=== PATIENT | male | born 1980 | race Caucasian/White ===

== ENCOUNTER 2021-01-27 11:09 | Outpatient (REF) | payer MEDICAID, SELFPAY ==
[2021-01-27 12:15] LABS: MANUAL DIFF FLAG NO
[2021-01-27 12:21] LABS: Basophils Percent Auto 0.3 % (0-2); Eosinophils Absolute Auto 0.1 X10*3/uL (0.0-0.4); Eosinophils Percent Auto 0.9 % (0-4); Hematocrit 50.9 % (42-52); Hemoglobin 16.6 g/dl (14.0-18.0); Imm Gran Abs Auto 0.04 X10*3/uL (0.00-0.03); Imm Gran Pct Auto 0.4 % (0.0-0.4); Lymphocytes Absolute Auto 1.7 X10*3/uL (1.2-4.9); Lymphocytes Percent Auto 17.8 % (20-40); Mean Corpuscular HGB Conc 32.6 g/dl (31.0-36.0); Mean Corpuscular Hemoglobin 26.3 pg (27.0-33.0); Mean Corpuscular Volume 80.5 fL (80-98); Mean Platelet Volume 10.3 fL (9.4-12.4); Monocytes Absolute Auto 0.5 X10*3/uL (0.1-1.2); Neutrophils Percent Auto 75.6 % (45-73); Platelet Count 271 X10*3/uL (160-400); Red Blood Count 6.32 X10*6/uL (4.60-5.80); Red Cell Distribution Width 16.8 % (11.0-16.0); White Blood Count 9.3 X10*3/uL (4.8-10.8)
[2021-01-27 13:00] LABS: Alanine Aminotransferase 25 U/L (0-40); Alkaline Phosphatase 55 U/L (39-117); Anion Gap 13 (12-20); Aspartate Amino Transferase 20 U/L (5-37); Bilirubin Total 0.7 mg/dL (0.0-1.0); Blood Urea Nitrogen 11 mg/dL (9-16); Calcium 9.9 mg/dL (8.4-10.2); Carbon Dioxide 23 mmol/L (22-29); Chloride 107 mmol/L (96-108); Cholesterol 199 mg/dL; Estimated Glomerular Filt Rate > 60; Glucose Random 96 mg/dL (60-115); HDL Cholesterol 42 mg/dL; LDL Cholesterol Calculated 130 mg/dl; Potassium 4.1 mmol/L (3.3-5.1); Sodium 139 mmol/L (135-145); Total Protein 7.6 g/dL (6.5-8.0); Triglycerides 136 mg/dL
[2021-01-27 13:22] LABS: Thyroid Stimulating Hormone 1.16 uIU/mL (0.32-4.0)
[2021-01-27 13:29] LABS: Estimated Average Glucose 111 mg/dL; Hemoglobin A1c % 5.5 %
== END 2021-01-27 11:10 | disposition home or self-care (01) ==
LOC: HO.LAB 11:09
PROVIDERS: PCP Internal Medicine; Visit Provider Internal Medicine
DX: F32.89 Other specified depressive episodes (principal); I10 Essential (primary) hypertension; M54.16 Radiculopathy, lumbar region; M79.642 Pain in left hand
CPT/HCPCS: 36415; 80053; 80061; 83036; 84443; 85025

== ENCOUNTER → 2021-02-10 12:41 | Outpatient (BNVA) | payer MEDICAID, SELFPAY | PROVIDERS: PCP Internal Medicine; Visit Provider Nurse Practitioner Family | DX: M47.816 Spondylosis without myelopathy or radiculopathy, lumbar region (principal); M47.819 Spondylosis without myelopathy or radiculopathy, site unspecified; M53.3 Sacrococcygeal disorders, not elsewhere classified | CPT/HCPCS: 99202 ==

== ENCOUNTER → 2021-02-23 10:20 | Outpatient (BNVA) | payer MEDICAID, SELFPAY | PROVIDERS: PCP Internal Medicine; Visit Provider Nurse Practitioner Family ==

== ENCOUNTER 2021-03-17 06:36 | Outpatient (REF) | payer MEDICAID, SELFPAY ==
--- NOTE | ~2021-03-17 | FL_ITS ---
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 Fluoroscopy time: 0.4 minutes DAP: 3.78 Gycm2 Images: 3 FINDINGS: There are spinal needles overlying the bilateral outer L2, L3, L4, and L5 neural foramen. There is contrast seen in the nerve sheaths. Some early transforaminal epidural extension is suggested. No visible vascular communication. FL/FL guidance in treatment room IMPRESSION: Fluoroscopy for pain management procedures.
== END 2021-03-17 06:37 | disposition home or self-care (01) ==
LOC: HO.RADIR 06:36
PROVIDERS: Visit Provider Internal Medicine
DX: M47.819 Spondylosis without myelopathy or radiculopathy, site unspecified (principal)
CPT/HCPCS: 64493; 64494; 64495; Q9967

== ENCOUNTER → 2021-03-26 13:45 | Outpatient (BNVA) | payer MEDICAID, SELFPAY | PROVIDERS: PCP Internal Medicine; Visit Provider Nurse Practitioner Family ==

== ENCOUNTER 2021-05-18 06:15 | Outpatient (REF) | payer MEDICAID, SELFPAY ==
--- NOTE | ~2021-05-18 | FL_ITS ---
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 COMPARISON: None. TECHNIQUE: Fluoroscopy performed by Dr. Harris. Fluoroscopy time: 0.5 minutes DAP: 11.3 Gycm2 Images: 4 FL/FL guidance in treatment room FINDINGS/IMPRESSION: Fluoroscopy was performed for procedural guidance. Please refer to the procedure report for more detailed findings.
== END 2021-05-18 06:16 | disposition home or self-care (01) ==
LOC: HO.RADIR 06:15
PROVIDERS: Visit Provider Anesthesiology
DX: M47.816 Spondylosis without myelopathy or radiculopathy, lumbar region (principal); M47.819 Spondylosis without myelopathy or radiculopathy, site unspecified; M53.3 Sacrococcygeal disorders, not elsewhere classified
CPT/HCPCS: 64493; 64494; 64495; J3300; Q9967

== ENCOUNTER → 2021-05-26 15:09 | Outpatient (BNVA) | payer MEDICAID, SELFPAY | PROVIDERS: PCP Internal Medicine; Visit Provider Nurse Practitioner Family | DX: M47.816 Spondylosis without myelopathy or radiculopathy, lumbar region (principal); M47.819 Spondylosis without myelopathy or radiculopathy, site unspecified; M53.3 Sacrococcygeal disorders, not elsewhere classified | CPT/HCPCS: 99212 ==

== ENCOUNTER → 2021-07-05 09:52 | Outpatient (BNVA) | payer MEDICAID, SELFPAY | PROVIDERS: PCP Internal Medicine; Visit Provider Anesthesiology | DX: M47.816 Spondylosis without myelopathy or radiculopathy, lumbar region (principal); M47.819 Spondylosis without myelopathy or radiculopathy, site unspecified; M53.3 Sacrococcygeal disorders, not elsewhere classified | CPT/HCPCS: 99212; J3300 ==

== ENCOUNTER → 2021-07-16 09:01 | Day surgery (SDC) | payer MEDICAID, SELFPAY ==
--- NOTE | 2021-07-16 07:33 | P.OP_ITS ---
Operative Note Operative Note Date of Service: 07/16/21 Narrative: Joe is a 41 y.o. male who came to the OR for trial of spinal cord stimulator [employer] for the treatment of post laminectomy syndrome. Preoperatively patient received clindamycin 900 mg 30 minutes before the procedure. After obtaining informed consent the patient was brought to the operating room, he was positioned prone on operating table, [employer] [employer] monitors were applied and patient was deeply sedated.? ?Time-out was performed delineating correct site, side, the nature of the procedure, patient's allergy, preoperative antibiotic if needed.? All operating room staff was participating in OR time-out procedure. Patient's entire back was prepped with ..... twice and draped with full body fenestrated drape.? Sterilely draped C-arm was brought over operating field and square picture of T11,T12, L1 L2 vertebrae as were demonstrated on the screen.? Attention FIRST? was concentrated on the left L1-L2 epidural interspace.? ? For that purpose? the projection of the right pedicle center of the L....vertebra was found on the skin using C-arm.? This location was injected with mixture of lidocaine 2% and Marcaine 0.5% 5 cc.? After that 11 blade was used to make a nola on the skin.? 10 cm 14 gauge? introducer epidural needle was inserted through the nola and advanced to?.... epidural interspace.? The? advancement of the needle was performed on anterior posterior and lateral views.? Guitar wire and loss of resistance technique were used to locate epidural space.? When guitar wire was spread in the epidural fashion, epidural lead was inserted through the skin and it was advanced to bottom of T8 position slightly left from MIDLINE.? After that location of the projection of the LEFT pedicle center of the L..... vertebra was found on the skin using C-arm.? This location was injected with mixture of lidocaine 2% and Marcaine 0.5% 5 cc.? After that 11 blade was used to make a nola on the skin.? 10 cm 14 gauge curved introducer epidural needle was inserted through the nola and advanced to ....... epidural interspace.? The advancement of the needle was performed on anterior posterior and lateral views.? Guitar wire and loss of resistance technique were used to locate epidural space.? When guitar wire was spread in the epidural fashion, epidural lead was inserted through the needle and advanced to the top of T8 epidural interspace slightly right to the existing electrode. Impedance was checked and was satisfactory .? The patient was awake at this moment and epidural leads were connected to testing device.? Testing demonstrated pain of the patient corresponding to the stimulation pattern.? After that the position of epidural leads was found to be satisfactory on the anterior posterior and lateral views.?Introducer epidural needles were carefully withdrawn and care was taken not to dislodge the epidural leads under fluoroscopy guidance. were used to fix the epidural leads to the skin after needles were withdrawn.? The care was taking to preserve the needle position under direct C-arm view.? Sterile dressing was applied and epidural leads were connected to testing device.? At this moment the patient was awaken taking outside of the operating room to PACU where he recovered uneventfully.?
[2021-07-16 09:24] VITALS: BP 148/83; PULSE 101; RESP 16; TEMP 37.2; O2SAT 100
[2021-07-16 09:34] VITALS: BMI 46.0
== END ==
PROVIDERS: PCP Internal Medicine; Visit Provider Anesthesiology
DX: M47.816 Spondylosis without myelopathy or radiculopathy, lumbar region (principal); Z53.20 Procedure and treatment not carried out because of patient's decision for unspecified reasons
CPT/HCPCS: J2250; J3010

== ENCOUNTER → 2021-08-11 07:57 | Outpatient (BNVA) | payer MEDICAID, SELFPAY | PROVIDERS: PCP Internal Medicine; Visit Provider Nurse Practitioner Family ==

== ENCOUNTER 2021-08-11 08:30 | Outpatient (REF) | payer MEDICAID, SELFPAY ==
[2021-08-11 10:02] LABS: Alanine Aminotransferase 22 U/L (0-40); Albumin Level 4.6 g/dL (3.5-5.0); Alkaline Phosphatase 54 U/L (39-117); Anion Gap 11 (12-20); Aspartate Amino Transferase 15 U/L (5-37); Bilirubin Total 0.5 mg/dL (0.0-1.0); Blood Urea Nitrogen 16 mg/dL (9-16); Calcium 10.6 mg/dL (8.4-10.2); Carbon Dioxide 31 mmol/L (22-29); Chloride 104 mmol/L (96-108); Cholesterol 186 mg/dL; Estimated Glomerular Filt Rate > 60; Glucose Random 101 mg/dL (60-115); HDL Cholesterol 54 mg/dL; LDL Cholesterol Calculated 114 mg/dl; Potassium 4.3 mmol/L (3.3-5.1); Sodium 142 mmol/L (135-145); Total Protein 7.3 g/dL (6.5-8.0); Triglycerides 94 mg/dL
== END 2021-08-11 08:31 | disposition home or self-care (01) ==
LOC: HO.LAB 08:30
PROVIDERS: PCP Internal Medicine; Visit Provider Internal Medicine
DX: M47.812 Spondylosis without myelopathy or radiculopathy, cervical region (principal); M67.813 Other specified disorders of tendon, right shoulder; M47.816 Spondylosis without myelopathy or radiculopathy, lumbar region; M47.819 Spondylosis without myelopathy or radiculopathy, site unspecified; M53.3 Sacrococcygeal disorders, not elsewhere classified; E78.00 Pure hypercholesterolemia, unspecified; F32.5 Major depressive disorder, single episode, in full remission
CPT/HCPCS: 20552; 36415; 80053; 80061; 99212

== ENCOUNTER 2021-09-14 06:11 | Outpatient (REF) | payer MEDICAID, SELFPAY ==
--- NOTE | ~2021-09-14 | FL_ITS ---
EXAMINATION: XR FLUOROSCOPY WITH IMAGES CLINICAL INFORMATION: M47.812 - Spondylosis without myelopathy or radiculopathy COMPARISON: None. TECHNIQUE: Fluoroscopy performed by Dr. Stepan Harris. Fluoroscopy time: 1.0 minutes DAP: 3.39 Gycm2 Images: 6 FINDINGS: There are spinal needles overlying the bilateral lateral masses cervical spine approximately levels of C4, C5, and C6. There is contrast in the paraspinal soft tissues and nerve sheaths. No visible vascular communication. FL/FL guidance in treatment room IMPRESSION: Fluoroscopy for pain management procedure.
== END 2021-09-14 06:12 | disposition home or self-care (01) ==
LOC: HO.RADIR 06:11
PROVIDERS: Visit Provider Anesthesiology
DX: M47.812 Spondylosis without myelopathy or radiculopathy, cervical region (principal)
CPT/HCPCS: 64490; 64491

== ENCOUNTER → 2021-09-15 11:58 | Outpatient (BNVA) | payer MEDICAID, SELFPAY | PROVIDERS: PCP Internal Medicine; Visit Provider Anesthesiology ==

== ENCOUNTER 2021-09-21 06:02 | Outpatient (REF) | payer MEDICAID, SELFPAY | END 2021-09-21 06:03 | disposition home or self-care (01) | LOC: HO.RADIR 06:02 | PROVIDERS: Visit Provider Anesthesiology | DX: Z13.89 Encounter for screening for other disorder (principal) | CPT/HCPCS: J3300; Q9967 ==

== ENCOUNTER 2021-11-22 19:10 | Inpatient (IN) | payer OTHER, MEDICAID, SELFPAY ==
[2021-11-22 19:16] VITALS: BP 144/95; BP 200/110; PULSE 80; PULSE 91; RESP 18; TEMP 36.7; O2SAT 96; BMI 51.0
--- NOTE | 2021-11-22 19:16 | ED.PSYCH ---
HPI - Psych General Chief Complaint: Anxiety Stated Complaint: Crisis, emotional distress Time Seen by Provider: 11/22/21 19:16 Source: patient Mode of arrival: EMS Limitations: no limitations History of Present Illness HPI Narrative: very intense verbal argument with father abimbola - became very anxious, wants to speak to clinician no [id number] complaint: anxiety Onset (ago): minute(s) Duration: other (improving) History of same: Yes Relieving factors: none Exacerbating factors: other (fight with family) Context: significant life stressor Associated psychiatric symptoms: other (anxiety) Associated symptoms: denies other symptoms Treatments prior to arrival: none Related Data Home Medications Medication Instructions Recorded Confirmed hydrochlorothiazide 12.5 mg tablet 12.5 mg PO DAILY 02/10/21 08/11/21 sertraline 50 mg tablet (Zoloft) 50 mg PO DAILY 02/10/21 08/11/21 testosterone cypionate 200 mg/mL 200 mg IM QWEEK ea 02/10/21 08/11/21 intramuscular kit Previous Rx's Medication Instructions Recorded ibuprofen 800 mg tablet 800 mg PO TID PRN 30 Days #90 tab 03/26/21 Allergies Allergy/AdvReac Type Severity Reaction Status Date / Time latex Allergy unknown Verified 11/22/21 19:29 hydrocodone AdvReac unknown Verified 11/22/21 19:29 Review of Systems Review of Systems: Constitutional : No Fever, No Chills ENT/Mouth : No Ear Pain, No Nasal Congestion, No sore throat Eyes: No Eye Pain, No Swelling, No Redness Cardiovascular : No Chest Pain, No SOB Respiratory : No Cough, No Sputum, No Dyspnea Gastrointestinal : No Nausea, No Vomiting, No Diarrhea, No Hematochezia, No Melena Genitourinary : No Dysuria, No Urinary Frequency, No Hematuria Musculoskeletal : No Myalgias Skin : No Skin Lesions, No rash Neuro : No Weakness, No Numbness, No Paresthesias, No Dizziness, No Headache Psych : positive Anxiety, positive Depression, no SI/HI Heme/Lymph: No Lymphadenopathy Endocrine : No Polyuria, No Polydipsia All other systems reviewed and are negative [facility] Past Medical History Attestation statement: The following information was validated with the patient. Medical History Arthritis, rheumatoid Asthma Back pain Cholecystectomy planned Depression DJD (degenerative joint disease), thoracic Hypertension Obesity Spondylosis of cervical spine Surgical History H/O arthroscopy of shoulder Social History Social History Patient Tobacco Use Status: Never used Tobacco Advance Directives: No Advance Directives Information Provided: No Physical Exam Vital Signs: Vital Signs: Last Vital Signs Temp 98.0 F 11/22/21 19:16 Pulse 91 11/22/21 19:16 Resp 18 11/22/21 19:16 BP 144/95 H 11/22/21 19:16 Pulse Ox 96 11/22/21 19:16 BMI result Body Mass Index 51.0 Appearance: Alert. Oriented X3. No acute distress. Calm and cooperative Eyes: Pupils equal, round and reactive to light. ENT: Pharynx normal. Neck: Normal inspection. Neck supple. CVS: Normal heart rate and rhythm. Pulses normal. Respiratory: No respiratory distress. Breath sounds normal. Abdomen: Soft and non-tender. Obese Skin: Skin warm and dry. Normal skin color. Normal skin turgor. Extremities: No lower extremity edema. No calf ttp Neuro: Oriented X 3. No motor deficit. No sensory deficit. Course Course Course Narrative: signed out pending CARE team input MDM - Psych MDM Narrative Medical decision making narrative: 41 yo male with hx of back issues, anxiety, low testosterone not currently receiving correct medications - at this time he had a fight with his father about moving to [place]. He felt very anxious. He has no SI/HI. Requesting to talk to SW. Will offer ativan and CARE team input. Lab Data Labs: Lab Results 11/22/21 Range/Units 19:31 COVID-19 (NIMESH) Negative (Negative) COVID-19 Clin Com See Note Discharge Plan Discharge Clinical Impression: Anxiety Patient Disposition: Still a Patient Instructions: Anxiety (ED) Prescriptions: No Action hydrochlorothiazide 12.5 mg tablet 12.5 mg PO DAILY 0RF sertraline [Zoloft] 50 mg tablet 50 mg PO DAILY 0RF testosterone cypionate 200 mg/mL kit 200 mg IM QWEEK 0RF ibuprofen 800 mg tablet 800 mg PO TID PRN (Reason: pain) 30 Days Qty: 90 0RF
[2021-11-22] MEDS: LORazepam 1 MG TABLET PO (19:30)
[2021-11-22 19:53] LABS: COVID-19 Test Negative (Negative); IDNOW Serial# 55D5AD1C
--- NOTE | 2021-11-22 20:51 | MHC.CARE ---
CARE team consult received for pt who arrived by ambulance s/p a verbal altercation with his father. Pt's MORENA called 911 after the pt made several aggressive and homicidal threats toward his father and pt's sister having to physical stand between the pt and his father. Pt reported that he has been feeling frustrated with the medication management he receives at [facility] and the care he receives at the hospital[facility], stressed and overwhelmed with the process of preparing himself and his father for moving back to [place], and coping with the challenges he experiences with his father's heavy alcohol use. Pt expressed that he doesn't feel that his medications are helping and that he needs to find someone that will help, and that he is looking forward to getting back to [place] to resume the treatment he received down there, which he stated was actually helpful. He reported that approx one year ago he and his father moved up to [place] to stay with his sister after they were evicted from their apartment in [place] when a new landlord purchased the apartment complex that they lived in. Pt reported that he is continuing to feel intense anger and frustration with his father and wanting to hurt him. He initially stated that he need to stay somewhere for a few days to clear his mind and get his medications fixed, but then reported that he wouldn't want to go to respite or anywhere that there's other people who will be around him. He reported that being in the hospital won't do anything for him because the doctor would just look at the meds and then tell me to follow up with my psych doc. Pt reported that he doesn't feel that his sister will want to him to return to the home tonight and gave this creative writer verbal permission to contact his sister. This creative writer called pt's sister, Kavya [phone], who expressed concern with how increasingly irritable and dysregulated he has been over the past month. She reported that there have been a few incidents where he has become irate and threatening, which have been worsening in severity, however tonight was a notable escalation. Her was present during the phone call and he shared that two nights ago the pt had become upset and walked out of the home, saying I'm leaving, I don't care where I go, you won't know where I'm at, I'll be . He was found outside in the rain by her , who reported that he was making comments about wanting to kill people. Kavya is advocating for the him to receive treatment to prevent the outbursts from continuing to escalate. Pt has been referred for a full crisis evaluation. ED attending physician updated re: current recommendation. [facility] unable to send a clinician at this time. This creative writer will complete the crisis evaluation.
[2021-11-22 22:06] LABS: MANUAL DIFF FLAG NO
[2021-11-22 22:12] LABS: Basophils Percent Auto 0.2 % (0-2); Eosinophils Absolute Auto 0.2 X10*3/uL (0.0-0.4); Eosinophils Percent Auto 1.7 % (0-4); Hematocrit 44.2 % (42.0-52.0); Hemoglobin 14.7 g/dl (14.0-18.0); Imm Gran Abs Auto 0.04 X10*3/uL (0.00-0.03); Imm Gran Pct Auto 0.4 % (0.0-0.4); Lymphocytes Absolute Auto 1.5 X10*3/uL (1.2-4.9); Lymphocytes Percent Auto 16.3 % (20-40); Mean Corpuscular HGB Conc 33.3 g/dl (31.0-36.0); Mean Corpuscular Hemoglobin 27.2 pg (27.0-33.0); Mean Corpuscular Volume 81.9 fL (80.0-98.0); Mean Platelet Volume 10.5 fL (9.4-12.4); Monocytes Absolute Auto 0.4 X10*3/uL (0.1-1.2); Monocytes Percent Auto 4.2 % (2-11); Neutrophils Absolute Auto 7.3 x10*3/uL (2.0-8.3); Neutrophils Percent Auto 77.2 % (45-73); Platelet Count 241 X10*3/uL (160-400); White Blood Count 9.4 X10*3/uL (4.8-10.8)
[2021-11-22 22:28] LABS: Ethanol < 10 mg/dL
[2021-11-22 22:30] LABS: Alanine Aminotransferase 50 U/L (0-40); Albumin Level 4.4 g/dL (3.5-5.0); Alkaline Phosphatase 66 U/L (39-117); Anion Gap 14 (12-20); Aspartate Amino Transferase 23 U/L (5-37); Bilirubin Direct < 0.2 mg/dL (0.0-0.5); Bilirubin Total 0.4 mg/dL (0.0-1.0); Blood Urea Nitrogen 16 mg/dL (9-16); Calcium 9.9 mg/dL (8.4-10.2); Carbon Dioxide 25 mmol/L (22-29); Chloride 108 mmol/L (96-108); Estimated Glomerular Filt Rate > 60; Glucose Random 145 mg/dL (60-115); Sodium 143 mmol/L (135-145); Total Protein 6.9 g/dL (6.5-8.0)
[2021-11-22 23:17] LABS: Amphetamine Screen Urine Not Detected (Not Detect); Barbiturates, Urine Not Detected (Not Detect); Benzodiazepines Screen Urine Not Detected (Not Detect); Cannabinoid Screen Urine Not Detected (Not Detect); Cocaine Screen Urine Not Detected (Not Detect); Fentanyl, urine Not Detected (Not Detect); Opiate Screen Urine Not Detected (Not Detect); Phencyclidine Screen Urine Not Detected (Not Detect)
[2021-11-23 05:58] VITALS: BP 145/83; PULSE 77; RESP 16; TEMP 36.8; O2SAT 97
--- NOTE | 2021-11-23 07:45 | PC.NURSE ---
patient appears to remain asleep at present respirations are even and unlabored patient appears in no distress
[2021-11-23 07:57] VITALS: BP 141/85; PULSE 79; RESP 14; TEMP 36.8; O2SAT 98
--- NOTE | 2021-11-23 10:22 | PC.NURSE ---
patient requested to leave, relayed message to care team
[2021-11-23] MEDS: Ibuprofen 800 MG TABLET PO (13:06)
--- NOTE | 2021-11-23 14:34 | PHA.MEDREC ---
Pharmacy Consult ? Medication Reconciliation Pharmacy has completed the medication reconciliation.
[2021-11-23 17:31] VITALS: BP 147/92; PULSE 92; TEMP 36.3; O2SAT 98
--- NOTE | 2021-11-23 18:02 | P.HPPS_ITS ---
HPI Date of Service: 11/23/21 Chief Complaint: Depression,Anxiety Sources of Information: patient interviewed, chart reviewed and crisis/core team assessment reviewed HPI Subjective Notes: Hines Warning and Conditional Voluntary Healthcare Proxy: No Guardianship: No Medical Problems Affecting Mental Status: No Narrative: Joe is a 41 yo male who carries a dx of MDD recurrent, PTSD, r/o BPD. He has chronic back pain, hx of low testosterone and reports he is currently in ?withdrawal? as he was getting testosterone inj but has not had them x 1 month. He presented to [facility] 11/22/21 after his [id number] called 911 due to pt having an altercation with his father, in which he made homicidal threats towards his father. Pt is supposed to move back to [place] with his father in a week, however pt fought with his father over his heavy alcohol use. Suzanne negqyunh e, no alcohol abuse. I evaluated the pt this evening and upon interview he reports he has been non- adherent with his psych medications and has a hx of going ?cold turkey.? Was previously on sertraline, lamictal, and trileptal. He only takes gabapentin 100 mg once a day in the morning. Not taking hctz. Says ?I dont wanna take too much psych meds anymore.? Sleep is poor, attributes this to chronic back and neck pain. Mood is ?up and down,? pt believes this has ?a lot to do with testosterone,? as he says he has been diagnosed with ?extremely low? testosterone, used to get an injection every week from urologist but ran out over a month ago. Says since then he has noticed worsening irritability and ?frustration.? Stressors include financial stress, as he is getting ready to move back to [place] imminently. Says he does not have ?too much? depression, thinks he has ?more anxiety? and irritability. Denies SI, says he made threats against his father because he was ?just frustrated.? Feels safe here.? Past Psychiatric History: -Hx of [facility] in [place] for SI and suicidal gesture in 1999, at [facility] for SI and agitation in 2016. -Hx of OP psych services at [facility] -Past med trials: Trileptal (memory loss, tried it 2x), Vyvanse (?helped big time,? but doesnt want controlled substance, as he does not want to experience withdrawal), Klonopin, Seroquel (wt gain), Madeira (dizziness), Ativan, Lexapro (?did a little bit,? however discontinued due to feeling ?dizzy?), Prozac (lack of efficacy), Zoloft (helped but felt ?dizzy?), Buspar (helped), Strattera (helped), Lamictal (lack of efficacy), Concerta, Adderall Medical Evaluation Reviewed: Yes [facility] Medical History Arthritis, rheumatoid Asthma Back pain Cholecystectomy planned Depression DJD (degenerative joint disease), thoracic Hypertension Obesity Spondylosis of cervical spine Surgical History H/O arthroscopy of shoulder Family History: -Substance use, ?mood swings Social History: -Pt is currently staying with his sister, her , and her two children. He and his father were living in an apt in [place], however they were evicted and moved to [place]. -Pt?s mother is ([place]). -In 2006 the pt was arrested after assaulting his sister and spent 9 days in [facility] with domestic abuse charges. Trauma History: -Per chart, pt had a poor relationship with his mother and I told her that I wanted her and then the next day she . Father is alcoholic. Diagnostics Vital Signs (24Hr): Vital Signs - 24 hr 11/22/21 19:16 11/23/21 05:58 11/23/21 07:57 Temperature 98.0 F 98.3 F 98.3 F Pulse Rate 91 77 79 Respiratory Rate 18 16 14 Blood Pressure 144/95 H 145/83 H 141/85 H Pulse Oximetry 96 97 98 11/23/21 17:31 Temperature 97.4 F Pulse Rate 92 Respiratory Rate Blood Pressure 147/92 H Pulse Oximetry 98 BMI result Body Mass Index 51.0 Labs Results: 11/22/21 21:59 11/22/21 21:59 Labs: Laboratory Results - last 48 hr 11/22/21 11/22/21 11/22/21 19:31 21:59 21:59 WBC 9.4 RBC 5.40 Hgb 14.7 Hct 44.2 MCV 81.9 MCH 27.2 MCHC 33.3 RDW 14.0 Plt Count 241 MPV 10.5 Immature Gran % (Auto) 0.4 Neut % (Auto) 77.2 H Lymph % (Auto) 16.3 L [place] % (Auto) 4.2 Eos % (Auto) 1.7 Baso % (Auto) 0.2 Lymph # (Auto) 1.5 [place] # (Auto) 0.4 Eos # (Auto) 0.2 Baso # (Auto) 0.0 Abs Immat Gran (auto) 0.04 H Absolute Neuts (auto) 7.3 Absolute Nucleated RBC 0.000 Nucleated RBC % (auto) 0.0 Sodium 143 Potassium 4.0 Chloride 108 Carbon Dioxide 25 Anion Gap 14 BUN 16 Creatinine 0.96 Estim Creat Clear Calc 163.0 Estimated GFR > 60 Random Glucose 145 H D Calcium 9.9 D Total Bilirubin 0.4 Direct Bilirubin < 0.2 AST 23 D ALT 50 H Alkaline Phosphatase 66 D Total Protein 6.9 Albumin 4.4 Urine Opiates Screen Urine Fentanyl Screen Ur Barbiturates Screen Ur Phencyclidine Scrn Ur Amphetamines Screen U Benzodiazepines Scrn Urine Cocaine Screen U Marijuana (THC) Screen Ethyl Alcohol COVID-19 (NIMESH) Negative COVID-19 [employer] Com See Note 11/22/21 11/22/21 21:59 22:51 WBC RBC Hgb Hct MCV MCH MCHC RDW Plt Count MPV Immature Gran % (Auto) Neut % (Auto) Lymph % (Auto) [place] % (Auto) Eos % (Auto) Baso % (Auto) Lymph # (Auto) [place] # (Auto) Eos # (Auto) Baso # (Auto) Abs Immat Gran (auto) Absolute Neuts (auto) Absolute Nucleated RBC Nucleated RBC % (auto) Sodium Potassium Chloride Carbon Dioxide Anion Gap BUN Creatinine Estim Creat Clear Calc Estimated GFR Random Glucose Calcium Total Bilirubin Direct Bilirubin AST ALT Alkaline Phosphatase Total Protein Albumin Urine Opiates Screen Not Detected Urine Fentanyl Screen Not Detected Ur Barbiturates Screen Not Detected Ur Phencyclidine Scrn Not Detected Ur Amphetamines Screen Not Detected U Benzodiazepines Scrn Not Detected Urine Cocaine Screen Not Detected U Marijuana (THC) Screen Not Detected Ethyl Alcohol < 10 COVID-19 (NIMESH) COVID-19 Clin Com Meds/Allergies Meds Home Medications Acetaminophen (Acetaminophen 325 Mg Tablet) 650 mg PO Q6H PRN PRN Reason: Headache/Pain Mild Scale (1-3) Last Admin: 11/24/21 12:52 Dose: 650 mg Documented by: Al Hydroxide/Mg Hydroxide (Magnesium Hydrox/Alum Hydrox 30 Ml Oral.Susp) 30 ml PO Q6H PRN PRN Reason: Heartburn/Nausea Clonidine HCl (Clonidine Hcl 0.1 Mg Tablet) 0.1 mg PO TID PRN; Protocol PRN Reason: agitation, hyperarousal Duloxetine HCl (Duloxetine Hcl 20 Mg Capsule.Dr) 20 mg PO DAILY [facility] Last Admin: 11/24/21 13:59 Dose: 20 mg Documented by: Gabapentin (Gabapentin 100 Mg Capsule) 100 mg PO DAILY [facility] Last Admin: 11/24/21 08:39 Dose: 100 mg Documented by: Hydroxyzine HCl (Hydroxyzine Hcl 25 Mg Tablet) 25 mg PO BEDTIME PRN PRN Reason: Anxiety Ibuprofen (Ibuprofen 800 Mg Tablet) 800 mg PO Q8H PRN PRN Reason: Pain, Moderate (Pain Scale 4-6 Last Admin: 11/24/21 08:51 Dose: 800 mg Documented by: Magnesium Hydroxide (Milk Of Magnesia 30 Ml Oral.Susp) 30 ml PO DAILY PRN PRN Reason: Constipation Trazodone HCl (Trazodone Hcl 50 Mg Tablet) 50 mg PO BEDTIME PRN PRN Reason: Insomnia Allergies Allergies Allergy/AdvReac Type Severity Reaction Status Date / Time latex Allergy unknown Verified 11/22/21 19:29 hydrocodone AdvReac unknown Verified 11/22/21 19:29 Mental Status Exam Mental Status Exam Narrative: A&O. In hospital attire, laying down, obese, okay hygiene. Poor eye contact, attentive. No Tics or Tremors. No abnormal involuntary movements. Calm, cooperative, engaged. Non-pressured speech, spontaneous with regular rate and rhythm, normal volume and prosody. No prolonged speech latency or dysarthria. Mood is ?up and down,? affect is blunted. Denies SI/SIB/HI upon inquiry. Denies A/VH or delusional thought content. Thoughts are coherent, organized. No known cognitive or memory impairment. Insight/ Judgment fair and adequate. Assessment & Plan Assessment & Plan (1) MDD (major depressive disorder), recurrent episode, moderate: Status: Acute Code(s): F33.1 - Major depressive disorder, recurrent, moderate (2) Post traumatic stress disorder (PTSD): Status: Acute Code(s): F43.10 - Post-traumatic stress disorder, unspecified Plan Joe is a 41 yo male who carries a dx of MDD recurrent, PTSD, r/o BPD. He has chronic back pain, hx of low testosterone and reports he is currently in ?withdrawal? as he has not had testosterone inj x 1 month. He presented to [facility] 11/22/21 after his cogdela-sw-iph called 911 due to pt having an altercation with his father, in which he made homicidal threats towards his father. No s ubstance or alcohol use concerns. Pt is non-adherent on psych meds, reports multiple med trials and discontinuing meds due to sensitivity to side effects. Plan: Pt will continue on gabapentin 100 mg QD. Consider mood stabilizer due to agitation, up and down moods. Q15 min safety checks, CV, 3 day 11/23/21 Monitor response to medications. Monitor for safety in the milieu. Discharge on stabilization. Patient seen. Chart reviewed. Discussed with team. Obtain collateral contact info?as needed Patient educated on: medication risk/benefits Reason for continued inpatient stay Substantial Risk for: med/psych decompensation
--- NOTE | 2021-11-23 23:54 | PC.ADMIT ---
Patient is a single 41 year old patient admitted as a CV admission to and place on 15 minute safety checks. Patient was medically cleared in the [facility] evaluated by the CARE team and deemed in need of IPLOC secondary to making HI statements towards his father, mood lability and SI statements. Patient has been having mood changes for a few months and feels that he needs medication adjustments. The patient and his father are planning on moving to [place] and the patient said he needs to have his medications, including his testosterone need to be reviewed. Patient said that not working and financial issues have contributed to his mood lability. Patient denied any current SI, HI, AH or VH. He said he was eager to get help. The patient also said he has had chronic pain and that also causes him to be irritable. Patient cooperative with admission process. Legals signed and orders obtained. Patient resting quietly at shift change.
[2021-11-24 06:05] VITALS: BP 122/68; PULSE 58; RESP 18; TEMP 36.3; O2SAT 99
[2021-11-24] MEDS: Gabapentin 100 MG CAPSULE PO (08:39)
[2021-11-24] MEDS: Ibuprofen 800 MG TABLET PO (08:51)
[2021-11-24 09:02] LABS: Estimated Average Glucose 120 mg/dL; Hemoglobin A1c % 5.8 %
[2021-11-24 09:40] LABS: Cholesterol 196 mg/dL; HDL Cholesterol 36 mg/dL; LDL Cholesterol Calculated 128 mg/dl; Magnesium 2.1 mg/dL (1.6-2.6); Triglycerides 164 mg/dL
[2021-11-24 09:48] LABS: Free T4 (Free Thyroxine) 1.03 ng/dL (0.71-1.85); Thyroid Stimulating Hormone 2.03 uIU/mL (0.32-4.0)
[2021-11-24 09:59] LABS: Folate 4.9 ng/mL (> or = 4.0); Vitamin B12 227 pg/mL (200-900)
[2021-11-24] MEDS: Acetaminophen 325 MG TABLET 650 MG PO (12:52)
[2021-11-24] MEDS: DULoxetine HCl 20 MG CAPSULE.DR PO (13:59)
[2021-11-24 18:30] VITALS: BP 150/71; PULSE 80; TEMP 36.7; O2SAT 98
--- NOTE | 2021-11-24 18:49 | HO.PSYCHPN ---
Subjective Subjective Date of Service: 11/24/21 Reason For Visit: Depression,Anxiety Interim History: Patient seen and discussed with team. Patient evaluated today and upon interview pt reports he wants to start a medication to help with his irritability and frustration, the mood swings, and his up and down moods. Feels bored. Sleep is poor because of back pain. Says in the past Cymbalta helped a little bit, open to re-trialing this. In the milieu, patient is safe but isolative in behavior. Denies SI/SIB/HI upon inquiry. Denies irritability or assaultive ideation. Says he feels safe. Medication Compliance: Yes Side effects from medications: No Attending Groups: No Review of Systems Acute medical concerns: No Medical Review of Systems: unchanged Mental Status Exam Mental Status Exam Narrative: A&O. In hospital attire, laying down, obese, okay hygiene. Poor eye contact, attentive. No Tics or Tremors. No abnormal involuntary movements. Calm, cooperative, engaged. Non-pressured speech, spontaneous with regular rate and rhythm, normal volume and prosody. No prolonged speech latency or dysarthria. Mood is ?up and down,? affect is blunted. Denies SI/SIB/HI upon inquiry. Denies A/VH or delusional thought content. Thoughts are coherent, organized. No known cognitive or memory impairment. Insight/ Judgment fair and adequate. Diagnostics Vital Signs (24Hr): Vital Signs - 24 hr 11/24/21 06:05 11/24/21 18:30 Temperature 97.4 F 98.1 F Pulse Rate 58 80 Respiratory Rate 18 Blood Pressure 122/68 150/71 H Pulse Oximetry 99 98 BMI result Body Mass Index 51.0 Labs Results: 11/22/21 21:59 11/22/21 21:59 Labs: Laboratory Results - last 48 hr 11/24/21 11/24/21 11/24/21 07:56 07:56 07:56 Estimat Average Glucose 120 Hemoglobin A1c % 5.8 Magnesium 2.1 Triglycerides 164 Cholesterol 196 LDL Cholesterol, Calc 128 HDL Cholesterol 36 D Vitamin B12 227 Folate 4.9 TSH 2.03 Free T4 1.03 Medications Medications Current Medications Acetaminophen (Acetaminophen 325 Mg Tablet) 650 mg PO Q6H PRN PRN Reason: Headache/Pain Mild Scale (1-3) Last Admin: 11/24/21 12:52 Dose: 650 mg Documented by: Al Hydroxide/Mg Hydroxide (Magnesium Hydrox/Alum Hydrox 30 Ml Oral.Susp) 30 ml PO Q6H PRN PRN Reason: Heartburn/Nausea Clonidine HCl (Clonidine Hcl 0.1 Mg Tablet) 0.1 mg PO TID PRN; Protocol PRN Reason: agitation, hyperarousal Duloxetine HCl (Duloxetine Hcl 20 Mg Capsule.) 20 mg PO DAILY [facility] Last Admin: 11/24/21 13:59 Dose: 20 mg Documented by: Gabapentin (Gabapentin 100 Mg Capsule) 100 mg PO DAILY [facility] Last Admin: 11/24/21 08:39 Dose: 100 mg Documented by: Hydroxyzine HCl (Hydroxyzine Hcl 25 Mg Tablet) 25 mg PO BEDTIME PRN PRN Reason: Anxiety Ibuprofen (Ibuprofen 800 Mg Tablet) 800 mg PO Q8H PRN PRN Reason: Pain, Moderate (Pain Scale 4-6 Last Admin: 11/24/21 08:51 Dose: 800 mg Documented by: Magnesium Hydroxide (Milk Of Magnesia 30 Ml Oral.Susp) 30 ml PO DAILY PRN PRN Reason: Constipation Trazodone HCl (Trazodone Hcl 50 Mg Tablet) 50 mg PO BEDTIME PRN PRN Reason: Insomnia Allergies Allergies Allergy/AdvReac Type Severity Reaction Status Date / Time latex Allergy unknown Verified 11/22/21 19:29 hydrocodone AdvReac unknown Verified 11/22/21 19:29 Assessment & Plan Assessment & Plan (1) MDD (major depressive disorder), recurrent episode, moderate: Status: Acute Code(s): F33.1 - Major depressive disorder, recurrent, moderate (2) Post traumatic stress disorder (PTSD): Status: Acute Code(s): F43.10 - Post-traumatic stress disorder, unspecified Plan Joe is a 41 yo male who carries a dx of MDD recurrent, PTSD, r/o BPD. He has chronic back pain, hx of low testosterone and reports he is currently in ?withdrawal? as he has not had testosterone inj x 1 month. He presented to [facility] ED 11/22/21 after his bdurifj-iq-lmi called 911 due to pt having an altercation with his father, in which he made homicidal threats towards his father. No substance or alcohol use concerns. Pt is non-adherent on psych meds, reports multiple med trials and discontinuing meds due to sensitivity to side effects. Plan: Pt will continue on gabapentin 100 mg QD. Consider mood stabilizer due to agitation, up and down moods. 11/24: Pt asks to re-trial cymbalta due to past benefit for depressed mood, irritability, may help with back pain. Will start clonidine 0.1 mg TID PRN as pt reports past benefit on this medication for anxiety, agitation. Q15 min safety checks, CV, 3 day 11/23/21 Monitor response to medications. Monitor for safety in the milieu. Discharge on stabilization. Patient seen. Chart reviewed. Discussed with team. Obtain collateral contact info?as needed I spent minutes with the patient and/or on the patient floor today, greater than?50% of which was spent counseling/coordinating care. Patient educated on: medication risk/benefits Reason for contiued inpatient stay Substantial Risk for: med/psych decompensation
[2021-11-25 06:00] VITALS: BP 142/82; PULSE 78; RESP 18; TEMP 36.8; O2SAT 98
[2021-11-25 07:00] VITALS: BMI 48.6
[2021-11-25] MEDS: Gabapentin 100 MG CAPSULE PO (08:20)
[2021-11-25] MEDS: DULoxetine HCl 20 MG CAPSULE.DR PO (08:20)
[2021-11-25] MEDS: Bismuth Subsalicylate 262 MG TABLET PO (17:17)
[2021-11-25] MEDS: Acetaminophen 325 MG TABLET 650 MG PO (17:17)
[2021-11-25] MEDS: cloNIDine HCL 0.1 MG TABLET PO (17:17)
[2021-11-25 18:00] VITALS: BP 129/86; PULSE 92; RESP 16; TEMP 36.6; O2SAT 98
--- NOTE | 2021-11-25 19:24 | P.PNPSI_ITS ---
Subjective Subjective Date of Service: 11/25/21 Reason For Visit: Depression,Anxiety Interim History: Patient seen and discussed with team. Patient evaluated today and upon interview he reports he is not too bad. On cymbalta, reports GI distress, my stomach is hurting like crazy. Hasnt used clonidine yet. Says he is feeling safe. Feels bored and frustrated, attributes this to wanting to get out of here. In the milieu, patient is safe but isolative in behavior. Denies SI/SIB/HI upon inquiry. Denies irritability or assaultive ideation. Says he feels safe. Medication Compliance: Yes Side effects from medications: Yes Attending Groups: No Review of Systems Acute medical concerns: No Medical Review of Systems: unchanged Mental Status Exam Mental Status Exam Narrative: A&O. In hospital attire, laying down, obese, okay hygiene. Poor eye contact, attentive. No Tics or Tremors. No abnormal involuntary movements. Calm, cooperative, engaged. Non-pressured speech, spontaneous with regular rate and rhythm, normal volume and prosody. No prolonged speech latency or dysarthria. Mood is ?bored,? affect is appropriate. Denies SI/SIB/HI upon inquiry. Denies A/VH or delusional thought content. Thoughts are coherent, organized. No known cognitive or memory impairment. Insight/ Judgment fair and adequate. Diagnostics Vital Signs (24Hr): Vital Signs - 24 hr 11/25/21 18:00 11/26/21 06:20 Temperature 97.8 F 97 F Pulse Rate 92 106 H Respiratory Rate 16 18 Blood Pressure 129/86 154/80 H Pulse Oximetry 98 98 BMI result Body Mass Index 48.6 Labs Results: 11/22/21 21:59 11/22/21 21:59 Labs: Laboratory Results - last 48 hr 11/24/21 11/24/21 07:56 07:56 Magnesium 2.1 Triglycerides 164 Cholesterol 196 LDL Cholesterol, Calc 128 HDL Cholesterol 36 D Vitamin B12 227 Folate 4.9 TSH 2.03 Free T4 1.03 Medications Medications Current Medications Acetaminophen (Acetaminophen 325 Mg Tablet) 650 mg PO Q6H PRN PRN Reason: Headache/Pain Mild Scale (1-3) Last Admin: 11/25/21 17:17 Dose: 650 mg Documented by: Al Hydroxide/Mg Hydroxide (Magnesium Hydrox/Alum Hydrox 30 Ml Oral.Susp) 30 ml PO Q6H PRN PRN Reason: Heartburn/Nausea Last Admin: 11/26/21 06:36 Dose: 30 ml Documented by: Bismuth Subsalicylate (Bismuth Subsalicylate 262 Mg Tablet) 262 mg PO QID PRN PRN Reason: upset stomach Last Admin: 11/25/21 17:17 Dose: 262 mg Documented by: Clonidine HCl (Clonidine Hcl 0.1 Mg Tablet) 0.1 mg PO TID PRN; Protocol PRN Reason: agitation, hyperarousal Last Admin: 11/26/21 08:16 Dose: 0.1 mg Documented by: Duloxetine HCl (Duloxetine Hcl 20 Mg Capsule.Dr) 20 mg PO DAILY [facility] Last Admin: 11/26/21 08:07 Dose: 20 mg Documented by: Gabapentin (Gabapentin 100 Mg Capsule) 100 mg PO DAILY [facility] Last Admin: 11/26/21 08:07 Dose: 100 mg Documented by: Hydroxyzine HCl (Hydroxyzine Hcl 25 Mg Tablet) 25 mg PO BEDTIME PRN PRN Reason: Anxiety Ibuprofen (Ibuprofen 800 Mg Tablet) 800 mg PO Q8H PRN PRN Reason: Pain, Moderate (Pain Scale 4-6 Last Admin: 11/24/21 08:51 Dose: 800 mg Documented by: Magnesium Hydroxide (Milk Of Magnesia 30 Ml Oral.Susp) 30 ml PO DAILY PRN PRN Reason: Constipation Trazodone HCl (Trazodone Hcl 50 Mg Tablet) 50 mg PO BEDTIME PRN PRN Reason: Insomnia Allergies Allergies Allergy/AdvReac Type Severity Reaction Status Date / Time latex Allergy unknown Verified 11/22/21 19:29 hydrocodone AdvReac unknown Verified 11/22/21 19:29 Assessment & Plan Assessment & Plan (1) MDD (major depressive disorder), recurrent episode, moderate: Status: Acute Code(s): F33.1 - Major depressive disorder, recurrent, moderate (2) Post traumatic stress disorder (PTSD): Status: Acute Code(s): F43.10 - Post-traumatic stress disorder, unspecified Plan Joe is a 41 yo male who carries a dx of MDD recurrent, PTSD, r/o BPD. He has chronic back pain, hx of low testosterone and reports he is currently in ?withdrawal? as he has not had testosterone inj x 1 month. He presented to [facility] ED 11/22/21 after his nhdzyni-tz-aer called 911 due to pt having an altercation with his father, in which he made homicidal threats towards his father. No substance or alcohol use concerns. Pt is non-adherent on psych meds, reports multiple med trials and discontinuing meds due to sensitivity to side effects. Plan: Pt will continue on gabapentin 100 mg QD. Consider mood stabilizer due to agitation, up and down moods. 11/24: Pt asks to re-trial cymbalta due to past benefit for depressed mood, irritability, may help with back pain. Will start clonidine 0.1 mg TID PRN as pt reports past benefit on this medication for anxiety, agitation. 11/25: reports GI SE on cymbalta, otherwise tolerating it and wants to continue trial. Continues to report issues with anxiety. Q15 min safety checks, CV, 3 day 11/23/21 Monitor response to medications. Monitor for safety in the milieu. Discharge on stabilization. Patient seen. Chart reviewed. Discussed with team. Obtain collateral contact info?as needed I spent minutes with the patient and/or on the patient floor today, greater than?50% of which was spent counseling/coordinating care. Patient educated on: medication risk/benefits Reason for contiued inpatient stay Substantial Risk for: med/psych decompensation
[2021-11-26 06:20] VITALS: BP 154/80; PULSE 106; RESP 18; TEMP 36.1; O2SAT 98
[2021-11-26] MEDS: Magnesium Hydrox/Alum Hydrox 30 ML ORAL.SUSP PO (06:36)
[2021-11-26] MEDS: Gabapentin 100 MG CAPSULE PO (08:07)
[2021-11-26] MEDS: DULoxetine HCl 20 MG CAPSULE.DR PO (08:07)
[2021-11-26] MEDS: cloNIDine HCL 0.1 MG TABLET PO (08:16)
--- NOTE | 2021-11-26 20:28 | P.DS_ITS ---
DS: Providers Provider Date of Service: 11/26/21 Date of admission: 11/23/21 16:03 Date of discharge: 11/26/21 Primary care physician: Anu Zaragoza MD Admitting clinician: Tabitha Sanon Attending physician on admission: Omero Bang Attending physician on discharge: Omero Bang Discharging clinician: Tabitha Sanon DS: Diagnosis Discharge Diagnosis (1) MDD (major depressive disorder), recurrent episode, moderate: (2) Post traumatic stress disorder (PTSD): DS: Medications Discharge Medications Home Medications: Home Medications Medication Instructions Recorded Confirmed gabapentin 100 mg capsule 1 cap PO TID 11/23/21 11/23/21 Previous Rx's Medication Instructions Recorded clonidine HCl 0.1 mg tablet 0.1 mg PO TID PRN #30 tab 11/26/21 duloxetine 20 mg capsule,delayed 20 mg PO DAILY #30 cap 11/26/21 release Mental Status Exam Mental Status Exam Narrative: A&O. In hospital attire, laying down, obese, okay hygiene. Poor eye contact, attentive. No Tics or Tremors. No abnormal involuntary movements. Calm, cooperative, engaged. Non-pressured speech, spontaneous with regular rate and rhythm, normal volume and prosody. No prolonged speech latency or dysarthria. Mood is ?stable,? affect is appropriate. Denies SI/SIB/HI upon inquiry. Denies A/VH or delusional thought content. Thoughts are coherent, organized. No known cognitive or memory impairment. Insight/ Judgment fair and adequate. Data Data Completed and Pending Completed studies during hospitalization [Text1]: 11/22/21 11/22/21 11/22/21 19:31 21:59 21:59 WBC 9.4 RBC 5.40 Hgb 14.7 Hct 44.2 MCV 81.9 MCH 27.2 MCHC 33.3 RDW 14.0 Plt Count 241 MPV 10.5 Immature Gran % (Auto) 0.4 Neut % (Auto) 77.2 H Lymph % (Auto) 16.3 L [place] % (Auto) 4.2 Eos % (Auto) 1.7 Baso % (Auto) 0.2 Lymph # (Auto) 1.5 [place] # (Auto) 0.4 Eos # (Auto) 0.2 Baso # (Auto) 0.0 Abs Immat Gran (auto) 0.04 H Absolute Neuts (auto) 7.3 Absolute Nucleated RBC 0.000 Nucleated RBC % (auto) 0.0 Sodium 143 Potassium 4.0 Chloride 108 Carbon Dioxide 25 Anion Gap 14 BUN 16 Creatinine 0.96 Estim Creat Clear Calc 163.0 Estimated GFR > 60 Random Glucose 145 H D Estimat Average Glucose Hemoglobin A1c % Calcium 9.9 D Magnesium Total Bilirubin 0.4 Direct Bilirubin < 0.2 AST 23 D ALT 50 H Alkaline Phosphatase 66 D Total Protein 6.9 Albumin 4.4 Triglycerides Cholesterol LDL Cholesterol, Calc HDL Cholesterol Vitamin B12 Folate TSH Free T4 Urine Opiates Screen Urine Fentanyl Screen Ur Barbiturates Screen Ur Phencyclidine Scrn Ur Amphetamines Screen U Benzodiazepines Scrn Urine Cocaine Screen U Marijuana (THC) Screen Ethyl Alcohol COVID-19 (NIMESH) Negative COVID-19 [employer] See Note 11/22/21 11/22/21 11/24/21 21:59 22:51 07:56 WBC RBC Hgb Hct MCV MCH MCHC RDW Plt Count MPV Immature Gran % (Auto) Neut % (Auto) Lymph % (Auto) [place] % (Auto) Eos % (Auto) Baso % (Auto) Lymph # (Auto) [place] # (Auto) Eos # (Auto) Baso # (Auto) Abs Immat Gran (auto) Absolute Neuts (auto) Absolute Nucleated RBC Nucleated RBC % (auto) Sodium Potassium Chloride Carbon Dioxide Anion Gap BUN Creatinine Estim Creat Clear Calc Estimated GFR Random Glucose Estimat Average Glucose 120 Hemoglobin A1c % 5.8 Calcium Magnesium Total Bilirubin Direct Bilirubin AST ALT Alkaline Phosphatase Total Protein Albumin Triglycerides Cholesterol LDL Cholesterol, Calc HDL Cholesterol Vitamin B12 Folate TSH Free T4 Urine Opiates Screen Not Detected Urine Fentanyl Screen Not Detected Ur Barbiturates Screen Not Detected Ur Phencyclidine Scrn Not Detected Ur Amphetamines Screen Not Detected U Benzodiazepines Scrn Not Detected Urine Cocaine Screen Not Detected U Marijuana (THC) Screen Not Detected Ethyl Alcohol < 10 COVID-19 (NIMESH) COVID-[employer] 11/24/21 11/24/21 07:56 07:56 WBC RBC Hgb Hct MCV MCH MCHC RDW Plt Count MPV Immature Gran % (Auto) Neut % (Auto) Lymph % (Auto) [place] % (Auto) Eos % (Auto) Baso % (Auto) Lymph # (Auto) [place] # (Auto) Eos # (Auto) Baso # (Auto) Abs Immat Gran (auto) Absolute Neuts (auto) Absolute Nucleated RBC Nucleated RBC % (auto) Sodium Potassium Chloride Carbon Dioxide Anion Gap BUN Creatinine Estim Creat Clear Calc Estimated GFR Random Glucose Estimat Average Glucose Hemoglobin A1c % Calcium Magnesium 2.1 Total Bilirubin Direct Bilirubin AST ALT Alkaline Phosphatase Total Protein Albumin Triglycerides 164 Cholesterol 196 LDL Cholesterol, Calc 128 HDL Cholesterol 36 D Vitamin B12 227 Folate 4.9 TSH 2.03 Free T4 1.03 Urine Opiates Screen Urine Fentanyl Screen Ur Barbiturates Screen Ur Phencyclidine Scrn Ur Amphetamines Screen U Benzodiazepines Scrn Urine Cocaine Screen U Marijuana (THC) Screen Ethyl Alcohol COVID-19 (NIMESH) COVID-19 Clin Com DS: Summary Hospital Course Hospital Course: Joe is a 41 yo male who carries a dx of MDD recurrent, PTSD, r/o BPD. He has chronic back pain, hx of low testosterone and reports he is currently in ?withdrawal? as he was getting testosterone inj but has not had them x 1 month. He presented to [facility] 11/22/21 after his cbelsjx-uy-lor called 911 due to pt having an altercation with his father, in which he made homicidal threats towards his father. Pt is supposed to move back to [place] with his father in a week, however pt fought with his father over his heavy alcohol use. Has financial stress. Utox negative, no alcohol or substance abuse. Upon admission, pt reports he has been non-adherent with his psych medications and has a hx of going ?cold turkey? due to multiple side effects, sensitive to medication. He takes gabapentin 100 mg once a day in the morning. He reports chronic back and neck pain, leading to poor sleep. Mood is ?up and down,? pt believes this has to do with testosterone withdrawal, used to get an injection every week from his urologist but ran out over a month ago. Since then he has noticed worsening irritability and ?frustration.? Currently denies SI/SIB/HI or assaultive ideation. Pt has a hx of IPLOC in [place] for SI and a suicidal g esture in 1999 and at [facility] for SI and agitation in 2016. He asked to be restarted on cymbalta for depression, anxiety, and chronic pain and clonidine as needed for anxiety and agitation. Pt put in a 3 day notice for discharge on 11/26/21, which is being honored, as he is not presenting with imminent safety concerns and he has been minimally engaged in therapeutic services while on the unit. He has been tolerating cymbalta and plans to continue this in the outpatient setting. Will return to living with his sister, considers this safe housing. He wants to obtain outpatient psych services in [place] and plans to move there in one month. Time spent discussing smoking cessation with patient: 3 to 10 minutes Status at Discharge Cognitive/behavioral status at discharge: Stable, denies mood or behavioral concerns. Functional status at discharge: independent ambulation Overall status at discharge: patient is progressing back to baseline Time Spent with Patient Time attestation: Total time spent providing and/or coordinating discharge services: Time spent: Less than 30 minutes Discharge Plan Discharge Patient Disposition: Home, Self-Care Discharge Diagnosis: Generalized Anxiety Disorder Referrals: Psychiatric Med Management: Daphnie Wells [Other] - 12/15/21 9:40 am (This is a Telehealth appointment ) Anu Zaragoza MD [Primary Care Provider] - 1 Week (OFFICE CLOSED TODAY MONDAY. PT. WAS TOLD TO CALL FOR FOLLOW-UP APPOINTMENT.) Discharge Medications: New clonidine HCl 0.1 mg Tablet 0.1 mg PO TID PRN (Reason: agitation, hyperarousal) Qty: 30 0RF Protocol: Hold for SBP< HOLD for SBP < : 90 duloxetine 20 mg Capsule,Delayed Release(Dr/Ec) 20 mg PO DAILY Qty: 30 2RF Continued gabapentin 100 mg capsule 1 cap PO TID 0RF Discharge Orders: Discharge Order (Routine); Ordered 11/26/21 Ordered By: Tabitha Sanon Diet: regular diet Activity on Discharge: As tolerated Stand Alone Forms: Patient Portal Discharge page, Community Support Care Plan Goals: Continue meds as prescribed and tolerated, follow up with PCP and outpatient therapy referrals. Health Concerns: Chronic pain management. Plan of Treatment: Continue medication management and psychotherapy. Assessment: Patient denies suicidal ideation, self harm urges, homicidal ideation or assaul tive ideation. No imminent safety concerns. Patient Instructions: Anxiety (ED) Discharge Date/Time: 11/26/21 13:25
== END 2021-11-26 13:25 | disposition home or self-care (01) | DRG 751 ==
LOC: HO.ED 11-23 12:29 → HO.PM5 11-23 16:17
PROVIDERS: Clinical Nurse Specialist Psychiatric/Mental Health, Adult; Emergency Medicine; Admitting Provider Psychiatry & Neurology Psychiatry; Emergency Provider Student in an Organized Health Care Education/Training Program; PCP Internal Medicine; Visit Provider Psychiatry & Neurology Psychiatry
DX: F33.1 Major depressive disorder, recurrent, moderate (principal); F41.9 Anxiety disorder, unspecified; F43.10 Post-traumatic stress disorder, unspecified; M06.9 Rheumatoid arthritis, unspecified; Z20.822 Contact with and (suspected) exposure to COVID-19; Z91.040 Latex allergy status; Z88.5 Allergy status to narcotic agent; Z79.899 Other long term (current) drug therapy
CPT/HCPCS: 36415; 80048; 80061; 80076; 80307; 82077; 82607; 82746; 83036; 83735; 84439; 84443; 85025; 87635; 99285

== ENCOUNTER → 2022-05-09 08:41 | Outpatient (BNVA) | payer MEDICAID, SELFPAY | PROVIDERS: PCP Internal Medicine; Visit Provider Internal Medicine | DX: M79.18 Myalgia, other site (principal); M47.812 Spondylosis without myelopathy or radiculopathy, cervical region; M47.816 Spondylosis without myelopathy or radiculopathy, lumbar region | CPT/HCPCS: 20553; 99212 ==

== ENCOUNTER 2022-07-13 06:22 | Outpatient (REF) | payer MEDICAID, SELFPAY ==
--- NOTE | ~2022-07-13 | FL_ITS ---
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 COMPARISON: 03/17/2021 TECHNIQUE: Fluoroscopy Supervised By: Natali Lee. Fluoroscopy Time: 0.1 minutes. Cumulative Dose: 5.91 mGy. DAP: 0.964 Gycm2. Images: 1. FINDINGS: 2 AP images demonstrate arrows pointed to a disc space within the lumbar spine. I cannot determine what level this is due to not including S1 or T12 on the image. FL/FL guidance in treatment room IMPRESSION: Intraoperative fluoroscopy provided for pain management procedure.
== END 2022-07-13 06:23 | disposition home or self-care (01) ==
LOC: CF 06:22
PROVIDERS: Visit Provider Internal Medicine
DX: M47.816 Spondylosis without myelopathy or radiculopathy, lumbar region (principal)
CPT/HCPCS: 64493

== ENCOUNTER 2022-08-10 11:46 | Day surgery (SDC) | payer MEDICAID, SELFPAY ==
--- NOTE | ~2022-08-10 | FL_ITS ---
EXAMINATION: XR FLUOROSCOPY WITH IMAGES CLINICAL INFORMATION: Back pain. Pain management procedure, lumbar L2 L2 MBB Sprint. COMPARISON: Fluoroscopic spot views 07/13/2022 TECHNIQUE: Fluoroscopy Supervised By: Dr. Rome Giron. Fluoroscopy Time: 0.1 minutes. Cumulative Dose: 7.67 mGy. DAP: 1.20 Gycm2. Images: 1. FINDINGS: Needle/electrode is seen with tip just below the mid right lumbar pedicle, L2 by history. FL/FL guidance in OR IMPRESSION: Fluoroscopy for pain management procedure.
[2022-08-10 12:05] VITALS: BMI 46.0
[2022-08-10 12:17] LABS: Glucose, Whole Blood 98 mg/dL (60-115)
[2022-08-10 13:00] VITALS: BP 143/90; PULSE 80; RESP 20; TEMP 36.7; O2SAT 96
[2022-08-10 13:16] VITALS: RESP 20
--- NOTE | 2022-08-11 11:08 | MHC.SHP ---
Pre-Procedural Eval Section A Date of Service: 08/10/22 The patient is an INPATIENT: No Changes since office visit: Yes Patient answered all questions The History & Physical has been completed within 30 days and I have reviewed it.: No Section B Chief Complaint: Spondylosis without myelopathy or radiculopathy Relevant Social History: None Present Medications: see Short Stay Collaborative assessment Medical History: No relevant PMH History of Previous Operations: No relevant previous surgery Allergies: Allergies Allergy/AdvReac Type Severity Reaction Status Date / Time latex Allergy unknown Verified 07/13/22 11:29 peanut Allergy Unknown Verified 08/10/22 12:26 amoxicillin AdvReac Unknown Verified 08/10/22 12:26 hydrocodone AdvReac unknown Verified 07/13/22 11:29 oxycodone AdvReac Unknown Verified 08/10/22 12:26 Review of Systems Sugical H&P ROS: Negative: Constitution, Cardiovascular and Respiratory Exam Surgical H&P Exam: Normal: HEENT, Normal: Heart and Normal: Lungs Plan Diagnosis/Plan: Unchanged I have reviewed the history and physical and performed a pertinent physical examination on my patient. No changes have occurred unless specified. Time Spent With Patient Time: Total time managing care of this patient today ____ minutes.
--- NOTE | 2022-08-11 11:09 | P.BOP_ITS ---
Brief Operative Note Date of Service: 08/11/22 Pre-op diagnosis: Lumbar spondylosis, chronic pain syndrome Post-op diagnosis: same Procedure: Right L2 medial branch temporary peripheral nerve stimulator placement Implants: SPR temporary PNS system Surgeon: Rome Giron MD Anesthesia: local Was an Bench Worker Helper used for this Procedure?: No Estimated blood loss (mL): 1 Pathology: none sent Condition: stable Disposition: same day
--- NOTE | 2022-08-11 11:12 | W.PM.OPN ---
Operative Note Operative Note Date of Service: 08/10/22 Narrative: Lumbar Medial Branch Nerve Stimulation Lead Placement, SPR (Sprint) System, Right L2 Medial Branch Nerve ? After the risks, benefits and alternatives were discussed with the patient and informed consent was obtained, patient was placed in the prone position and padded to foster comfort. The skin overlying the lumbosacral spine was prepped and draped in sterile fashion. Fluoroscopy was used to identify the spinous process and lamina in the center of the patient?s region of pain. After identifying and marking the intended target along the course of the medial branch nerve, the skin around the planned entry point and the subcutaneous tissues were injected with lidocaine 1%. An introducer needle and stimulating probe were assembled, inserted and advanced along the intended course of the medial branch nerve as it traverses the lamina medial and inferior to the zygapophyseal joint, taking care to maintain the proper depth of insertion as the introducer is advanced under fluoroscopic guidance. The introducer needle was delivered to a location in proximity to the nerve. Multiple stimulation parameters were used to deliver stimulation to the target medial branch nerve in concert with stimulating at multiple positions around the nerve. Nerve target acquisition was confirmed noting generation of paresthesias in the paravertebral regions corresponding to the level being stimulated. Various electrical parameter combinations were tested, and the lead location was adjusted (physically relocated) until the patient indicated paresthesia/muscle tension overlapping the distribution of the patient?s typical region of pain. The stimulating probe was removed from the introducer and a percutaneous lead was guided through the needle and delivered to a location in similar proximity to the nerve. Final location was verified with electrical stimulation and documented with fluoroscopy. The introducer needle was removed, and the exposed end of the percutaneous lead was attached to an external stimulator unit. Various electrical parameter combinations were again tested until the patient indicated paresthesia or muscle tension overlapping the distribution of the patient?s typical region of pain. After confirming that lead impedance was in the normal range, the external unit was detached, the needle was removed, and the lead was anchored at the skin. The lead was threaded into the connector block and electrical continuity and desired patient response was confirmed. The connector block was attached to the external stimulator unit. The site was covered with a sterile occlusive dressing. The patient was observed for stability of vital signs and comfort.
== END 2022-08-10 13:35 | disposition home or self-care (01) ==
PROVIDERS: PCP Hospitalist; Visit Provider Internal Medicine
DX: M47.816 Spondylosis without myelopathy or radiculopathy, lumbar region (principal); G89.29 Other chronic pain; M54.50 Low back pain, unspecified; M06.9 Rheumatoid arthritis, unspecified; I10 Essential (primary) hypertension; J45.909 Unspecified asthma, uncomplicated; Z88.8 Allergy status to other drugs, medicaments and biological substances; Z91.040 Latex allergy status
CPT/HCPCS: 64555; 82947; C1778; J1100

== ENCOUNTER → 2022-10-07 11:08 | Outpatient (BNVA) | payer MEDICAID, SELFPAY | PROVIDERS: PCP Hospitalist; Visit Provider Internal Medicine | DX: M54.50 Low back pain, unspecified (principal); G89.29 Other chronic pain; M47.812 Spondylosis without myelopathy or radiculopathy, cervical region; M47.814 Spondylosis without myelopathy or radiculopathy, thoracic region; Z45.49 Encounter for adjustment and management of other implanted nervous system device | CPT/HCPCS: 99212 ==

== ENCOUNTER → 2022-10-21 09:50 | Outpatient (BNVA) | payer MEDICAID, SELFPAY | PROVIDERS: PCP Hospitalist; Visit Provider Internal Medicine | DX: G89.29 Other chronic pain (principal); M54.50 Low back pain, unspecified; M79.18 Myalgia, other site; M47.812 Spondylosis without myelopathy or radiculopathy, cervical region; M53.3 Sacrococcygeal disorders, not elsewhere classified | CPT/HCPCS: 20553; 99212 ==

== ENCOUNTER → 2022-12-02 09:11 | Outpatient (BNVA) | payer MEDICAID, SELFPAY | PROVIDERS: PCP Hospitalist; Visit Provider Internal Medicine | DX: M79.18 Myalgia, other site (principal); M54.50 Low back pain, unspecified; G89.29 Other chronic pain | CPT/HCPCS: 20553; 99212; J2795 ==

== ENCOUNTER → 2023-01-06 09:56 | Outpatient (BNVA) | payer MEDICAID, SELFPAY | PROVIDERS: PCP Hospitalist; Visit Provider Internal Medicine | DX: M79.18 Myalgia, other site (principal); M54.50 Low back pain, unspecified; G89.29 Other chronic pain | CPT/HCPCS: 20553; J2795 ==

== ENCOUNTER → 2023-02-10 08:56 | Outpatient (BNVA) | payer MEDICAID, SELFPAY | PROVIDERS: PCP Hospitalist; Visit Provider Internal Medicine | DX: M79.18 Myalgia, other site (principal) | CPT/HCPCS: 20553 ==

== ENCOUNTER 2023-04-14 16:11 | Emergency (ER) | payer MEDICAID, SELFPAY ==
--- NOTE | ~2023-04-14 | XR_ITS ---
EXAMINATION: XR CHEST CLINICAL INFORMATION: Pain COMPARISON: None available. TECHNIQUE: 2 views of the chest were obtained. FINDINGS: Cardiac size within normal limits. No definite hilar mass. There is no edema or consolidation. No major zone of atelectasis. Lung volumes are maintained. No significant pleural fluid or pneumothorax. No suspicious focal bony lesion. There are osteophytes in the spine XR/XR chest 2V IMPRESSION: No acute chest disease
--- NOTE | 2023-04-14 16:37 | ECG_ITS ---
Test Reason : CX PAIN Blood Pressure : / mmHG Vent. Rate : 096 BPM Atrial Rate : 096 BPM P-R Int : 150 ms QRS Dur : 100 ms QT Int : 370 ms P-R-T Axes : 049 008 007 degrees QTc Int : 467 ms Normal sinus rhythm Inferior infarct , age undetermined Abnormal ECG No previous ECGs available Referred By: Generic ED Physician Electronically Signed By:ONESIMO STAFFORD
[2023-04-14 16:46] VITALS: BP 153/97; PULSE 93; RESP 20; TEMP 36.8; O2SAT 100; BMI 46.8
--- NOTE | 2023-04-14 16:52 | ED.GENADULT ---
HPI - General Adult General Chief complaint: Chest Pain Stated complaint: chest pain and back pain Related Data Home Medications Medication Instructions Recorded Confirmed albuterol 90 mcg/actuation aerosol 90 mcg inhalation 08/10/22 01/06/23 inhaler cholecalciferol (vitamin D3) 50 50 mcg PO DAILY 08/10/22 01/06/23 mcg (2,000 unit) capsule (Vitamin D3) tadalafil 20 mg tablet 20 mg PO DAILY PRN 10/21/22 01/06/23 metformin 1,000 mg PO 1XD 12/02/22 01/06/23 testosterone cypionate 200 mg/mL 200 mg IM QWEEK 01/06/23 01/06/23 intramuscular oil Allergies Allergy/AdvReac Type Severity Reaction Status Date / Time latex Allergy unknown Verified 02/10/23 09:01 peanut Allergy Unknown Verified 02/10/23 09:01 Penicillins [PCN] Allergy Hives Verified 04/15/23 08:08 amoxicillin AdvReac Unknown Verified 02/10/23 09:01 hydrocodone AdvReac unknown Verified 02/10/23 09:01 oxycodone AdvReac Unknown Verified 02/10/23 09:01 [facility] Past Medical History Medical History Post traumatic stress disorder (PTSD) MDD (major depressive disorder), recurrent episode, moderate Anxiety Spondylosis of cervical spine Cholecystectomy planned Obesity Depression DJD (degenerative joint disease), thoracic Back pain Arthritis, rheumatoid Asthma Hypertension Surgical History H/O arthroscopy of shoulder Social History Social History Household Members: Family Housing: House Do you presently have visiting nurse or other home services: No Patient Tobacco Use Status: Never used Tobacco e-Cigarette/Vaping Use: Never Used Advance Directives: No service: No Sexual orientation: Straight/Heterosexual Physical Exam ED Vital Signs: BMI result Body Mass Index 46.8 Medical Decision Making Medical Decision Making MDM Narrative: 42-year-old male presents for evaluation of chest pain. Symptoms started around noon. He reports his pain radiates to both shoulders. Plan for EKG, labs. Lab Data 04/14/23 17:22 04/14/23 17:21 Labs: Lab Results 04/14/23 04/14/23 Range/Units 17:21 17:22 WBC 11.7 H (4.8-10.8) X10*3/uL RBC 7.16 H D (4.60-5.80) X10*6/uL Hgb 17.9 D (14.0-18.0) g/dl Hct 54.9 H D (42.0-52.0) % MCV 76.7 L (80.0-98.0) fL MCH 25.0 L (27.0-33.0) pg MCHC 32.6 (31.0-36.0) g/dl RDW 17.2 H (11.0-16.0) % Plt Count 268 (160-400) X10*3/uL MPV 9.8 (9.4-12.4) fL Immature Gran % (Auto) 0.3 (0.0-0.4) % Neut % (Auto) 75.1 H (45-73) % Lymph % (Auto) 18.5 L (20-40) % [place] % (Auto) 5.0 (2-11) % Eos % (Auto) 0.8 (0-4) % Baso % (Auto) 0.3 (0-2) % Lymph # (Auto) 2.2 (1.2-4.9) X10*3/uL [place] # (Auto) 0.6 (0.1-1.2) X10*3/uL Eos # (Auto) 0.1 (0.0-0.4) X10*3/uL Baso # (Auto) 0.0 (0.0-0.2) X10*3/uL Abs Immat Gran (auto) 0.04 H (0.00-0.03) X10*3/uL Absolute Neuts (auto) 8.8 H (2.0-8.3) x10*3/uL Absolute Nucleated RBC 0.000 (0.0-0.012) X10*3/uL Nucleated RBC % (auto) 0.0 (0.0-0.2) /100WBC PT 12.1 (11.1-13.3) SEC INR 1.0 (0.9-1.1) APTT 34.2 (26.0-36.4) SEC Sodium 141 (135-145) mmol/L Potassium 3.6 (3.3-5.1) mmol/L Chloride 106 (96-108) mmol/L Carbon Dioxide 25 (22-29) mmol/L Anion Gap 14 (12-20) BUN 9 (9-16) mg/dL Creatinine 1.03 (0.5-1.4) mg/dL Estim Creat Clear Calc 143.0 Estimated GFR > 60 Random Glucose 91 (60-115) mg/dL Calcium 10.2 (8.4-10.2) mg/dL Total Bilirubin 0.8 (0.0-1.0) mg/dL AST 24 (5-37) U/L ALT 35 (0-40) U/L Alkaline Phosphatase 56 (39-117) U/L Troponin I High Sens < 2.7 (<3.5-35.0) ng/L Total Protein 7.7 (6.5-8.0) g/dL Albumin 4.9 (3.5-5.0) g/dL Lipase 20 (8-78) U/L COVID-19 (NIMESH) Negative (Negative) COVID-19 Clin Com See Note Discharge Plan Discharge Clinical Impression: Chest pain Patient Disposition: Elopement Prescriptions: No Action albuterol 90 mcg/actuation Aerosol 90 mcg INHALATION cholecalciferol (vitamin D3) [Vitamin D3] 50 mcg (2,000 unit) Capsule 50 mcg PO DAILY metformin 1,000 mg PO 1XD tadalafil 20 mg tablet 20 mg PO DAILY PRN testosterone cypionate 200 mg/mL oil 200 mg IM QWEEK Discharge Date/Time: 04/14/23 22:27
[2023-04-14 17:25] LABS: MANUAL DIFF FLAG NO
[2023-04-14 17:29] LABS: Basophils Percent Auto 0.3 % (0-2); Eosinophils Absolute Auto 0.1 X10*3/uL (0.0-0.4); Eosinophils Percent Auto 0.8 % (0-4); Hematocrit 54.9 % (42.0-52.0); Hemoglobin 17.9 g/dl (14.0-18.0); Imm Gran Abs Auto 0.04 X10*3/uL (0.00-0.03); Imm Gran Pct Auto 0.3 % (0.0-0.4); Lymphocytes Absolute Auto 2.2 X10*3/uL (1.2-4.9); Lymphocytes Percent Auto 18.5 % (20-40); Mean Corpuscular HGB Conc 32.6 g/dl (31.0-36.0); Mean Corpuscular Volume 76.7 fL (80.0-98.0); Mean Platelet Volume 9.8 fL (9.4-12.4); Monocytes Absolute Auto 0.6 X10*3/uL (0.1-1.2); Neutrophils Absolute Auto 8.8 x10*3/uL (2.0-8.3); Neutrophils Percent Auto 75.1 % (45-73); Platelet Count 268 X10*3/uL (160-400); Red Blood Count 7.16 X10*6/uL (4.60-5.80); Red Cell Distribution Width 17.2 % (11.0-16.0); White Blood Count 11.7 X10*3/uL (4.8-10.8)
[2023-04-14 17:38] LABS: Prothrombin Time 12.1 SEC (11.1-13.3)
[2023-04-14 17:41] LABS: Partial Thromboplastin Time 34.2 SEC (26.0-36.4)
[2023-04-14 17:44] LABS: COVID-19 Test Negative (Negative); IDNOW Serial# 08D9AD1C
[2023-04-14 17:46] LABS: Alanine Aminotransferase 35 U/L (0-40); Albumin Level 4.9 g/dL (3.5-5.0); Alkaline Phosphatase 56 U/L (39-117); Anion Gap 14 (12-20); Aspartate Amino Transferase 24 U/L (5-37); Bilirubin Total 0.8 mg/dL (0.0-1.0); Blood Urea Nitrogen 9 mg/dL (9-16); Calcium 10.2 mg/dL (8.4-10.2); Carbon Dioxide 25 mmol/L (22-29); Chloride 106 mmol/L (96-108); Estimated Glomerular Filt Rate > 60; Glucose Random 91 mg/dL (60-115); Lipase 20 U/L (8-78); Potassium 3.6 mmol/L (3.3-5.1); Sodium 141 mmol/L (135-145); Total Protein 7.7 g/dL (6.5-8.0)
[2023-04-14 17:54] LABS: Troponin-I High Sensitivity < 2.7 ng/L (<3.5-35.0)
== END 2023-04-14 22:27 | disposition left against medical advice (07) ==
PROVIDERS: Physician Assistant; Emergency Provider Emergency Medicine
DX: R07.9 Chest pain, unspecified (principal); I10 Essential (primary) hypertension; Z20.822 Contact with and (suspected) exposure to COVID-19; Z79.899 Other long term (current) drug therapy; Z79.84 Long term (current) use of oral hypoglycemic drugs
CPT/HCPCS: 36415; 71046; 80053; 83690; 84484; 85025; 85610; 85730; 87635; 93005; 99283

== ENCOUNTER 2023-04-15 08:01 | Emergency (ER) | payer MEDICAID, SELFPAY ==
--- NOTE | ~2023-04-15 | XR_ITS ---
EXAMINATION: XR CHEST CLINICAL INFORMATION: Chest pain COMPARISON: Chest 04/14/2023 TECHNIQUE: 2 views of the chest were obtained. FINDINGS: No significant abnormality is noted involving the heart, lungs, mediastinum, bony thorax or soft tissues. XR/XR chest 2V IMPRESSION: Unremarkable chest exam
--- NOTE | 2023-04-15 08:03 | ECG_ITS ---
Test Reason : CP Blood Pressure : / mmHG Vent. Rate : 082 BPM Atrial Rate : 082 BPM P-R Int : 160 ms QRS Dur : 100 ms QT Int : 378 ms P-R-T Axes : 024 -04 005 degrees QTc Int : 441 ms Normal sinus rhythm Inferior infarct (cited on or before 14-APR-2023) Cannot rule out Anterior infarct , age undetermined Abnormal ECG When compared with ECG of 14-APR-2023 17:01, No significant change was found Referred By: Generic ED Physician Electronically Signed By:ONESIMO STAFFORD
[2023-04-15 08:08] VITALS: BP 173/83; PULSE 92; RESP 19; TEMP 36.6; O2SAT 98; BMI 46.6
[2023-04-15 08:37] LABS: MANUAL DIFF FLAG NO
[2023-04-15 08:43] LABS: Basophils Percent Auto 0.4 % (0-2); Eosinophils Absolute Auto 0.1 X10*3/uL (0.0-0.4); Eosinophils Percent Auto 1.5 % (0-4); Hemoglobin 17.4 g/dl (14.0-18.0); Imm Gran Abs Auto 0.01 X10*3/uL (0.00-0.03); Imm Gran Pct Auto 0.1 % (0.0-0.4); Lymphocytes Absolute Auto 1.7 X10*3/uL (1.2-4.9); Mean Corpuscular HGB Conc 32.8 g/dl (31.0-36.0); Mean Corpuscular Hemoglobin 25.3 pg (27.0-33.0); Mean Corpuscular Volume 76.9 fL (80.0-98.0); Mean Platelet Volume 9.9 fL (9.4-12.4); Monocytes Absolute Auto 0.4 X10*3/uL (0.1-1.2); Monocytes Percent Auto 5.4 % (2-11); Neutrophils Absolute Auto 5.6 x10*3/uL (2.0-8.3); Neutrophils Percent Auto 71.6 % (45-73); Platelet Count 249 X10*3/uL (160-400); Red Blood Count 6.89 X10*6/uL (4.60-5.80); Red Cell Distribution Width 17.2 % (11.0-16.0); White Blood Count 7.8 X10*3/uL (4.8-10.8)
[2023-04-15 08:58] LABS: Anion Gap 11 (12-20); Blood Urea Nitrogen 10 mg/dL (9-16); Calcium 9.7 mg/dL (8.4-10.2); Carbon Dioxide 26 mmol/L (22-29); Chloride 106 mmol/L (96-108); Creatinine Clr Calc Pharmacy 156.2; Estimated Glomerular Filt Rate > 60; Glucose Random 102 mg/dL (60-115); Potassium 4.2 mmol/L (3.3-5.1); Sodium 139 mmol/L (135-145)
[2023-04-15 09:09] LABS: Troponin-I High Sensitivity < 2.7 ng/L (<3.5-35.0)
--- NOTE | 2023-04-15 09:12 | ED_ITS ---
HPI - Chest Pain General Chief Complaint: Chest Pain Stated Complaint: chest pain Time Seen by Provider: 04/15/23 09:11 Source: patient Mode of arrival: ambulatory Limitations: no limitations History of Present Illness HPI narrative: 42 yo male with PMHx of asthma, arthritis, chronic back pain, DJD, HTN, DM, obesity presenting to the ED with chest pain x2 days. Reports the sensation of having a heart attack while in a parking lot yesterday, began having sudden onset chest pain/epigastric abdominal pain, tingling down his upper and lower extremities, and became SOB prompting him to come to the ED yesterday > left prior to being seen. Returns today with continued and worening symptoms. Patient recently saw his PCP who old him his RBC's were high and that he is at risk for clotting/heart attacks/ strokes, admits this made him anxious. Denies headache, fever, chills, N/V, hemoptysis, hematemesis, melana, leg pain/ swelling. Related Data Home Medications Medication Instructions Recorded Confirmed albuterol 90 mcg/actuation aerosol 90 mcg inhalation 08/10/22 01/06/23 inhaler cholecalciferol (vitamin D3) 50 50 mcg PO DAILY 08/10/22 01/06/23 mcg (2,000 unit) capsule (Vitamin D3) tadalafil 20 mg tablet 20 mg PO DAILY PRN 10/21/22 01/06/23 metformin 1,000 mg PO 1XD 12/02/22 01/06/23 testosterone cypionate 200 mg/mL 200 mg IM QWEEK 01/06/23 01/06/23 intramuscular oil Allergies Allergy/AdvReac Type Severity Reaction Status Date / Time latex Allergy unknown Verified 02/10/23 09:01 peanut Allergy Unknown Verified 02/10/23 09:01 Penicillins [PCN] Allergy Hives Verified 04/15/23 08:08 amoxicillin AdvReac Unknown Verified 02/10/23 09:01 hydrocodone AdvReac unknown Verified 02/10/23 09:01 oxycodone AdvReac Unknown Verified 02/10/23 09:01 Review of Systems 2 Review of Systems: Constitutional: No fever, No chills, No fatigue, No malaise ENT/Mouth: No ear pain, No hearing loss,? No nasal congestion, No sinus pain, No rhinorrhea Eyes: No eye pain, No swelling, No redness, No vision changes, No foreign body, No discharge Cardio: + chest pain, + palpitations, No dyspnea on exertion, No orthopnea, No edema Respiratory: + SOB, No cough, No sputum, No wheezing, No dyspnea, No hemoptysis GI: No nausea, No vomiting, No hematemesis, No abdominal pain, No diarrhea, No constipation : No irregular bleeding, No dysuria, No frequency, No urgency, No hesitancy, No hematuria MSK: No back pain, No neck pain, No joint pain, No myalgias Skin: No skin lesions, No rashes Neuro: No weakness, No numbness, + paresthesias, No LOC, No dizziness, No headache Psych: + anxiety/panic, No depression, No SI/HI, No AH/VH Yes all other systems are reviewed and are negative [facility] Past Medical History Attestation statement: The following information was validated with the patient. Source: old records reviewed and nursing notes reviewed Medical History Post traumatic stress disorder (PTSD) MDD (major depressive disorder), recurrent episode, moderate Anxiety Spondylosis of cervical spine Cholecystectomy planned Obesity Depression DJD (degenerative joint disease), thoracic Back pain Arthritis, rheumatoid Asthma Hypertension Surgical History H/O arthroscopy of shoulder Social History Social History Household Members: Family Housing: House Do you presently have visiting nurse or other home services: No Patient Tobacco Use Status: Never used Tobacco e-Cigarette/Vaping Use: Never Used Advance Directives: No service: No Sexual orientation: Straight/Heterosexual Physical Exam 2 Vital Signs: Vital Signs: Last Vital Signs Temp 98 F 04/15/23 08:08 Pulse 92 04/15/23 08:08 Resp 19 04/15/23 08:08 BP 173/83 H 04/15/23 08:08 Pulse Ox 98 04/15/23 08:08 O2 Del Method Room Air 04/15/23 08:08 BMI result Body Mass Index 46.6 General: Nontoxic appearing. Anxious. Skin: Warm and dry. No rashes or lesions. Head: Normocephalic, atraumatic. EENT: Conjunctiva clear. Sclera is anicteric. PERRLA. EOM intact. Moist mucous membranes. Neck: Supple without LAD. Normal ROM. Trachea midline.? Cardiac: Chest wall symmetric. Regular rate and rhythm. S1 and S1 appreciated. No MRG. No JVD. Lungs: CTA bilaterally. No rales, rhonchi, or wheezes. Normal respiratory effort without accessory muscle use. Abdomen: No visible lesions or scars. Soft, non-tender, non-distended. No rebound tenderness or guarding. Normoactive BS x4. Ext: Upper and lower extremities atraumatic, without tenderness, deformity, swelling or erythema. Full ROM throughout. Strength 5/5 throughout. Capillary refill <2 seconds in all extremities. Pulses 2+ equal and bilateral. No edema, cyanosis, or clubbing. Negative homans sign. Neuro: Alert and oriented x3. Normal speech. CN 2-12 grossly intact. Strength 5/5 intact throughout.?Neurovascular intact distally.Ambulating with steady gait. Psych: Appropriate mood and affect. Responds appropriately to questions.? Course Course Course Narrative: 949-- > Trop negative (x2 when compared to trop yesterday) > EKG showing ?inferior infarct however negative trop and unchanged EKG from 04/14/23 > unlikely ACS > CBC showing midly elevated RBC's however decreased from yesterday. No leukocytosis. > Chemistry without acute electrolyte abnormalities requiring intervention. > CXR without acute intrathoracic pathology 1000- Discussed negative workup patient and that ACS is unlikely > patient immediately more calm upon hearing results. States he worked himself up over the information he received from his doctor. Offered to give patient ativan for anxiety however patient cannot get a ride home > states he is ok without the ativan and would like to be discharged home to make his zoom appointment with his PCP. Patient's vitals are stable. Answered all questions. Patient agreeable with disposition. Stable for discharge. Medical Decision Making Medical Decision Making [facility] Narrative: 42 yo male with PMHx of asthma, arthritis, chronic back pain, DJD, HTN, DM, obesity presenting to the ED with chest pain x2 days. Patient hypertensive to 173/83 secondary to nonmed compliance and anxiety, otherwise stable. Non diaphoretic. Anxious. Exam with RRR, lungs CTA bilaterally, negative karel's sign bilaterally. Clinical concern for anxiety vs ACS vs arrythmia vs electrolyte abnormalitiy. Unlikely dissection, pneumonia, pneumothorax, PE, pericarditis, pancreatitis, PUD. Plan: labs, trop, EKG, CXR Differential Diagnosis Differential Diagnoses: The differential diagnosis associated with the presentation includes Clinical concern for anxiety vs ACS vs arrythmia vs electrolyte abnormalitiy. Unlikely dissection, pneumonia, pneumothorax, PE, pericarditis, pancreatitis, PUD. Lab Data MDM Lab Attestation statement: I reviewed the patient's lab results. See above course narrative. 04/15/23 08:31 04/15/23 08:31 Labs: Lab Results 04/15/23 Range/Units 08:31 WBC 7.8 (4.8-10.8) X10*3/uL RBC 6.89 H (4.60-5.80) X10*6/uL Hgb 17.4 (14.0-18.0) g/dl Hct 53.0 H (42.0-52.0) % MCV 76.9 L (80.0-98.0) fL MCH 25.3 L (27.0-33.0) pg MCHC 32.8 (31.0-36.0) g/dl RDW 17.2 H (11.0-16.0) % Plt Count 249 (160-400) X10*3/uL MPV 9.9 (9.4-12.4) fL Immature Gran % (Auto) 0.1 (0.0-0.4) % Neut % (Auto) 71.6 (45-73) % Lymph % (Auto) 21.0 (20-40) % [place] % (Auto) 5.4 (2-11) % Eos % (Auto) 1.5 (0-4) % Baso % (Auto) 0.4 (0-2) % Lymph # (Auto) 1.7 (1.2-4.9) X10*3/uL [place] # (Auto) 0.4 (0.1-1.2) X10*3/uL Eos # (Auto) 0.1 (0.0-0.4) X10*3/uL Baso # (Auto) 0.0 (0.0-0.2) X10*3/uL Abs Immat Gran (auto) 0.01 (0.00-0.03) X10*3/uL Absolute Neuts (auto) 5.6 (2.0-8.3) x10*3/uL Absolute Nucleated RBC 0.000 (0.0-0.012) X10*3/uL Nucleated RBC % (auto) 0.0 (0.0-0.2) /100WBC Sodium 139 (135-145) mmol/L Potassium 4.2 (3.3-5.1) mmol/L Chloride 106 (96-108) mmol/L Carbon Dioxide 26 (22-29) mmol/L Anion Gap 11 L (12-20) BUN 10 (9-16) mg/dL Creatinine 0.94 (0.5-1.4) mg/dL Estim Creat Clear Calc 156.2 Estimated GFR > 60 Random Glucose 102 (60-115) mg/dL Calcium 9.7 (8.4-10.2) mg/dL Troponin I High Sens < 2.7 (<3.5-35.0) ng/L Independent Interpretation I performed an independent interpretation of an: EKG (Normal sinus rhythm with rate of 82 BPM, QT 100, inferior infarct unchanged when compared to EKG on 04/14) and Plain X-Ray Interpretation: CXR without infiltrates, agree with radiologist's interpretation Radiology Impression Discussion of test interpretation with radiology: I have reviewed the radiologist's reading. Radiologist Impression: XR chest 2V IMPRESSION: Unremarkable chest exam External Record Review External record reviewed: Inpatient record Chronic Conditions Patient?s care impacted by: Diabetes and Hypertension Core Measures AMI core measures followed: Yes Measure exclusions: not indicated Discharge Plan Discharge Clinical Impression: Anxiety, Chest pain Patient Disposition: Home, Self-Care Instructions: Anxiety (ED) Additional Instructions: Your labs today were reassuring. Your heart enzyme was negative yesterday and today. Your chest xray did not show any pathologic process. Your EKG was unremarkable. Based on your presentation and negative workup, this is likely related to anxiety. Please follow up with your primary care provider as needed for management. Return to the ED for worsening symptoms. Prescriptions: No Action albuterol 90 mcg/actuation Aerosol 90 mcg INHALATION cholecalciferol (vitamin D3) [Vitamin D3] 50 mcg (2,000 unit) Capsule 50 mcg PO DAILY metformin 1,000 mg PO 1XD tadalafil 20 mg tablet 20 mg PO DAILY PRN testosterone cypionate 200 mg/mL oil 200 mg IM QWEEK Referrals: Walt Pérez DO [Primary Care Provider] -
== END 2023-04-15 11:02 | disposition home or self-care (01) ==
PROVIDERS: Emergency Provider Emergency Medicine; PCP Hospitalist
DX: F41.9 Anxiety disorder, unspecified (principal); R07.9 Chest pain, unspecified; R06.02 Shortness of breath; E11.9 Type 2 diabetes mellitus without complications; I10 Essential (primary) hypertension; E66.9 Obesity, unspecified; Z68.42 Body mass index [BMI] 45.0-49.9, adult; Z79.84 Long term (current) use of oral hypoglycemic drugs; Z79.899 Other long term (current) drug therapy
CPT/HCPCS: 36415; 71046; 80048; 84484; 85025; 93005; 99283

== ENCOUNTER 2023-05-22 10:54 | Outpatient (REF) | payer MEDICAID, SELFPAY ==
[2023-05-22 11:21] LABS: MANUAL DIFF FLAG NO
[2023-05-22 11:47] LABS: Basophils Percent Auto 0.3 % (0-2); Eosinophils Absolute Auto 0.2 X10*3/uL (0.0-0.4); Eosinophils Percent Auto 2.2 % (0-4); Hematocrit 49.6 % (42.0-52.0); Imm Gran Abs Auto 0.03 X10*3/uL (0.00-0.03); Imm Gran Pct Auto 0.3 % (0.0-0.4); Lymphocytes Percent Auto 21.8 % (20-40); Mean Corpuscular HGB Conc 32.3 g/dl (31.0-36.0); Mean Corpuscular Hemoglobin 25.3 pg (27.0-33.0); Mean Corpuscular Volume 78.4 fL (80.0-98.0); Mean Platelet Volume 10.5 fL (9.4-12.4); Monocytes Absolute Auto 0.4 X10*3/uL (0.1-1.2); Monocytes Percent Auto 4.4 % (2-11); Neutrophils Absolute Auto 6.4 x10*3/uL (2.0-8.3); Platelet Count 277 X10*3/uL (160-400); Red Blood Count 6.33 X10*6/uL (4.60-5.80); Red Cell Distribution Width 17.1 % (11.0-16.0)
[2023-05-22 12:31] LABS: Estimated Average Glucose 111 mg/dL; Hemoglobin A1c % 5.5 % (<6.0)
[2023-05-22 12:56] LABS: Alanine Aminotransferase 28 U/L (0-40); Albumin Level 4.5 g/dL (3.5-5.0); Alkaline Phosphatase 59 U/L (39-117); Anion Gap 14 (12-20); Aspartate Amino Transferase 18 U/L (5-37); Bilirubin Total 0.5 mg/dL (0.0-1.0); Blood Urea Nitrogen 11 mg/dL (9-16); Calcium 9.3 mg/dL (8.4-10.2); Carbon Dioxide 24 mmol/L (22-29); Chloride 106 mmol/L (96-108); Cholesterol 197 mg/dL (<200); Estimated Glomerular Filt Rate > 60; Glucose Random 93 mg/dL (60-115); HDL Cholesterol 46 mg/dL (>40); LDL Cholesterol Calculated 131 mg/dL (<100); Potassium 4.1 mmol/L (3.3-5.1); Sodium 140 mmol/L (135-145); Total Protein 7.2 g/dL (6.5-8.0); Triglycerides 104 mg/dL (<150)
[2023-05-22 13:03] LABS: Thyroid Stimulating Hormone 1.46 uIU/mL (0.32-4.0); Vitamin D 25-OH Total 20.7 ng/mL (>30)
[2023-05-22 13:28] LABS: Creatinine Urine 65.61 mg/dL; Microalbumin Urine < 5.0 mg/L
[2023-05-23 15:48] LABS: Calcium (PTHI) 9.4 mg/dL (8.6-10.3); PTHI 63 pg/mL (16-77)
== END 2023-05-22 10:55 | disposition home or self-care (01) ==
LOC: HO.LAB 10:54
PROVIDERS: PCP Internal Medicine; Visit Provider Internal Medicine
DX: Z00.00 Encounter for general adult medical examination without abnormal findings (principal); H10.89 Other conjunctivitis; E83.52 Hypercalcemia; E78.00 Pure hypercholesterolemia, unspecified
CPT/HCPCS: 36415; 80053; 80061; 82043; 82306; 82570; 83036; 83970; 84443; 85025

== ENCOUNTER 2023-08-15 08:30 | Emergency (ER) | payer MEDICAID, SELFPAY ==
--- NOTE | ~2023-08-15 | XR_ITS ---
EXAMINATION: XR CHEST CLINICAL INFORMATION: SOB and cough COMPARISON: None available. TECHNIQUE: 2 views of the chest were obtained. FINDINGS: No significant abnormality is noted involving the heart, lungs, mediastinum, bony thorax or soft tissues. XR/XR chest 2V IMPRESSION: Unremarkable chest examination.
[2023-08-15 09:01] VITALS: BP 134/80; PULSE 91; RESP 15; TEMP 36.6; O2SAT 98; BMI 44.9
[2023-08-15 09:59] LABS: Influenza A PCR NEGATIVE (Negative); Influenza B PCR NEGATIVE (Negative); Resp Syncy Virus RNA Qual PCR NEGATIVE (Negative); SARS COV2 PCR INHOUSE POSITIVE (Negative)
--- NOTE | 2023-08-15 10:27 | ED.GENADULT ---
HPI - General Adult General Chief complaint: Ear Problems Stated complaint: Blockage R/L Ears Cold Symptoms Time Seen by Provider: 08/15/23 09:31 Source: patient, RN notes reviewed and old records reviewed Mode of arrival: ambulatory History of Present Illness HPI narrative: 43-year-old male with a past medical history of PTSD, anxiety, depression, asthma, HTN, presenting to the ED complaining of productive cough, congestion, SOB x few days, and bilateral ear blockage/decreased hearing x 1 month. Reports history of cerumen impaction. Denies known fever, chest pain, travel, sick contacts Related Data Home Medications Medication Instructions Recorded Confirmed albuterol 90 mcg/actuation aerosol 90 mcg inhalation 08/10/22 01/06/23 inhaler cholecalciferol (vitamin D3) 50 50 mcg PO DAILY 08/10/22 01/06/23 mcg (2,000 unit) capsule (Vitamin D3) tadalafil 20 mg tablet 20 mg PO DAILY PRN 10/21/22 01/06/23 metformin 1,000 mg PO 1XD 12/02/22 01/06/23 testosterone cypionate 200 mg/mL 200 mg IM QWEEK 01/06/23 01/06/23 intramuscular oil Previous Rx's Medication Instructions Recorded benzonatate 100 mg capsule 100 mg PO TID PRN cough #14 caps 08/15/23 fluticasone propionate 50 2 spray intranasal DAILY #16 grams 08/15/23 mcg/actuation nasal spray,suspension (Flonase Allergy Relief) Allergies Allergy/AdvReac Type Severity Reaction Status Date / Time latex Allergy unknown Verified 08/15/23 09:01 peanut Allergy Unknown Verified 08/15/23 09:01 Penicillins [PCN] Allergy Hives Verified 08/15/23 09:01 amoxicillin AdvReac Unknown Verified 08/15/23 09:01 hydrocodone AdvReac unknown Verified 08/15/23 09:01 oxycodone AdvReac Unknown Verified 08/15/23 09:01 Review of Systems Review of Systems: Constitutional: No Fever, No Chills ENT/Mouth:+ Ear Pain, + Nasal Congestion, No Sinus Pain, No Hoarseness, No sore throat,+Rhinorrhea, No Swallowing Difficulty Cardiovascular: No Chest Pain, + SOB Respiratory: +Cough, No Sputum, No Wheezing Gastrointestinal: No Nausea, No Vomiting, No Diarrhea, No Constipation, No Abdominal pain Musculoskeletal: No joint pain, No Myalgias, No Joint Swelling Skin: No Skin Lesions, No rash Neuro: No Weakness Yes all other systems are reviewed and are negative Constitutional: Constitutional: Reports as per [facility] Past Medical History Attestation statement: The following information was validated with the patient. Source: old records reviewed Onset Date is defined in the Problem List Problems that require an onset date and time if occurred within 24 hrs of arrival to the ED Aortic Dissection and Rupture; Neurologic impairment; Cardiopulmonary Arrest; Endotracheal Intubation; Insertion or Replacement of Mechanical Circulatory Assist Device Medical History Post traumatic stress disorder (PTSD) MDD (major depressive disorder), recurrent episode, moderate Anxiety Spondylosis of cervical spine Cholecystectomy planned Obesity Depression DJD (degenerative joint disease), thoracic Back pain Arthritis, rheumatoid Asthma Hypertension Surgical History H/O arthroscopy of shoulder Social History Social History Household Members: Family Housing: House Do you presently have visiting nurse or other home services: No Patient Tobacco Use Status: Never used Tobacco e-Cigarette/Vaping Use: Never Used Advance Directives: No service: No Sexual orientation: Straight/Heterosexual Physical Exam ED Vital Signs: Vital Signs - 24 hr 08/15/23 09:01 Temperature 98 F Pulse Rate 91 Respiratory Rate 15 Blood Pressure 134/80 Pulse Oximetry 98 BMI result Body Mass Index 44.9 Const General: cooperative, healthy appearing and no acute distress Orientation/consciousness: patient oriented x3 Limitations: no limitations HENMT Head: Yes normal to inspection and Yes atraumatic Ears: hearing grossly normal bilaterally, TM's normal bilaterally and unable to visualize TM bilaterally (Due to cerumen impaction) General nose exam: Normal external nose present and Nasal discharge present Face and sinus: Yes normal facial exam Throat: Yes posterior oropharynx normal, Yes tonsils normal, Yes uvula midline, No peritonsillar mass and No uvular edema Eyes General: appearance normal, both eyes and all related structures EOM: EOMs intact bilaterally Neck Neck: Yes normal visual inspection and Yes no meningeal signs Resp Effort & Inspection: normal respiratory effort and no respiratory distress Auscultation: clear to auscultation bilaterally, no crackles and no wheezes Cardio Rate: regular rate Heart sounds: S1 normal heart sound present and S2 normal heart sound present Skin Rashes: no rashes Wounds: no wounds Neuro General: patient oriented x3, tone normal and no meningeal signs Cranial nerves: Yes CN's II-XII intact bilaterally Gait exam (Neuro): Normal gait present Extrem General: Yes normal to inspection Course Course Course Narrative: -1028--CXR unremarkable. COVID-19 positive > bilateral ears irrigated with saline/peroxide and curette > no evidence of infection Results discussed with patient including worrisome signs and symptoms and strict return precautions, and when to return to the emergency department. They verbalized understanding and feel safe for discharge at this time. Procedures Ear Wax Removal Both Ears: Cerumenolytic Used: 5-10% Sodium Bicarb solution Results: Re-examined: cerumen removed completely (from left) and some cerumen remains (on right) TM Examination: TM(s) intact, normal appearance Ear Canal Exam: atraumatic Patient Tolerated Procedure: well Complications: no problems Technique: ear canal irrigated and ear canal curetted Medical Decision Making Medical Decision Making MDM Narrative: 43-year-old male with a past medical history of PTSD, anxiety, depression, asthma, HTN, presenting to the ED complaining of productive cough, congestion, SOB x few days, and bilateral ear blockage/decreased hearing x 1 month. On exam vital signs stable, NAD, nontoxic appearing, nasal congestion appreciated, lungs CTA, bilateral cerumen impaction noted. Ears irrigated and curetted without evidence of infection. Concern for viral illness versus bronchitis/pneumonia vs otitis. Low suspicion for ACS/PE Plan: Viral testing, CXR Please refer to course for remaining clinical decision making, interpretation of labs/imaging results, and discussions with consultants and/or family members. Differential Diagnosis Differential Diagnoses: The differential diagnosis associated with the presentation includes As above Lab Data [facility] [place] Lab Attestation statement: I reviewed the patient's lab results. Labs: Lab Results 08/15/23 Range/Units 09:06 Influenza Type A (PCR) NEGATIVE (Negative) Influenza Type B (PCR) NEGATIVE (Negative) RSV RNA Qual (PCR) NEGATIVE (Negative) SARS-CoV-2 RNA (RT-PCR) POSITIVE A (Negative) Independent Interpretation I performed an independent interpretation of an: Plain X-Ray Radiology Impression Discussion of test interpretation with radiology: I have reviewed the radiologist's reading. External Record Review External record reviewed: Inpatient record, Office record, Outpatient record, Prior outpatient labs, Prior outpatient radiology, Primary care record and Outside ED record Tests considered The following testing was considered but not selected: As above Prescription Management I considered prescription management with: Pain Medication Discharge Plan Discharge Clinical Impression: COVID-19 Patient Disposition: Home, Self-Care Instructions: COVID-19 (Coronavirus Disease 2019) (ED) Additional Instructions: YOU HAVE COVID-19 At this time you will be okay for discharge. Please self isolate for 5 days. Do not expose yourself to others. You may not go to work or school. Please continue to follow cold instructions and wash your hands frequently. You may take Tylenol / Motrin as directed on the bottle for pain or fever. If you have constant or persistent shortness of breath, fever unresolved with medications, chest pain, or your unable to eat or drink please return to the ED CDC Guidelines for home isolation: - Stay away from others - WEAR A MASK if you are sick AND STAY HOME - Cover your mouth and nose with a tissue when you cough or sneeze. Dispose of tissues in a lined trash can and wash your hands immediately with soap and water for at least 20 seconds. If soap and water are not available, clean hands with alcohol-based hand filler picker that contains at least 60% alcohol. - Clean your hands often with soap and water for at least 20 seconds - Avoid touching your eyes, nose and mouth with unwashed hands - Do not share dishes, drinking glasses, cups, eating utensils, towels, or bedding with other people in your home. After using these items, wash them thoroughly with soap and water or put in the project management professional. - Clean high-touch surfaces in your isolation area ( sick room and bathroom) every day; let a caregiver clean and disinfect high-touch surfaces in other areas of the home. Clean the area or item with soap and water or another detergent if it is dirty. Then, use a household disinfectant. - Limit contact with pets and animals: If you must care for a pet, wash your hands before and after interacting with them) Prescriptions: New benzonatate 100 mg capsule 100 mg PO TID PRN (Reason: cough) Qty: 14 0RF fluticasone propionate [Flonase Allergy Relief] 50 mcg/actuation spray,suspension 2 spray intranasal DAILY Qty: 16 0RF Rx Instructions: administer into each nostril No Action albuterol 90 mcg/actuation Aerosol 90 mcg INHALATION cholecalciferol (vitamin D3) [Vitamin D3] 50 mcg (2,000 unit) Capsule 50 mcg PO DAILY metformin 1,000 mg PO 1XD tadalafil 20 mg tablet 20 mg PO DAILY PRN testosterone cypionate 200 mg/mL oil 200 mg IM QWEEK Referrals: Anu Zaragoza MD [Primary Care Provider] - 1 week Barry Aceves [Physician] - Stand Alone Forms: Work/School Release Interventions: ED Discharge Assessment Last Done: 08/15/23 11:16 Discharge Date/Time: 08/15/23 11:21
== END 2023-08-15 11:21 | disposition home or self-care (01) ==
PROVIDERS: Emergency Provider Emergency Medicine Emergency Medical Services; PCP Internal Medicine
DX: U07.1 COVID-19 (principal); H61.23 Impacted cerumen, bilateral; R05.9 Cough, unspecified; R06.02 Shortness of breath; Z79.899 Other long term (current) drug therapy
CPT/HCPCS: 0241U; 69209; 71046; 99283; 99284

== ENCOUNTER 2023-09-21 09:18 | Outpatient (REF) | payer MEDICAID, SELFPAY ==
[2023-09-21 09:43] LABS: MANUAL DIFF FLAG NO
[2023-09-21 09:59] LABS: Basophils Percent Auto 0.4 % (0-2); Eosinophils Absolute Auto 0.2 X10*3/uL (0.0-0.4); Eosinophils Percent Auto 2.5 % (0-4); Hematocrit 46.9 % (42.0-52.0); Hemoglobin 15.8 g/dl (14.0-18.0); Imm Gran Abs Auto 0.04 X10*3/uL (0.00-0.03); Imm Gran Pct Auto 0.5 % (0.0-0.4); Lymphocytes Absolute Auto 1.8 X10*3/uL (1.2-4.9); Lymphocytes Percent Auto 21.8 % (20-40); Mean Corpuscular HGB Conc 33.7 g/dl (31.0-36.0); Mean Corpuscular Hemoglobin 27.7 pg (27.0-33.0); Mean Corpuscular Volume 82.3 fL (80.0-98.0); Mean Platelet Volume 10.6 fL (9.4-12.4); Monocytes Absolute Auto 0.4 X10*3/uL (0.1-1.2); Neutrophils Absolute Auto 5.8 x10*3/uL (2.0-8.3); Neutrophils Percent Auto 69.8 % (45-73); Platelet Count 251 X10*3/uL (160-400); Red Cell Distribution Width 14.3 % (11.0-16.0); White Blood Count 8.3 X10*3/uL (4.8-10.8)
[2023-09-21 10:09] LABS: Estimated Average Glucose 103 mg/dL; Hemoglobin A1c % 5.2 % (<6.0)
[2023-09-21 10:20] LABS: Alanine Aminotransferase 39 U/L (0-40); Albumin Level 4.7 g/dL (3.5-5.0); Alkaline Phosphatase 62 U/L (39-117); Anion Gap 12 (12-20); Aspartate Amino Transferase 22 U/L (5-37); Bilirubin Total 0.4 mg/dL (0.0-1.0); Blood Urea Nitrogen 10 mg/dL (9-16); Calcium 9.6 mg/dL (8.4-10.2); Carbon Dioxide 27 mmol/L (22-29); Chloride 105 mmol/L (96-108); Cholesterol 191 mg/dL (<200); Estimated Glomerular Filt Rate > 60; Glucose Random 90 mg/dL (60-115); HDL Cholesterol 47 mg/dL (>40); LDL Cholesterol Calculated 124 mg/dL (<100); Sodium 140 mmol/L (135-145); Total Protein 7.5 g/dL (6.5-8.0); Triglycerides 101 mg/dL (<150)
[2023-09-25 13:42] LABS: Testosterone, Free 42.2 pg/mL (35.0-155.0); Testosterone, Total 213 ng/dL (250-1100)
[2023-09-26 22:18] LABS: Estradiol Ultra Sensitive 23 pg/mL (< OR = 29)
== END 2023-09-21 09:19 | disposition home or self-care (01) ==
LOC: HO.LAB 09:18
PROVIDERS: Physician Assistant; Visit Provider Internal Medicine
DX: E29.1 Testicular hypofunction (principal); E11.9 Type 2 diabetes mellitus without complications; E78.00 Pure hypercholesterolemia, unspecified; I10 Essential (primary) hypertension; J30.89 Other allergic rhinitis
CPT/HCPCS: 36415; 80053; 80061; 82670; 83036; 84402; 84403; 85025

== ENCOUNTER 2023-10-09 08:11 | Outpatient (AMB) | payer MEDICAID, SELFPAY ==
--- NOTE | 2023-10-09 08:15 | MHC.OFFVIS ---
Intake Vital Signs 10/09/23 08:17 Height 5 ft 11 in Weight 327 lb BMI 45.6 BP 133/68 Blood Pressure Location Lt brachial Position Sitting Respiration 12 Pulse 86 Pulse Source Pulse Oximeter Pulse Oximetry (%) 99 Oxygen Delivery Method Room Air Intake Visit Reasons: trigger point injection Allergies latex Allergy (Verified 10/09/23 08:19) unknown peanut Allergy (Verified 10/09/23 08:19) Unknown Penicillins [PCN] Allergy (Verified 10/09/23 08:19) Hives amoxicillin Adverse Reaction (Verified 10/09/23 08:19) Unknown hydrocodone Adverse Reaction (Verified 10/09/23 08:19) unknown oxycodone Adverse Reaction (Verified 10/09/23 08:19) Unknown Medication List - Last Reconciled 10/09/23 by Mer Cornejo LPN albuterol 90 mcg/actuation 90 mcg inhalation dulaglutide (Trulicity) 3 mg subcut QWEEK fluticasone propionate 50 mcg/actuation (Flonase Allergy Relief) 2 sprays intranasal DAILY tadalafil 20 mg PO DAILY PRN testosterone cypionate 200 mg IM QWEEK HPI trigger point injection HPI Details 43-year-old male who presents today to the office for trigger point injections. Denies any recent cough, cold, infection, fever or other significant changes in medical history since last office visit. He reports neck pain. He states that He never had cortisone or epidural injections in the past. He did have radiofrequency ablation of cervical medial branches with good effect. He last did physical therapy about 2 years ago. He is interested in trying pain pump for low back pain. He has also had radiofrequency ablations of his lumbar facets with good results in the past. Past Procedures: 02/10/23: Trigger point injections: 50% relief for several weeks. 01/06/2023: Trigger point injection: 50% relief for 2 weeks 12/02/2022: Trigger point injection: 50% relief for several days. 10/21/2022: Trigger point injection given to bilateral cervical paraspinal, trapezius, and thoracic rhomboid muscles: 50% relief. 08/10/22: Sprint Trial Implant ? 50% relief overall, were since device removal. 07/13/22: Right L2-L3 Diagnostic MBBs - >50% relief. [facility] Medical History Post traumatic stress disorder (PTSD) MDD (major depressive disorder), recurrent episode, moderate Anxiety Spondylosis of cervical spine Cholecystectomy planned Obesity Depression DJD (degenerative joint disease), thoracic Back pain Arthritis, rheumatoid Asthma Hypertension Surgical History H/O arthroscopy of shoulder Social History Household Members: Family Housing: House Do you presently have visiting nurse or other home services: No Patient Tobacco Use Status: Never used Tobacco e-Cigarette/Vaping Use: Never Used service: No Sexual orientation: Straight/Heterosexual Review of Systems Const All systems reviewed & are unremarkable except as noted in HPI and below Physical Exam Vital Signs: Last Vital Signs Pulse 86 10/09/23 08:17 Resp 12 10/09/23 08:17 BP 133/68 10/09/23 08:17 Pulse Ox 99 10/09/23 08:17 Oxygen Delivery Method Room Air 10/09/23 08:17 BMI result Body Mass Index 45.6 General: Appears afebrile. Alert and oriented. Mood and affect appropriate. Follows and participates in conversation appropriately. Respiratory effort is unlabored. Able to transition from sit to stand unassisted. Ambulates with bilaterally normal heel strike and toe off. Office Procedures Injection Trigger Point Multi Pre-procedure diagnosis: Myofascial pain Post-procedure diagnosis: Myofascial pain Site and number of trigger points: Occipitalis, bilateral Trapezius, bilateral Rhomboid, bilateral Serratus, bilateral Lat Dorsi, bilateral Solution: Total volume administered ropivacaine 0.25% 30 mL The procedure, its benefits, and its risks were explained to the patient and all questions were answered. Prior to the start of the procedure, a ?time out? was performed to confirm correct patient, procedure, and laterality. Trigger points were identified by manual palpation and marked. The skin was cleaned with Chloraprep. A 1.5 inch 25 G needle was used. Each of the trigger points were approximated and elevated in the direction away from the body. Dry needling then took place for five seconds. Approximately 0.5 ml to 1 ml of injectate was delivered to the trigger point followed by dry needling for five seconds. This process was repeated at each trigger point site. The patient tolerated the procedure well. Post-procedure, breath sounds were equal at both sides of the chest. The patient tolerated the procedure well, without complication. The patient denied any numbness, paresthesias, or weakness. Post-procedure vitals were recorded as part of the nursing discharge note in electronic medical record. Following a period of observation, the patient was discharged in stable condition with written discharge instructions. Trigger Point Multiple: - Trigger point injection =/>3 Results Reviewed Results Reviewed: No imaging is available for review. Assessment & Plan Assessment & Plan (1) Cervical radiculopathy: Code(s): M54.12 - Radiculopathy, cervical region (2) Spondylosis of lumbar region without myelopathy or radiculopathy: Code(s): M47.816 - Spondylosis without myelopathy or radiculopathy, lumbar region (3) Myofascial pain: Code(s): M79.18 - Myalgia, other site Plan Patient is status post trigger point injections. Patient tolerated procedure well and was discharged home in stable condition with discharge instructions. All questions were answered. A referral was provided to physical therapy for his cervical radicular symptoms. The patient will receive a call to schedule an appointment. A script was also provided to the patient for physical therapy. We will plan for bilateral lumbar diagnostic medial branch blocks in the anticipation of repeat lumbar radiofrequency ablation. Discussed the risks and benefits of the procedure with the patient in detail. All questions were answered. The patient is on board with the plan. Justification for interventional therapy: ? Patient with average pain > 6/10 ? Patient has exhausted conservative therapy ? Actively performing physical therapy Scribed for Dr. Giron by Vinicio Booker, medical delivery driver, on 10/09/2023. I, Dr. Giron, have personally reviewed and agree with the information entered by the scribe. Orders: Orders PT Evaluation and Treatment 10/09/23 M54.12 - Radiculopathy, cervical region Coding Level of Care Code Est Pt Level 4 (03701) Diagnoses Cervical radiculopathy M54.12 Spondylosis of lumbar region without myelopathy or radiculopathy M47.816 Myofascial pain M79.18 CPT Codes Details - Trigger Point Multiple: 61693- Trigger point injection =/>3 ([id number])
[2023-10-09 08:17] VITALS: BP 133/68; PULSE 86; RESP 12; O2SAT 99; BMI 45.6
== END 2023-10-09 08:48 | disposition home or self-care (01) ==
PROVIDERS: PCP Internal Medicine; Visit Provider Internal Medicine
DX: M54.12 Radiculopathy, cervical region (principal); M47.816 Spondylosis without myelopathy or radiculopathy, lumbar region; M79.18 Myalgia, other site
CPT/HCPCS: 20553; 99214

== ENCOUNTER → 2023-10-09 08:11 | Outpatient (BNVA) | payer MEDICAID, SELFPAY | PROVIDERS: PCP Internal Medicine; Visit Provider Internal Medicine | DX: M79.18 Myalgia, other site (principal); M54.12 Radiculopathy, cervical region; M47.816 Spondylosis without myelopathy or radiculopathy, lumbar region | CPT/HCPCS: 20553; 99212; J2795 ==

== ENCOUNTER 2023-10-16 08:16 | Emergency (ER) | payer OTHER, MEDICAID, SELFPAY ==
--- NOTE | ~2023-10-16 | XR_ITS ---
EXAMINATION: XR SHOULDER, RIGHT CLINICAL INFORMATION: Pain, injury COMPARISON: None available. TECHNIQUE: Three views of the right shoulder. FINDINGS: The humeral head is well positioned over the intact glenoid. Glenohumeral joint space is normal: no arthritic deformity, fracture or subluxation. There appears to be mild osteoarthrosis of the acromioclavicular joint. A small well-corticated ossicle is seen along the superior ligament of the joint. The subacromial space is normal. There are no osteophytes projecting from the undersurface of the acromioclavicular joint. No hook-shaped acromion, os acromiale or subacromial enthesophyte. No osseous findings that would predispose to a subacromial impingement disorder. No calcium deposition within rotator cuff tendons. The visualized right lung is normal. XR/XR shoulder RT min 2V IMPRESSION: Mild osteoarthrosis of the acromioclavicular joint. Otherwise, unremarkable right shoulder.
[2023-10-16 08:58] VITALS: BP 154/99; PULSE 80; RESP 18; TEMP 36.5; O2SAT 100; BMI 46.3
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
== END 2023-10-16 11:02 | disposition home or self-care (01) ==
PROVIDERS: Emergency Provider Emergency Medicine; PCP Internal Medicine
DX: Z04.1 Encounter for examination and observation following transport accident (principal); M25.511 Pain in right shoulder; I10 Essential (primary) hypertension
CPT/HCPCS: 73030; 99283

== ENCOUNTER 2023-10-19 06:08 | Outpatient (REF) | payer MEDICAID, SELFPAY ==
--- NOTE | ~2023-10-19 | FL_ITS ---
EXAMINATION: XR FLUOROSCOPY WITH IMAGES CLINICAL INFORMATION: Lumbar spondylosis, without myelopathy or radiculopathy. COMPARISON: None available. TECHNIQUE: Fluoroscopy Supervised By: Dr. Lee. Fluoroscopy Time: 0.1 minutes. Cumulative Dose: 5.53 mGy. DAP: 0.0961 mGym2. Images: 2. FINDINGS: The submitted image shows injection needles injected contrast in the vicinity of the bilateral L3-L4 and L4-L5 neural foramina. FL/FL guidance in treatment room IMPRESSION: Intraoperative fluoroscopy is provided during lumbar pain management procedure. Please see the patient's Operative Report for full procedural details.
== END 2023-10-19 06:09 | disposition home or self-care (01) ==
LOC: CF 06:08
PROVIDERS: Visit Provider Internal Medicine
DX: M47.816 Spondylosis without myelopathy or radiculopathy, lumbar region (principal)
CPT/HCPCS: 64493; J2795; Q9967

== ENCOUNTER 2023-10-19 10:00 | Outpatient (AMB) | payer MEDICAID, SELFPAY ==
[2023-10-19 10:07] VITALS: BP 128/84; PULSE 86; RESP 18; O2SAT 98; BMI 44.9
--- NOTE | 2023-10-19 10:07 | MHC.OFFVIS ---
Intake Vital Signs 10/19/23 10:07 10/19/23 10:32 Height 5 ft 11 in Weight 322 lb BMI 44.9 BP 128/84 126/80 Blood Pressure Location Lt brachial Lt brachial Position Sitting Sitting Respiration 18 18 Pulse 86 86 Pulse Source Pulse Oximeter Pulse Oximeter Pulse Oximetry (%) 98 97 Oxygen Delivery Method Room Air Room Air Comment Pre-Op Intake Visit Reasons: Drake Dx L2-L3 MBB Allergies latex Allergy (Verified 10/09/23 08:19) unknown peanut Allergy (Verified 10/09/23 08:19) Unknown Penicillins [PCN] Allergy (Verified 10/09/23 08:19) Hives amoxicillin Adverse Reaction (Verified 10/09/23 08:19) Unknown hydrocodone Adverse Reaction (Verified 10/09/23 08:19) unknown oxycodone Adverse Reaction (Verified 10/09/23 08:19) Unknown HPI Drake Dx L2-L3 MBB HPI Details Patient presents for scheduled procedure. Denies any recent cough, cold, infection, fever or other significant changes in medical history since last office visit. [facility] Medical History Post traumatic stress disorder (PTSD) MDD (major depressive disorder), recurrent episode, moderate Anxiety Spondylosis of cervical spine Cholecystectomy planned Obesity Depression DJD (degenerative joint disease), thoracic Back pain Arthritis, rheumatoid Asthma Hypertension Surgical History H/O arthroscopy of shoulder Social History Household Members: Family Housing: House Do you presently have visiting nurse or other home services: No Patient Tobacco Use Status: Never used Tobacco e-Cigarette/Vaping Use: Never Used service: No Sexual orientation: Straight/Heterosexual Physical Exam Vital Signs: Last Vital Signs Pulse 86 10/19/23 10:07 Resp 18 10/19/23 10:07 BP 128/84 10/19/23 10:07 Pulse Ox 98 10/19/23 10:07 Oxygen Delivery Method Room Air 10/19/23 10:07 BMI result Body Mass Index 44.9 Office Procedures Lumbar/Sacral Facet Inj Details: Lumbar Medial Branch Block, L3, L4 medial branches (1 level, 2 nerves) After obtaining written consent, pre-procedure blood pressure and pulse were recorded and are in the nursing record for review. The patient was placed in a prone position. The respective lumbosacral area was prepped with chloraprep and draped in sterile fashion. The skin over the target medial branch nerves was anesthetized with 0.5% lidocaine. A 22 gauge 5 inch needle was inserted into the target medial branch nerve under fluoroscopic guidance. No paresthesias were elicited with needle placement and aspiration was negative for blood and CSF. Next, 0.2cc of omnipaque 180 was injected to verify positioning. Next 0.5 ml 0.5% ropivicaine was injected (0.5cc total per nerve). The skin was cleansed and a sterile bandage was applied. Following the procedure the patient's vital signs were stable. The patient tolerated the procedure well and no complications were encountered. Following the procedure the patient's vital signs were stable. The patient was discharged home in good condition with post-procedural instructions. Time Out: Immediately prior to the procedure, the following was verbally confirmed that there is a signed consent form and that the correct patient, planned procedure, site and side are consistent with documentation and that necessary equipment and/or blood products are available prior to the start of the case. Complications: none EBL: <5 cc 51702 - with Fluoroscopy (Bilateral) Procedure code (CPT) selection complete Assessment & Plan Assessment & Plan (1) Facet arthropathy, multilevel: Code(s): M47.819 - Spondylosis without myelopathy or radiculopathy, site unspecified Plan Patient is status post diagnostic L3, L4 medial branch blocks. Patient tolerated procedure well and was discharged home in stable condition with discharge instructions. All questions were answered. We will follow-up via telephone or in clinic to assess response to therapy. A follow-up appointment was made during today's visit. Orders: Orders FL guidance in treatment room Today M47.816 - Spondylosis without myelopathy or radiculopathy, lumbar region, M47.819 - Spondylosis without myelopathy or radiculopathy, site unspecified Coding Level of Care Code Procedure Only Diagnoses Facet arthropathy, multilevel M47.819 CPT Codes Facet Injection-Lumbar/Sacral - CPT: 00128 - with Fluoroscopy ([id number])
[2023-10-19 10:32] VITALS: BP 126/80; PULSE 86; RESP 18; O2SAT 97
== END 2023-10-19 11:08 | disposition home or self-care (01) ==
LOC: HO.PMCPRC 10:00
PROVIDERS: PCP Internal Medicine; Visit Provider Internal Medicine
DX: M47.816 Spondylosis without myelopathy or radiculopathy, lumbar region (principal)
CPT/HCPCS: 64493

== ENCOUNTER 2023-10-23 07:58 | Outpatient (AMB) | payer MEDICAID, SELFPAY ==
--- NOTE | 2023-10-23 08:03 | A.OFFVIS_ITS ---
Intake Vital Signs 10/23/23 08:04 Height 5 ft 11 in Weight 331 lb BMI 46.2 BP 173/96 H Blood Pressure Location Lt radial Position Sitting Respiration 12 Pulse 85 Pulse Source Pulse Oximeter Pulse Oximetry (%) 99 Oxygen Delivery Method Room Air Intake Visit Reasons: s/p charity Dx lumbar MBB Allergies latex Allergy (Verified 10/23/23 08:05) unknown peanut Allergy (Verified 10/23/23 08:05) Unknown Penicillins [PCN] Allergy (Verified 10/23/23 08:05) Hives amoxicillin Adverse Reaction (Verified 10/23/23 08:05) Unknown hydrocodone Adverse Reaction (Verified 10/23/23 08:05) unknown oxycodone Adverse Reaction (Verified 10/23/23 08:05) Unknown Medication List - Last Reconciled 10/23/23 by Mer Cornejo LPN albuterol 90 mcg/actuation 90 mcg inhalation cyclobenzaprine 5 mg PO TID PRN 7 days dulaglutide (Trulicity) 3 mg subcut QWEEK fluticasone propionate 50 mcg/actuation (Flonase Allergy Relief) 2 sprays intranasal DAILY tadalafil 20 mg PO DAILY PRN testosterone cypionate 200 mg IM QWEEK HPI s/p charity Dx lumbar MBB HPI Details 43-year-old male who presents today to t he office for a status post bilateral diagnostic lumbar MBB. The patient reports 50% relief following the procedure. Past history is notable for lower lumbar radiofrequency ablation that has provided 60 to 70% relief for six months or more. The patient is amenable to repeat the RFA. The patient reports shoulder pain. He has a history of rotator cuff issues. He had shoulder surgery in 2021. He has tried physical therapy in the past. He was recently in He has also tried cold compression at home for relief. He is interested in a cortisone injection for shoulder pain today in the office.? Past procedures: 10/19/23: Lumbar Medial Branch Block, L3 , L4 medial branches (1 level, 2 nerves): 50% relief. 10/09/23: Trigger point injections: 50% r elief. 02/10/23: Trigger point injections: 50% r elief for several weeks. 01/06/2023: Trigger point injection: 50% relief for 2 weeks 12/02/2022: Trigger point injection: 50% relief for several days. 10/21/2022: Trigger point injection give n to bilateral cervical paraspinal, trapezius, and thoracic rhomboid muscles: 50% relief. 08/10/22: Sprint Trial Implant ? 50% relie f overall, were since device removal. 07/13/22: Right L2-L3 Diagnostic MBBs - > 50% relief. [facility] Medical History Post traumatic stress disorder (PTSD) MDD (major depressive disorder), recurrent episode, moderate Anxiety Spondylosis of cervical spine Cholecystectomy planned Obesity Depression DJD (degenerative joint disease), thoracic Back pain Arthritis, rheumatoid Asthma Hypertension Surgical History H/O arthroscopy of shoulder Social History Household Members: Family Housing: House Do you presently have visiting nurse or other home services: No Patient Tobacco Use Status: Never used Tobacco e-Cigarette/Vaping Use: Never Used service: No Sexual orientation: Straight/Heterosexual Review of Systems Const All systems reviewed & are unremarkable except as noted in HPI and below Physical Exam Vital Signs: Last Vital Signs Pulse 85 10/23/23 08:04 Resp 12 10/23/23 08:04 BP 173/96 H 10/23/23 08:04 Pulse Ox 99 10/23/23 08:04 Oxygen Delivery Method Room Air 10/23/23 08:04 BMI result Body Mass Index 46.2 General: Appears afebrile. Alert and oriented. Mood and affect appropriate. Follows and participates in conversation appropriately. Respiratory effort is unlabored. Able to transition from sit to stand unassisted. Ambulates with bilaterally normal heel strike and toe off. Tenderness overlying the right acromioclavicular joint. Office Procedures Joint Injection/Drain Joint Injection/Drain Details: Right acromioclavicular joint injection, under ultrasound guidance Primary Site: right shoulder Prep: site was prepped using sterile technique Injected: 40 mg of, Kenalog, with 1 mL of (Normal saline) and in the joint Approach Used: other (Superior) Procedure: The patient tolerated the procedure well Coding Details: An ultrasound image of the injection was taken and stored in the permanent record. - Acromioclavicular with ultrasound guidance (right) Procedure code (CPT) selection complete Results Reviewed Results Reviewed: 10/16/23: XR SHOULDER, RIGHT FINDINGS: The humeral head is well positioned over the intact glenoid. Glenohumeral joint space is normal: no arthritic deformity, fracture or subluxation. There appears to be mild osteoarthrosis of the acromioclavicular joint. A small well-corticated ossicle is seen along the superior ligament of the joint. The subacromial space is normal. There are no osteophytes projecting from the undersurface of the acromioclavicular joint. No hook-shaped acromion, os acromiale or subacromial enthesophyte. No osseous findings that would predispose to a subacromial impingement disorder. No calcium deposition within rotator cuff tendons. The visualized right lung is normal. IMPRESSION: Mild osteoarthrosis of the acromioclavicular joint. Otherwise, unremarkable right shoulder. Assessment & Plan Assessment & Plan (1) Acromioclavicular joint arthritis: Code(s): M19.019 - Primary osteoarthritis, unspecified shoulder (2) Spondylosis of lumbar region without myelopathy or radiculopathy: Code(s): M47.816 - Spondylosis without myelopathy or radiculopathy, lumbar region Plan He is interested in proceeding with another round of radiofrequency ablation of the lower lumbar medial branches. Past history is notable for lower lumbar radiofrequency ablation that has provided 60 to 70% relief for six months or more. We will schedule him for a right L3-L4-L5 medial branch radiofrequency ablation followed by left L3-L4-L5 medial branch radiofrequency ablation one week later. Discussed the risks and benefits of the procedure with the patient in detail. All questions were answered. The patient is on board with the plan. Justification for interventional therapy: ? Patient with average pain > 6/10 ? Patient has exhausted conservative therapy . Previous radiofrequency ablation provided more than 70% relief for more than 6 months with a recent positive diagnostic injection Patient is status post right acromioclavicular joint injection, under ultrasound guidance. Patient tolerated procedure well and was discharged home in stable condition with discharge instructions. All questions were answered. Scribed for Dr. Giron by Vinicio Booker, medical office assistant, on 10/23/2023. I, Dr. Giron, have personally reviewed and agree with the information entered by the scribe. Coding Level of Care Code Est Pt Level 4 (44512) Diagnoses Acromioclavicular joint arthritis M19.019 Spondylosis of lumbar region without myelopathy or radiculopathy M47.816 CPT Codes Coding - Joint 6: 39174 - Acromioclavicular with ultrasound guidance ([id number])
[2023-10-23 08:04] VITALS: BP 173/96; PULSE 85; RESP 12; O2SAT 99; BMI 46.2
== END 2023-10-23 08:49 | disposition home or self-care (01) ==
PROVIDERS: PCP Internal Medicine; Visit Provider Internal Medicine
DX: M47.816 Spondylosis without myelopathy or radiculopathy, lumbar region (principal); M19.011 Primary osteoarthritis, right shoulder
CPT/HCPCS: 20606; 99214

== ENCOUNTER → 2023-10-23 07:58 | Outpatient (BNVA) | payer MEDICAID, SELFPAY | PROVIDERS: PCP Internal Medicine; Visit Provider Internal Medicine | DX: M19.019 Primary osteoarthritis, unspecified shoulder (principal); M47.816 Spondylosis without myelopathy or radiculopathy, lumbar region | CPT/HCPCS: 20606; 99212; J3301 ==

== ENCOUNTER 2023-11-09 06:37 | Outpatient (REF) | payer MEDICAID, SELFPAY ==
--- NOTE | ~2023-11-09 | FL_ITS ---
EXAMINATION: XR FLUOROSCOPY WITH IMAGES CLINICAL INFORMATION: Right lumbar radiofrequency ablation. COMPARISON: None available. TECHNIQUE: Fluoroscopy Supervised By: Dr. Rome Giron. Fluoroscopy Time: 0.5 units. Cumulative Dose: 15.1 mGy. DAP: 0.100 Gycm2. Images: 4. FINDINGS: The submitted images show needles directed at the right paralumbar region. FL/FL guidance in treatment room IMPRESSION: Intraoperative fluoroscopic guidance is provided during right lumbar radiofrequency ablation. Please see the patient's Operative Report for full procedural details.
== END 2023-11-09 06:38 | disposition home or self-care (01) ==
LOC: CF 06:37
PROVIDERS: Visit Provider Internal Medicine
DX: M47.816 Spondylosis without myelopathy or radiculopathy, lumbar region (principal)
CPT/HCPCS: 64635; 64636; J2795

== ENCOUNTER 2023-11-09 10:34 | Outpatient (AMB) | payer MEDICAID, SELFPAY ==
[2023-11-09 10:42] VITALS: BP 136/90; PULSE 78; RESP 18; O2SAT 98; BMI 46.0
--- NOTE | 2023-11-09 10:42 | MHC.OFFVIS ---
Intake Vital Signs 11/09/23 10:42 11/09/23 12:14 Height 5 ft 11 in Weight 330 lb BMI 46.0 BP 136/90 H 132/88 Blood Pressure Location Lt brachial Lt brachial Position Sitting Sitting Respiration 18 18 Pulse 78 74 Pulse Source Pulse Oximeter Pulse Oximeter Pulse Oximetry (%) 98 99 Oxygen Delivery Method Room Air Room Air Comment Pre-Op Post-op Intake Visit Reasons: Right L3-L4-L5 RFA Allergies latex Allergy (Verified 10/23/23 08:05) unknown peanut Allergy (Verified 10/23/23 08:05) Unknown Penicillins [PCN] Allergy (Verified 10/23/23 08:05) Hives amoxicillin Adverse Reaction (Verified 10/23/23 08:05) Unknown hydrocodone Adverse Reaction (Verified 10/23/23 08:05) unknown oxycodone Adverse Reaction (Verified 10/23/23 08:05) Unknown HPI Right L3-L4-L5 RFA HPI Details Patient presents for scheduled procedure. Denies any recent cough, cold, infection, fever or other significant changes in medical history since last office visit. [facility] Medical History Post traumatic stress disorder (PTSD) MDD (major depressive disorder), recurrent episode, moderate Anxiety Spondylosis of cervical spine Cholecystectomy planned Obesity Depression DJD (degenerative joint disease), thoracic Back pain Arthritis, rheumatoid Asthma Hypertension Surgical History H/O arthroscopy of shoulder Social History Household Members: Family Housing: House Do you presently have visiting nurse or other home services: No Patient Tobacco Use Status: Never used Tobacco e-Cigarette/Vaping Use: Never Used service: No Sexual orientation: Straight/Heterosexual Physical Exam Vital Signs: Last Vital Signs Pulse 74 11/09/23 12:14 Resp 18 11/09/23 12:14 BP 132/88 11/09/23 12:14 Pulse Ox 99 11/09/23 12:14 Oxygen Delivery Method Room Air 11/09/23 12:14 BMI result Body Mass Index 46.0 Office Procedures Details: Radiofrequency lesioning medial branch nerves, Right L3, L4 medial branches and L5 dorsal ramus (L4/5 and L5/S1) (2 levels, 3 nerves) After obtaining written consent, pre-procedure blood pressure and heart rate were stable and recorded in the nursing record. The patient was placed in the prone position. The lumbar area was prepped with chloraprep and draped in sterile fashion. The skin over the target for each medial branch nerve was anesthetized with 0.5% lidocaine. An 18 gauge radiofrequency cannula was advanced to each target site under fluoroscopic guidance. No paresthesias were elicited with needle placement and aspiration was negative for heme and CSF. Impedences were verified under 600 ohms. Sensory (50 Hz) and motor testing (2 Hz) confirmed needle placement at each site within the appropriate voltage thresholds. Each site was injected with 0.5 ml 2% preservative-free lidocaine. Radiofrequency lesioning was performed for 90 seconds at 80 deg Celcius. The needle was removed, skin cleansed and a sterile bandage was applied. The patient tolerated the procedure well and no complications were encountered. Following the procedure the patient's vital signs were stable. The patient was discharged home in good condition with post-procedural instructions. Time Out: Immediately prior to the procedure, the following was verbally confirmed that there is a signed consent form and that the correct patient, planned procedure, site and side are consistent with documentation and that necessary equipment and/or blood products are available prior to the start of the case. Complications: none EBL: <5 cc 82312 - RFA Lumbar Medial Branches 39510 - Lumbar Medial Branches ADDNL Procedure code (CPT) selection complete Assessment & Plan Assessment & Plan (1) Facet arthropathy, multilevel: Code(s): M47.819 - Spondylosis without myelopathy or radiculopathy, site unspecified Plan Patient is status post right L3, L4 medial branches and L5 dorsal ramus radiofrequency ablation. Patient tolerated procedure well and was discharged home in stable condition with discharge instructions. All questions were answered. We will follow-up via telephone or in clinic to assess response to therapy. A follow-up appointment was made during today's visit. Orders: Orders FL guidance in treatment room Today M47.816 - Spondylosis without myelopathy or radiculopathy, lumbar region Coding Level of Care Code Procedure Only Diagnoses Facet arthropathy, multilevel M47.819 CPT Codes Radiofrequency Ablation - Rad-Ablation 3: 10939 - RFA Lumbar Medial Branches ([id number]) Radiofrequency Ablation - Rad-Ablation 4: 58011 - Lumbar Medial Branches ADDNL ([id number])
[2023-11-09 12:14] VITALS: BP 132/88; PULSE 74; RESP 18; O2SAT 99
== END 2023-11-09 12:15 | disposition home or self-care (01) ==
LOC: HO.PMCPRC 10:34
PROVIDERS: PCP Internal Medicine; Referring Provider Internal Medicine; Visit Provider Internal Medicine
DX: M47.816 Spondylosis without myelopathy or radiculopathy, lumbar region (principal)
CPT/HCPCS: 64635; 64636

== ENCOUNTER 2023-11-30 06:11 | Outpatient (REF) | payer MEDICAID, SELFPAY ==
--- NOTE | ~2023-11-30 | FL_ITS ---
EXAMINATION: XR FLUOROSCOPY WITH IMAGES CLINICAL INFORMATION: Left lumbar radiofrequency ablation. COMPARISON: None available. TECHNIQUE: Fluoroscopy Supervised By: Dr. Giron. Fluoroscopy Time: 0.5 minutes Cumulative Dose: 16.2 mGy-cm DAP: 0.124 Gy-cm2 Images: 3. FINDINGS: Submitted images demonstrate needles directed at the lumbar region. Please refer to operative report for full procedural details. FL/FL guidance in treatment room IMPRESSION: Fluoroscopic imaging provided for procedure. Please refer to operative report for more detailed evaluation.
== END 2023-11-30 06:12 | disposition home or self-care (01) ==
LOC: CF 06:11
PROVIDERS: Visit Provider Internal Medicine
DX: M47.816 Spondylosis without myelopathy or radiculopathy, lumbar region (principal)
CPT/HCPCS: 64635; 64636

== ENCOUNTER 2023-11-30 07:31 | Outpatient (REF) | payer MEDICAID, SELFPAY ==
[2023-11-30 07:54] LABS: MANUAL DIFF FLAG NO
[2023-11-30 08:43] LABS: Basophils Percent Auto 0.2 % (0-2); Eosinophils Absolute Auto 0.1 X10*3/uL (0.0-0.4); Eosinophils Percent Auto 1.5 % (0-4); Hematocrit 48.4 % (42.0-52.0); Hemoglobin 16.2 g/dl (14.0-18.0); Imm Gran Abs Auto 0.02 X10*3/uL (0.00-0.03); Imm Gran Pct Auto 0.2 % (0.0-0.4); Lymphocytes Absolute Auto 1.8 X10*3/uL (1.2-4.9); Lymphocytes Percent Auto 21.7 % (20-40); Mean Corpuscular HGB Conc 33.5 g/dl (31.0-36.0); Mean Corpuscular Hemoglobin 27.1 pg (27.0-33.0); Mean Corpuscular Volume 81.1 fL (80.0-98.0); Mean Platelet Volume 10.5 fL (9.4-12.4); Monocytes Absolute Auto 0.5 X10*3/uL (0.1-1.2); Monocytes Percent Auto 5.3 % (2-11); Neutrophils Percent Auto 71.1 % (45-73); Platelet Count 266 X10*3/uL (160-400); Red Blood Count 5.97 X10*6/uL (4.60-5.80); White Blood Count 8.5 X10*3/uL (4.8-10.8)
[2023-11-30 08:54] LABS: Estimated Average Glucose 108 mg/dL; Hemoglobin A1c % 5.4 % (<6.0)
[2023-11-30 09:21] LABS: Alanine Aminotransferase 30 U/L (0-40); Albumin Level 4.7 g/dL (3.5-5.0); Alkaline Phosphatase 65 U/L (39-117); Anion Gap 11 (12-20); Aspartate Amino Transferase 21 U/L (5-37); Bilirubin Total 0.4 mg/dL (0.0-1.0); Blood Urea Nitrogen 18 mg/dL (9-16); Calcium 9.6 mg/dL (8.4-10.2); Carbon Dioxide 27 mmol/L (22-29); Chloride 107 mmol/L (96-108); Cholesterol 204 mg/dL (<200); Estimated Glomerular Filt Rate > 60; Glucose Random 98 mg/dL (60-115); HDL Cholesterol 45 mg/dL (>40); LDL Cholesterol Calculated 140 mg/dL (<100); Potassium 3.8 mmol/L (3.3-5.1); Sodium 141 mmol/L (135-145); Total Protein 7.6 g/dL (6.5-8.0); Triglycerides 99 mg/dL (<150)
[2023-11-30 09:33] LABS: Creatinine Urine 90.49 mg/dL; Microalbumin Urine < 5.0 mg/L
[2023-11-30 09:36] LABS: Prostate Specific Antigen 0.67 ng/mL (<0.05-4.0)
== END 2023-11-30 07:32 | disposition home or self-care (01) ==
LOC: HO.LAB 07:31
PROVIDERS: Absent Provider Physician Assistant; PCP Internal Medicine; Visit Provider Internal Medicine
DX: Z12.5 Encounter for screening for malignant neoplasm of prostate (principal); E29.1 Testicular hypofunction; E11.9 Type 2 diabetes mellitus without complications; I10 Essential (primary) hypertension; M54.50 Low back pain, unspecified
CPT/HCPCS: 36415; 80053; 80061; 82043; 82570; 83036; 84153; 85025

== ENCOUNTER 2023-11-30 09:03 | Outpatient (AMB) | payer MEDICAID, SELFPAY ==
[2023-11-30 08:54] VITALS: BP 134/72; PULSE 72; RESP 18; O2SAT 99; BMI 46.0
--- NOTE | 2023-11-30 08:54 | MHC.OFFVIS ---
Vital Signs 11/30/23 08:54 11/30/23 10:32 Height 5 ft 11 in 5 ft 11 in Weight 330 lb 330 lb BMI 46.0 46.0 BP 134/72 138/80 Blood Pressure Location Lt brachial Lt brachial Position Sitting Sitting Respiration 18 18 Pulse 72 66 Pulse Source Pulse Oximeter Pulse Oximeter Pulse Oximetry (%) 99 100 Oxygen Delivery Method Room Air Room Air Comment pre-op post-op Intake Visit Reasons: Left L3-L4-L5 RFA Allergies latex Allergy (Verified 11/30/23 08:55) unknown peanut Allergy (Verified 11/30/23 08:55) Unknown Penicillins [PCN] Allergy (Verified 11/30/23 08:55) Hives amoxicillin Adverse Reaction (Verified 11/30/23 08:55) Unknown hydrocodone Adverse Reaction (Verified 11/30/23 08:55) unknown oxycodone Adverse Reaction (Verified 11/30/23 08:55) Unknown HPI HPI Left L3-L4-L5 RFA: Details: Patient presents for scheduled procedure. Denies any recent cough, cold, infection, fever or other significant changes in medical history since last office visit. [facility] Medical History Post traumatic stress disorder (PTSD) MDD (major depressive disorder), recurrent episode, moderate Anxiety Spondylosis of cervical spine Cholecystectomy planned Obesity Depression DJD (degenerative joint disease), thoracic Back pain Arthritis, rheumatoid Asthma Hypertension Surgical History H/O arthroscopy of shoulder Social History Household Members: Family Housing: House Do you presently have visiting nurse or other home services: No Patient Tobacco Use Status: Never used Tobacco e-Cigarette/Vaping Use: Never Used service: No Sexual orientation: Straight/Heterosexual Physical Exam Vital Signs: Last Vital Signs Pulse 66 11/30/23 10:32 Resp 18 11/30/23 10:32 BP 138/80 11/30/23 10:32 Pulse Ox 100 11/30/23 10:32 Oxygen Delivery Method Room Air 11/30/23 10:32 BMI result Body Mass Index 46.0 Office Procedures Details: Radiofrequency lesioning medial branch nerves, Left L3, L4 medial branches and L5 dorsal ramus (L4/5 and L5/S1) (2 levels, 3 nerves) After obtaining written consent, pre-procedure blood pressure and heart rate were stable and recorded in the nursing record. The patient was placed in the prone position. The lumbar area was prepped with chloraprep and draped in sterile fashion. The skin over the target for each medial branch nerve was anesthetized with 0.5% lidocaine. An 18 gauge radiofrequency cannula was advanced to each target site under fluoroscopic guidance. No paresthesias were elicited with needle placement and aspiration was negative for heme and CSF. Impedences were verified under 600 ohms. Sensory testing (50 Hz) and then motor testing (2 Hz) confirmed needle placement at each site within the appropriate voltage thresholds. Each site was injected with 0.5 ml 2% preservative-free lidocaine. Radiofrequency lesioning was performed for 90 seconds at 80 deg Celcius. Each site was then injected with 0.5ml 2% lidocaine. The needle was removed, skin cleansed and a sterile bandage was applied. The patient tolerated the procedure well and no complications were encountered. Following the procedure the patient's vital signs were stable. The patient was discharged home in good condition with post-procedural instructions. Time Out: Immediately prior to the procedure, the following was verbally confirmed that there is a signed consent form and that the correct patient, planned procedure, site and side are consistent with documentation and that necessary equipment and/or blood products are available prior to the start of the case. Complications: none EBL: <5 cc 40571 - RFA Lumbar Medial Branches 58139 - Lumbar Medial Branches ADDNL Procedure code (CPT) selection complete Assessment & Plan Assessment & Plan (1) Spondylosis of lumbar region without myelopathy or radiculopathy: Code(s): M47.816 - Spondylosis without myelopathy or radiculopathy, lumbar region Category: Medical Plan Patient is status post left L3, L4 medial branches and L5 dorsal ramus radiofrequency ablation. Patient tolerated procedure well and was discharged home in stable condition with discharge instructions. All questions were answered. We will follow-up via telephone or in clinic to assess response to therapy. A follow-up appointment was made during today's visit. Orders: Orders FL guidance in treatment room Today M47.816 - Spondylosis without myelopathy or radiculopathy, lumbar region Coding Level of Care Code Procedure Only Diagnoses Spondylosis of lumbar region without myelopathy or radiculopathy M47.816 CPT Codes Radiofrequency Ablation - Rad-Ablation 3: 22065 - RFA Lumbar Medial Branches ([id number]) Radiofrequency Ablation - Rad-Ablation 4: 35494 - Lumbar Medial Branches ADDNL ([id number])
[2023-11-30 10:32] VITALS: BP 138/80; PULSE 66; RESP 18; O2SAT 100; BMI 46.0
== END 2023-11-30 10:27 | disposition home or self-care (01) ==
LOC: HO.PMCPRC 09:03
PROVIDERS: PCP Internal Medicine; Referring Provider Internal Medicine; Visit Provider Internal Medicine
DX: M47.816 Spondylosis without myelopathy or radiculopathy, lumbar region (principal)
CPT/HCPCS: 64635; 64636

== ENCOUNTER 2023-12-29 08:50 | Outpatient (AMB) | payer MEDICAID, SELFPAY ==
--- NOTE | 2023-12-29 09:02 | MHC.OFFVIS ---
Vital Signs 12/29/23 09:04 Height 5 ft 11 in Weight 329 lb BMI 45.9 BP 152/92 H Blood Pressure Location Rt radial Position Sitting Respiration 14 Pulse 89 Pulse Source Pulse Oximeter Pulse Oximetry (%) 98 Oxygen Delivery Method Room Air Intake Visit Reasons: s/p charity L3-L4-L5 RFA Allergies latex Allergy (Verified 12/29/23 09:05) unknown peanut Allergy (Verified 12/29/23 09:05) Unknown Penicillins [PCN] Allergy (Verified 12/29/23 09:05) Hives amoxicillin Adverse Reaction (Verified 12/29/23 09:05) Unknown hydrocodone Adverse Reaction (Verified 12/29/23 09:05) unknown oxycodone Adverse Reaction (Verified 12/29/23 09:05) Unknown Medication List - Last Reconciled 12/29/23 by Mer Cornejo LPN albuterol 90 mcg/actuation 90 mcg inhalation cyclobenzaprine 5 mg PO TID PRN 7 days dulaglutide (Trulicity) 3 mg subcut QWEEK fluticasone propionate 50 mcg/actuation (Flonase Allergy Relief) 2 sprays intranasal DAILY tadalafil 20 mg PO DAILY PRN testosterone cypionate 200 mg IM QWEEK HPI HPI s/p charity L3-L4-L5 RFA: Details: 43-year-old male who presents today to the office for a status post bilateral L3-L4-L5 RFA. He reports about 50% pain relief with some persistent pain in the middle of the back region. He wakes up in the morning with mid back pain. He had his last MRI scan in 2019. He does not have result with him to review today. He also reports some axial neck pain. His last RFA of the neck was done in 2019 with more than 50% relief. He has not received any facet injections in his neck recently. He will start physical therapy for neck pain on Monday. Past procedures 11/30/23: Radiofrequency lesioning medial branch nerves, Left L3, L4 medial branches and L5 dorsal ramus (L4/5 and L5/S1) (2 levels, 3 nerves): 50% relief. 11/09/23: Radiofrequency lesioning medial branch nerves, Right L3, L4 medial branches and L5 dorsal ramus (L4/5 and L5/S1) (2 levels, 3 nerves): 50% relief. 10/23/23: Right acromioclavicular joint injection, under ultrasound guidance: % relief. 10/19/23: Lumbar Medial Branch Block, L3, L4 medial branches (1 level, 2 nerves): 50% relief. 10/09/23: Trigger point injections: 50% relief. 02/10/23: Trigger point injections: 50% relief for several weeks. 01/06/2023: Trigger point injection: 50% relief for 2 weeks 12/02/2022: Trigger point injection: 50% relief for several days. 10/21/2022: Trigger point injection given to bilateral cervical paraspinal, trapezius, and thoracic rhomboid muscles: 50% relief. 08/10/22: Sprint Trial Implant ? 50% relief overall, were since device removal. 07/13/22: Right L2-L3 Diagnostic MBBs - >50% relief. [facility] Medical History Post traumatic stress disorder (PTSD) MDD (major depressive disorder), recurrent episode, moderate Anxiety Spondylosis of cervical spine Cholecystectomy planned Obesity Depression DJD (degenerative joint disease), thoracic Back pain Arthritis, rheumatoid Asthma Hypertension Surgical History H/O arthroscopy of shoulder Social History Household Members: Family Housing: House Do you presently have visiting nurse or other home services: No Patient Tobacco Use Status: Never used Tobacco e-Cigarette/Vaping Use: Never Used service: No Sexual orientation: Straight/Heterosexual Review of Systems Const All systems reviewed & are unremarkable except as noted in HPI and below Physical Exam Vital Signs: Last Vital Signs Pulse 89 12/29/23 09:04 Resp 14 12/29/23 09:04 BP 152/92 H 12/29/23 09:04 Pulse Ox 98 12/29/23 09:04 Oxygen Delivery Method Room Air 12/29/23 09:04 BMI result Body Mass Index 45.9 General: Appears afebrile. Alert and oriented. Mood and affect appropriate. Follows and participates in conversation appropriately. Respiratory effort is unlabored. Able to transition from sit to stand unassisted. Ambulates with bilaterally normal heel strike and toe off. Cervical extension and facet loading reproduces pain. Results Reviewed Results Reviewed: No imaging is available for review. Assessment & Plan Assessment & Plan (1) Chronic low back pain: Code(s): M54.50 - Low back pain, unspecified; G89.29 - Other chronic pain Category: Medical (2) Spondylosis of lumbar region without myelopathy or radiculopathy: Code(s): M47.816 - Spondylosis without myelopathy or radiculopathy, lumbar region Category: Medical (3) Spondylosis of cervical spine: Code(s): M47.812 - Spondylosis without myelopathy or radiculopathy, cervical region Category: Medical Plan Ordered MRI of the lumbar spine to rule out any modic changes or endplate degeneration as source of his residual back pain not responsive to lumbar medial branch radiofrequency ablation. He has gotten about 50% response for the lumbar RFA, which is similar to the response that he has gotten in the past, but it continues to have significant axial low back pain, worse with lumbar axial loading. For his cervical axial pain symptoms, we will proceed with a round of diagnostic cervical medial branch blocks left first followed by right one week later, at C4-5-6 level. Discussed the risks and benefits of the procedure with the patient in detail. All questions were answered. The patient is on board with the plan. Justification for interventional therapy: ? Patient with average pain > 6/10 ? Patient has exhausted conservative therapy ? Patient is starting physical therapy this week . Patient has a good understanding of their pain condition and has appropriate mental and social support Scribed for Dr. Giron by Vinicio Booker, ophthalmic medical assistant, on 12/29/2023. I, Dr. Giron, have personally reviewed and agree with the information entered by the scribe. Orders: Orders MR lumbar spine wo con 12/29/23 G89.29 - Other chronic pain, M47.816 - Spondylosis without myelopathy or radiculopathy, lumbar region, M54.50 - Low back pain, unspecified Coding Level of Care Code Est Pt Level 4 (40725) Diagnoses Chronic low back pain M54.50; G89.29 Spondylosis of lumbar region without myelopathy or radiculopathy M47.816 Spondylosis of cervical spine M47.812
[2023-12-29 09:04] VITALS: BP 152/92; PULSE 89; RESP 14; O2SAT 98; BMI 45.9
== END 2023-12-29 09:22 | disposition home or self-care (01) ==
PROVIDERS: PCP Internal Medicine; Referring Provider Internal Medicine; Visit Provider Internal Medicine
DX: M54.50 Low back pain, unspecified (principal); G89.29 Other chronic pain; M47.816 Spondylosis without myelopathy or radiculopathy, lumbar region; M47.812 Spondylosis without myelopathy or radiculopathy, cervical region
CPT/HCPCS: 99214

== ENCOUNTER → 2023-12-29 08:50 | Outpatient (BNVA) | payer MEDICAID, SELFPAY | PROVIDERS: PCP Internal Medicine; Visit Provider Internal Medicine | DX: M54.50 Low back pain, unspecified (principal); M47.816 Spondylosis without myelopathy or radiculopathy, lumbar region; M47.812 Spondylosis without myelopathy or radiculopathy, cervical region; G89.29 Other chronic pain | CPT/HCPCS: 99212 ==

== ENCOUNTER 2024-01-11 06:05 | Outpatient (REF) | payer MEDICAID, SELFPAY ==
--- NOTE | ~2024-01-11 | FL_ITS ---
EXAMINATION: XR FLUOROSCOPY WITH IMAGES CLINICAL INFORMATION: Cervical spondylosis. COMPARISON: None available. TECHNIQUE: Fluoroscopy Supervised By: Dr. Giron . Fluoroscopy Time: 0.1 min. Cumulative Dose: 1.60 mGy. DAP: 0.0226 Gycm2. Images: 2. FINDINGS: Intraoperative fluoroscopy and spot films were performed during a procedure in the OR. [address] at C3, C4 and C5 with contrast injected on the left in the epidural space Please see Dr. Giron' report for complete details. FL/FL guidance in treatment room IMPRESSION: Intraoperative fluoroscopy and spot films were obtained. Please see Dr. Giron' report for complete details.
== END 2024-01-11 06:06 | disposition home or self-care (01) ==
LOC: CF 06:05
PROVIDERS: Visit Provider Internal Medicine
DX: M47.812 Spondylosis without myelopathy or radiculopathy, cervical region (principal)
CPT/HCPCS: 64490; 64491; J2795; Q9967

== ENCOUNTER 2024-01-11 07:47 | Outpatient (AMB) | payer MEDICAID, SELFPAY ==
--- NOTE | 2024-01-11 07:47 | MHC.OFFVIS ---
Vital Signs 01/11/24 07:48 01/11/24 08:41 Height 5 ft 11 in Weight 329 lb BMI 45.9 BP 126/84 Blood Pressure Location Lt brachial Position Sitting Respiration 18 Pulse 79 Pulse Source Pulse Oximeter Pulse Oximetry (%) 99 Oxygen Delivery Method Room Air Comment Pre-Op Post-Op Intake Visit Reasons: Left Dx C4-C5-C6 MBB Allergies latex Allergy (Verified 12/29/23 09:05) unknown peanut Allergy (Verified 12/29/23 09:05) Unknown Penicillins [PCN] Allergy (Verified 12/29/23 09:05) Hives amoxicillin Adverse Reaction (Verified 12/29/23 09:05) Unknown hydrocodone Adverse Reaction (Verified 12/29/23 09:05) unknown oxycodone Adverse Reaction (Verified 12/29/23 09:05) Unknown HPI HPI Left Dx C4-C5-C6 MBB: Details: Patient presents for scheduled procedure. Denies any recent cough, cold, infection, fever or other significant changes in medical history since last office visit. [facility] Medical History Post traumatic stress disorder (PTSD) MDD (major depressive disorder), recurrent episode, moderate Anxiety Spondylosis of cervical spine Cholecystectomy planned Obesity Depression DJD (degenerative joint disease), thoracic Back pain Arthritis, rheumatoid Asthma Hypertension Surgical History H/O arthroscopy of shoulder Social History Household Members: Family Housing: House Do you presently have visiting nurse or other home services: No Patient Tobacco Use Status: Never used Tobacco e-Cigarette/Vaping Use: Never Used service: No Sexual orientation: Straight/Heterosexual Physical Exam Vital Signs: Last Vital Signs Pulse 79 01/11/24 07:48 Resp 18 01/11/24 07:48 BP 126/84 01/11/24 07:48 Pulse Ox 99 01/11/24 07:48 Oxygen Delivery Method Room Air 01/11/24 07:48 BMI result Body Mass Index 45.9 Office Procedures Cervical/Thoracic Facet Inj Details: Diagnostic Cervical Medial Branch Block, Left C3, C4, C5 medial branches After obtaining written consent, pre-procedure blood pressure and pulse were recorded and are in the nursing record for review. The patient was placed in a lateral position. The respective cervical area was prepped with chloraprep and draped in sterile fashion. The skin over the target medial branch nerves was anesthetized with 0.5% lidocaine. A 25 gauge 1.5 inch needle was inserted into the target medial branch nerve under fluoroscopic guidance. No paresthesias were elicited with needle placement and aspiration was negative for blood and CSF. Next, 0.2cc of omnipaque 180 was injected to verify positioning. Next 0.5 ml 0.5% ropivicaine was injected (0.5 cc total per level). The identical procedure was performed at the remaining levels. The skin was cleansed and a sterile bandage was applied. Following the procedure the patient's vital signs were stable. The patient tolerated the procedure well and no complications were encountered. Following the procedure the patient's vital signs were stable. The patient was discharged home in good condition with post-procedural instructions. Time Out: Immediately prior to the procedure, the following was verbally confirmed that there is a signed consent form and that the correct patient, planned procedure, site and side are consistent with documentation and that necessary equipment and/or blood products are available prior to the start of the case. Complications: none EBL: <5 cc 37780 - second level, with Fluoroscopy Procedure code (CPT) selection complete Assessment & Plan Assessment & Plan (1) Spondylosis of cervical spine: Code(s): M47.812 - Spondylosis without myelopathy or radiculopathy, cervical region Category: Medical Plan Patient is status post left C3. C4, C5 diagnostic MBBs. Patient tolerated procedure well and was discharged home in stable condition with discharge instructions. All questions were answered. We will follow-up via telephone or in clinic to assess response to therapy. A follow-up appointment was made during today's visit. Orders: Orders FL guidance in treatment room Today M47.812 - Spondylosis without myelopathy or radiculopathy, cervical region Coding Level of Care Code Procedure Only Diagnoses Spondylosis of cervical spine M47.812 CPT Codes Facet Injection Cervical/Thoracic - CPT: 22293 - second level, with Fluoroscopy ([id number])
[2024-01-11 07:48] VITALS: BP 126/84; PULSE 79; RESP 18; O2SAT 99; BMI 45.9
== END 2024-01-11 08:50 | disposition home or self-care (01) ==
LOC: HO.PMCPRC 07:47
PROVIDERS: PCP Internal Medicine; Visit Provider Internal Medicine
DX: M47.812 Spondylosis without myelopathy or radiculopathy, cervical region (principal)
CPT/HCPCS: 64490; 64491

== ENCOUNTER 2024-01-18 06:08 | Outpatient (REF) | payer MEDICAID, SELFPAY ==
--- NOTE | ~2024-01-18 | FL_ITS ---
EXAMINATION: XR FLUOROSCOPY WITH IMAGES CLINICAL INFORMATION: Cervical spondylosis. COMPARISON: None available. TECHNIQUE: Fluoroscopy Supervised By: Dr. Rome Giron. Fluoroscopy Time: 0.2 minutes. Cumulative Dose: 1.38 mGy. DAP: 0.0178 Gy-cm2. Images: 2. FINDINGS: Intraoperative fluoroscopy and spot films were performed during a procedure in the OR. Epidural needles are present at C3, C4 and C5 on the right. Contrast media is seen injected around the tips of the needles. Please correlate with Dr. Rome Giron' report for complete details. FL/FL guidance in treatment room IMPRESSION: Intraoperative fluoroscopy and spot films were obtained. Please see Dr. Rome Giron' report for complete details.
== END 2024-01-18 06:09 | disposition home or self-care (01) ==
LOC: CF 06:08
PROVIDERS: Visit Provider Internal Medicine
DX: M47.812 Spondylosis without myelopathy or radiculopathy, cervical region (principal)
CPT/HCPCS: 64490; 64491; J2795; Q9967

== ENCOUNTER 2024-01-18 07:51 | Outpatient (AMB) | payer MEDICAID, SELFPAY ==
--- NOTE | 2024-01-18 08:02 | A.OFFVIS_ITS ---
Vital Signs 01/18/24 08:08 01/18/24 08:46 Height 5 ft 11 in Weight 329 lb BMI 45.9 BP 134/84 132/72 Blood Pressure Location Lt brachial Lt brachial Position Sitting Sitting Respiration 20 18 Pulse 72 76 Pulse Source Pulse Oximeter Pulse Oximeter Pulse Oximetry (%) 99 97 Oxygen Delivery Method Room Air Room Air Comment Pre-Op Post-Op Intake Visit Reasons: right Dx C4-C5-C6 MBB Allergies latex Allergy (Verified 12/29/23 09:05) unknown peanut Allergy (Verified 12/29/23 09:05) Unknown Penicillins [PCN] Allergy (Verified 12/29/23 09:05) Hives amoxicillin Adverse Reaction (Verified 12/29/23 09:05) Unknown hydrocodone Adverse Reaction (Verified 12/29/23 09:05) unknown oxycodone Adverse Reaction (Verified 12/29/23 09:05) Unknown HPI HPI right Dx C4-C5-C6 MBB: Details: Patient presents for scheduled procedure. Denies any recent cough, cold, infection, fever or other significant changes in medical history since last office visit. [facility] Medical History Post traumatic stress disorder (PTSD) MDD (major depressive disorder), recurrent episode, moderate Anxiety Spondylosis of cervical spine Cholecystectomy planned Obesity Depression DJD (degenerative joint disease), thoracic Back pain Arthritis, rheumatoid Asthma Hypertension Surgical History H/O arthroscopy of shoulder Social History Household Members: Family Housing: House Do you presently have visiting nurse or other home services: No Patient Tobacco Use Status: Never used Tobacco e-Cigarette/Vaping Use: Never Used service: No Sexual orientation: Straight/Heterosexual Physical Exam Vital Signs: Last Vital Signs Pulse 76 01/18/24 08:46 Resp 18 01/18/24 08:46 BP 132/72 01/18/24 08:46 Pulse Ox 97 01/18/24 08:46 Oxygen Delivery Method Room Air 01/18/24 08:46 BMI result Body Mass Index 45.9 Office Procedures Cervical/Thoracic Facet Inj Details: Diagnostic Cervical Medial Branch Block, Right C3, C4, C5 medial branches After obtaining written consent, pre-procedure blood pressure and pulse were recorded and are in the nursing record for review. The patient was placed in a lateral position. The respective cervical area was prepped with chloraprep and draped in sterile fashion. The skin over the target medial branch nerves was anesthetized with 0.5% lidocaine. A 25 gauge 1.5 inch needle was inserted into the target medial branch nerve under fluoroscopic guidance. No paresthesias were elicited with needle placement and aspiration was negative for blood and CSF. Next, 0.2cc of omnipaque 180 was injected to verify positioning. Next 0.75 ml 0.5% ropivicaine was injected (0.75 cc total per level). The identical procedure was performed at the remaining levels. The skin was cleansed and a sterile bandage was applied. Following the procedure the patient's vital signs were stable. The patient tolerated the procedure well and no complications were encountered. Following the procedure the patient's vital signs were stable. The patient was discharged home in good condition with post-procedural instructions. Time Out: Immediately prior to the procedure, the following was verbally confirmed that there is a signed consent form and that the correct patient, planned procedure, site and side are consistent with documentation and that necessary equipment and/or blood products are available prior to the start of the case. Complications: none EBL: <5 cc 22795 - second level, with Fluoroscopy Procedure code (CPT) selection complete Assessment & Plan Assessment & Plan (1) Spondylosis of cervical spine: Code(s): M47.812 - Spondylosis without myelopathy or radiculopathy, cervical region Category: Medical Plan Patient is status post right C3, C4, C5 diagnostic medial branch blocks. Patient tolerated procedure well and was discharged home in stable condition with discharge instructions. All questions were answered. We will follow-up via telephone or in clinic to assess response to therapy. A follow-up appointment was made during today's visit. Orders: Orders FL guidance in treatment room Today M47.812 - Spondylosis without myelopathy or radiculopathy, cervical region Coding Level of Care Code Procedure Only Diagnoses Spondylosis of cervical spine M47.812 CPT Codes Facet Injection Cervical/Thoracic - CPT: 01053 - second level, with Fluoroscopy ([id number])
[2024-01-18 08:08] VITALS: BP 134/84; PULSE 72; RESP 20; O2SAT 99; BMI 45.9
[2024-01-18 08:46] VITALS: BP 132/72; PULSE 76; RESP 18; O2SAT 97
== END 2024-01-18 08:41 | disposition home or self-care (01) ==
PROVIDERS: PCP Internal Medicine; Visit Provider Internal Medicine
DX: M47.812 Spondylosis without myelopathy or radiculopathy, cervical region (principal)
CPT/HCPCS: 64490; 64491

== ENCOUNTER 2024-01-19 16:32 | Outpatient (REF) | payer MEDICAID, SELFPAY | END 2024-01-19 16:33 | disposition home or self-care (01) | LOC: HO.MRI 16:32 | PROVIDERS: PCP Internal Medicine; Visit Provider Internal Medicine | DX: Z13.89 Encounter for screening for other disorder (principal) ==

== ENCOUNTER 2024-01-24 08:52 | Outpatient (AMB) | payer MEDICAID, SELFPAY ==
--- NOTE | 2024-01-24 08:56 | MHC.OFFVIS ---
Vital Signs 01/24/24 08:57 Height 5 ft 11 in Weight 324 lb BMI 45.2 BP 130/86 Blood Pressure Location Lt radial Position Sitting Respiration 14 Pulse 92 Pulse Source Pulse Oximeter Pulse Oximetry (%) 99 Oxygen Delivery Method Room Air Intake Visit Reasons: s/p charity Dx C4-C5-C6 MBB & (L) Shoulder Inj Allergies latex Allergy (Verified 01/24/24 09:00) unknown peanut Allergy (Verified 01/24/24 09:00) Unknown Penicillins [PCN] Allergy (Verified 01/24/24 09:00) Hives amoxicillin Adverse Reaction (Verified 01/24/24 09:00) Unknown hydrocodone Adverse Reaction (Verified 01/24/24 09:00) unknown oxycodone Adverse Reaction (Verified 01/24/24 09:00) Unknown Medication List - Last Reconciled 01/24/24 by Mer Cornejo LPN albuterol 90 mcg/actuation 90 mcg inhalation cyclobenzaprine 5 mg PO TID PRN 7 days dulaglutide (Trulicity) 4.5 mg subcut QWEEK fluticasone propionate 50 mcg/actuation (Flonase Allergy Relief) 2 sprays intranasal DAILY tadalafil 20 mg PO DAILY PRN testosterone cypionate 200 mg IM QWEEK HPI HPI s/p charity Dx C4-C5-C6 MBB & (L) Shoulder Inj: Details: 43-year-old male who presents to the office for status post bilateral diagnostic C4-C5-C6 medial branch block and left shoulder injection. He reports about 80% pain relief in the neck pain. Patient presents for scheduled procedure. Denies any recent cough, cold, infection, fever or other significant changes in medical history since last office visit. Past Procedure: 01/11/24: Diagnostic Cervical Medial Branch Block, Right C3, C4, C5 medial branches: 80% relief 11/30/23: Radiofrequency lesioning medial branch nerves, Left L3, L4 medial branches and L5 dorsal ramus (L4/5 and L5/S1) (2 levels, 3 nerves): 50% relief. 11/09/23: Radiofrequency lesioning medial branch nerves, Right L3, L4 medial branches and L5 dorsal ramus (L4/5 and L5/S1) (2 levels, 3 nerves): 50% relief. 10/23/23: Right acromioclavicular joint injection, under ultrasound guidance: % relief. 10/19/23: Lumbar Medial Branch Block, L3, L4 medial branches (1 level, 2 nerves): 50% relief. 10/09/23: Trigger point injections: 50% relief. 02/10/23: Trigger point injections: 50% relief for several weeks. 01/06/2023: Trigger point injection: 50% relief for 2 weeks 12/02/2022: Trigger point injection: 50% relief for several days. 10/21/2022: Trigger point injection given to bilateral cervical paraspinal, trapezius, and thoracic rhomboid muscles: 50% relief. 08/10/22: Sprint Trial Implant ? 50% relief overall, worse since device removal. 07/13/22: Right L2-L3 Diagnostic MBBs - >50% relief. [facility] Medical History Post traumatic stress disorder (PTSD) MDD (major depressive disorder), recurrent episode, moderate Anxiety Spondylosis of cervical spine Cholecystectomy planned Obesity Depression DJD (degenerative joint disease), thoracic Back pain Arthritis, rheumatoid Asthma Hypertension Surgical History H/O arthroscopy of shoulder Social History Household Members: Family Housing: House Do you presently have visiting nurse or other home services: No Patient Tobacco Use Status: Never used Tobacco e-Cigarette/Vaping Use: Never Used service: No Sexual orientation: Straight/Heterosexual Review of Systems Const All systems reviewed & are unremarkable except as noted in HPI and below Physical Exam Vital Signs: Last Vital Signs Pulse 92 01/24/24 08:57 Resp 14 01/24/24 08:57 BP 130/86 01/24/24 08:57 Pulse Ox 99 01/24/24 08:57 Oxygen Delivery Method Room Air 01/24/24 08:57 BMI result Body Mass Index 45.2 General: Appears afebrile. Alert and oriented. Mood and affect appropriate. Follows and participates in conversation appropriately. Respiratory effort is unlabored. Able to transition from sit to stand unassisted. Office Procedures Joint Injection/Drain Joint Injection/Drain Details: Left shoulder acromioclavicular shoulder injection, US guided Primary Site: left shoulder (left shoulder AC joint injection) Prep: site was prepped using sterile technique Injected: 40 mg of, Kenalog and with 1 mL of (ropivacaine 0.5%) Approach Used: anterior Procedure: The patient tolerated the procedure well Coding Details: An ultrasound image of the injection was taken and stored in the permanent record. - Acromioclavicular with ultrasound guidance (Left, US guided) Procedure code (CPT) selection complete Results Reviewed Results Reviewed: No imaging is available for review Assessment & Plan Assessment & Plan (1) Acromioclavicular joint arthritis: Code(s): M19.019 - Primary osteoarthritis, unspecified shoulder Category: Medical Plan Patient is status post left shoulder AC joint injection. Patient tolerated procedure well and was discharged home in stable condition with discharge instructions. All questions were answered. We will follow-up via telephone or in clinic to assess response to therapy. A follow-up appointment was made during today's visit. We will schedule for a diagnostic bilateral C3-C4-C5 medial branch block injection. Discussed the risks and benefits of the procedure with the patient in detail. All questions were answered. The patient is on board with the plan. Justification for interventional therapy: ? Patient with average pain > 6/10 ? Patient has exhausted conservative therapy Scribed for Dr. Giron by Anisa White medical transcription supervisor, on 01/24/2024. I, Dr. Giron, have personally reviewed and agree with the information entered by the scribe. Coding Level of Care Code Est Pt Level 3 (07099) Diagnoses Acromioclavicular joint arthritis M19.019 CPT Codes Coding - Joint 6: - Acromioclavicular with ultrasound guidance ([id number])
[2024-01-24 08:57] VITALS: BP 130/86; PULSE 92; RESP 14; O2SAT 99; BMI 45.2
== END 2024-01-24 09:17 | disposition home or self-care (01) ==
PROVIDERS: PCP Internal Medicine; Visit Provider Internal Medicine
DX: M19.012 Primary osteoarthritis, left shoulder (principal)
CPT/HCPCS: 20606

== ENCOUNTER → 2024-01-24 08:52 | Outpatient (BNVA) | payer MEDICAID, SELFPAY | PROVIDERS: PCP Internal Medicine; Visit Provider Internal Medicine | DX: M19.019 Primary osteoarthritis, unspecified shoulder (principal); M25.512 Pain in left shoulder | CPT/HCPCS: 20606; J3301 ==

== ENCOUNTER 2024-02-01 06:10 | Outpatient (REF) | payer MEDICAID, SELFPAY ==
--- NOTE | ~2024-02-01 | FL_ITS ---
EXAMINATION: XR FLUOROSCOPY WITH IMAGES CLINICAL INFORMATION: Cervical spondylosis. COMPARISON: None available. TECHNIQUE: Fluoroscopy Supervised By: Dr. Giron. Fluoroscopy Time: 0.4 min. Cumulative Dose: 9.57 mGy. DAP: 1.56 Gycm2. Images: 4. FINDINGS: Intraoperative fluoroscopy and spot films were performed during a procedure in the OR. Carpenter are present at C3, C4 and C5 in the cervical region, both on the right and the left. Contrast is seen around the needle tips bilaterally. Please correlate with Dr. Giron' report for complete details. FL/FL guidance in treatment room IMPRESSION: Intraoperative fluoroscopy and spot films were obtained. Please see Mack' report for complete details.
== END 2024-02-01 06:11 | disposition home or self-care (01) ==
LOC: CF 06:10
PROVIDERS: Visit Provider Internal Medicine
DX: M47.812 Spondylosis without myelopathy or radiculopathy, cervical region (principal)
CPT/HCPCS: 64490; 64491; J2795; Q9967

== ENCOUNTER 2024-02-01 08:00 | Outpatient (RCR) | payer MEDICAID, SELFPAY ==
--- NOTE | 2024-01-02 09:36 | MHC.PT.EP ---
[facility] [place] [facility] [place] [facility] [place] [facility] [address] Sarah Nino [address] [phone] F: [phone] F: [phone] F: [phone] F: [phone] Physical Therapy Plan of Care Date of Evaluation: 01/02/24 Date of Surgery: Diagnosis: This is a 43 yo male presenting to skilled PT with a script for cervical radiculopathy. Assessment: This is a 43 yo male presenting to skilled PT with a script for cervical radiculopathy. He is being followed by [facility] pain management for lumbar and cervical pain and has been seeing them for many years. The last note states: For his cervical radicular for his cervical axial symptoms, we will proceed with a round of diagnostic cervical medial branch blocks left first followed by right one week later, at C4-5-6 level. Discussed the risks and benefits of the procedure with the patient in detail. All questions were answered. The patient is on board with the plan. Patient is here today reporting cervical symptoms ongoing now since work [place] luggage that was not labeled properly. Pain is described as squeezing, deep bone pain , pulling. Pain radiates to shoulders and down the back. He does not have any consistent pain patterns as he reports his pain is everywhere. His pain is described as constant and always 8-9/10. Pain increases with any movement, up/down, side to side, cooking, standing for long periods and sleeping. He has tried a new pillow, PT (helped a little), injections (RFA and diagnostic) and critical care unit nurse. The last time he had PT was in 2018/2019. He is here today hoping to get approval for injections and imaging. He does not have a follow up appointment with pain management yet, I encouraged him to make one as his goals are related to this departments scope of practice. Assessment reveals pain that ranges from up to a 8/10 at the worst. Patient demos decreased shoulder and cervical ROM, strength of B shoulder's and upper back as well as core, TTP at cervical surrounding soft tissues, UT and impaired posture with forward head and rounded shoulders. Based on functional limitations, impaired QOL and pain tolerance patient is a good candidate for skilled PT 2x/wk for 4wks. Frequency and Duration: The patient will be seen 2x/wk for 4wks Short Term Goals: (in 2 wks) I in HEP Improve cervical ROM by at least 25% Demo proper cervical positioning with progression of UB strengthening exercises without cues from PT Privacy Officer Goals: (in 4 wks) Report 50% improvement in QOL Tolerate sleeping through the night without waking from pain Improve NDI by 10 points Improve pain to no more than 2/10 at the worst Treatment Plan: Modalities to reduce pain, spasms and effusion. Manual therapy to restore motion and function. Therapeutic exercise to improve strength and flexibility. Neuromuscular re-education for posture and balance. Therapeutic activities to return to functional activities of daily living. Electronically signed by: Bernie Salmeron PT Please sign and return to therapist. Thank you for your referral.
--- NOTE | 2024-02-12 08:31 | MHC.PT.DC ---
[facility] [place] Office [place] Office [address] Sarah Nino [address] [phone] F: [phone] F: [phone] F: [phone] F: [phone] Physical Therapy Discharge Report Diagnosis: This is a 43 yo male presenting to skilled PT with a script for cervical radiculopathy. Date of Surgery: Date of Evaluation: 01/02/24 Date of Discharge: 02/12/24 Treatments to Date: 10 Cancellations to Date: 0 No Shows to Date: 0 Discharge Status: Independent with HEP Patient Elected to Stop Discharge Summary: Patient came to 10 visits of PT and has gotten his injections which was his primary goal for PT. He is I in his HEP but continued to have pain. DC to HEP. Electronically signed by: Bernie Salmeron, PT Please sign and return to therapist. Thank you for your referral.
== END 2024-02-12 08:32 | disposition home or self-care (01) ==
LOC: HO.PTCHIC 08:00
PROVIDERS: PCP Internal Medicine; Visit Provider Internal Medicine
DX: M54.12 Radiculopathy, cervical region (principal)
CPT/HCPCS: 97110; 97162

== ENCOUNTER 2024-02-01 09:52 | Outpatient (AMB) | payer MEDICAID, SELFPAY ==
--- NOTE | 2024-02-01 09:56 | A.OFFVIS_ITS ---
Vital Signs 02/01/24 10:43 02/01/24 10:44 BP 143/91 H 148/93 H Blood Pressure Location Rt radial Rt radial Position Sitting Sitting Respiration 16 16 Pulse 70 72 Pulse Source Pulse Oximeter Pulse Oximeter Pulse Oximetry (%) 98 99 Oxygen Delivery Method Room Air Room Air Intake Visit Reasons: Drake Dx C3-C4-C5 MBB Allergies latex Allergy (Verified 01/24/24 09:00) unknown peanut Allergy (Verified 01/24/24 09:00) Unknown Penicillins [PCN] Allergy (Verified 01/24/24 09:00) Hives amoxicillin Adverse Reaction (Verified 01/24/24 09:00) Unknown hydrocodone Adverse Reaction (Verified 01/24/24 09:00) unknown oxycodone Adverse Reaction (Verified 01/24/24 09:00) Unknown HPI HPI Drake Dx C3-C4-C5 MBB: Details: Patient presents for scheduled procedure. Denies any recent cough, cold, infection, fever or other significant changes in medical history since last office visit. [facility] Medical History Post traumatic stress disorder (PTSD) MDD (major depressive disorder), recurrent episode, moderate Anxiety Spondylosis of cervical spine Cholecystectomy planned Obesity Depression DJD (degenerative joint disease), thoracic Back pain Arthritis, rheumatoid Asthma Hypertension Surgical History H/O arthroscopy of shoulder Social History Household Members: Family Housing: House Do you presently have visiting nurse or other home services: No Patient Tobacco Use Status: Never used Tobacco e-Cigarette/Vaping Use: Never Used service: No Sexual orientation: Straight/Heterosexual Physical Exam Vital Signs: Last Vital Signs Pulse 72 02/01/24 10:44 Resp 16 02/01/24 10:44 BP 148/93 H 02/01/24 10:44 Pulse Ox 99 02/01/24 10:44 Oxygen Delivery Method Room Air 02/01/24 10:44 Office Procedures Cervical/Thoracic Facet Inj Details: Diagnostic Cervical Medial Branch Block, bilateral C3, C4, C5 medial branches After obtaining written consent, pre-procedure blood pressure and pulse were recorded and are in the nursing record for review. The patient was placed in a lateral position. The respective cervical area was prepped with chloraprep and draped in sterile fashion. The skin over the target medial branch nerves was anesthetized with 0.5% lidocaine. A 25 gauge 1.5 inch needle was inserted into the target medial branch nerve under fluoroscopic guidance. No paresthesias were elicited with needle placement and aspiration was negative for blood and CSF. Next, 0.2cc of omnipaque 180 was injected to verify positioning. Next 0.5 ml 0.5% ropivicaine was injected (0.5 cc total per level). The identical procedure was performed at the remaining levels. The skin was cleansed and a sterile bandage was applied. Following the procedure the patient's vital signs were stable. The patient tolerated the procedure well and no complications were encountered. Following the procedure the patient's vital signs were stable. The patient was discharged home in good condition with post-procedural instructions. Time Out: Immediately prior to the procedure, the following was verbally confirmed that there is a signed consent form and that the correct patient, planned procedure, site and side are consistent with documentation and that necessary equipment and/or blood products are available prior to the start of the case. Complications: none EBL: <5 cc 82189 - with Fluoroscopy 81603 - second level, with Fluoroscopy (bilateral) Procedure code (CPT) selection complete Assessment & Plan Assessment & Plan (1) Spondylosis of cervical spine: Code(s): M47.812 - Spondylosis without myelopathy or radiculopathy, cervical region Category: Medical Plan Patient is status post bilateral C3, C4, C5 diagnostic medial branch blocks. Patient tolerated procedure well and was discharged home in stable condition with discharge instructions. All questions were answered. We will follow-up via telephone or in clinic to assess response to therapy. A follow-up appointment was made during today's visit. Orders: Orders FL guidance in treatment room Today M47.812 - Spondylosis without myelopathy or radiculopathy, cervical region Coding Level of Care Code Procedure Only Diagnoses Spondylosis of cervical spine M47.812 CPT Codes Facet Injection Cervical/Thoracic - CPT: 55263 - with Fluoroscopy ([id number]) Facet Injection Cervical/Thoracic - CPT: 82068 - second level, with Fluoroscopy ([id number])
[2024-02-01 10:43] VITALS: BP 143/91; PULSE 70; RESP 16; O2SAT 98
[2024-02-01 10:44] VITALS: BP 148/93; PULSE 72; RESP 16; O2SAT 99
== END 2024-02-01 11:05 | disposition home or self-care (01) ==
LOC: HO.PMCPRC 09:52
PROVIDERS: PCP Internal Medicine; Referring Provider Internal Medicine; Visit Provider Internal Medicine
DX: M47.812 Spondylosis without myelopathy or radiculopathy, cervical region (principal)
CPT/HCPCS: 64490; 64491

== ENCOUNTER → 2024-02-02 11:45 | Outpatient (BNVA) | payer MEDICAID, SELFPAY | PROVIDERS: PCP Internal Medicine; Visit Provider Internal Medicine | DX: M47.812 Spondylosis without myelopathy or radiculopathy, cervical region (principal) | CPT/HCPCS: 99212 ==

== ENCOUNTER 2024-02-15 06:23 | Outpatient (REF) | payer MEDICAID, SELFPAY ==
--- NOTE | ~2024-02-15 | FL_ITS ---
EXAMINATION: XR FLUOROSCOPY WITH IMAGES CLINICAL INFORMATION: Cervical radiculopathy. COMPARISON: None available. TECHNIQUE: Fluoroscopy Supervised By: Dr. Giron Fluoroscopy Time: 0.4 minutes Cumulative Dose: 4.21 mGy DAP: 0.0527 Gy-cm2 Images: 2. FINDINGS: Intraoperative fluoroscopy and spot films were performed during a procedure in the OR. Probe/needles are seen at 3 consecutive levels in the left cervical spine. Precise levels can not be ascertained secondary to marked coning of the images with lack of appropriate landmarks. Please correlate with Dr. Giron' report for complete details. FL/FL guidance in treatment room IMPRESSION: Intraoperative fluoroscopy and spot films were obtained. Please see Dr. Giron' report for complete details.
== END 2024-02-15 06:24 | disposition home or self-care (01) ==
LOC: CF 06:23
PROVIDERS: Visit Provider Internal Medicine
DX: M54.12 Radiculopathy, cervical region (principal); M47.812 Spondylosis without myelopathy or radiculopathy, cervical region
CPT/HCPCS: 64633; 64634; J2795

== ENCOUNTER 2024-02-15 13:01 | Outpatient (AMB) | payer MEDICAID, SELFPAY ==
--- NOTE | 2024-02-15 13:01 | A.OFFVIS_ITS ---
Vital Signs 02/15/24 13:11 02/15/24 13:57 BP 123/69 154/91 H Blood Pressure Location Rt brachial Lt radial Position Sitting Sitting Pulse 84 82 Pulse Source Pulse Oximeter Pulse Oximeter Pulse Oximetry (%) 96 99 Oxygen Delivery Method Room Air Room Air Comment pre-op post-op Intake Visit Reasons: Left C3-C4-C5 RFA Allergies latex Allergy (Verified 01/24/24 09:00) unknown peanut Allergy (Verified 01/24/24 09:00) Unknown Penicillins [PCN] Allergy (Verified 01/24/24 09:00) Hives amoxicillin Adverse Reaction (Verified 01/24/24 09:00) Unknown hydrocodone Adverse Reaction (Verified 01/24/24 09:00) unknown oxycodone Adverse Reaction (Verified 01/24/24 09:00) Unknown HPI HPI Left C3-C4-C5 RFA: Details: Patient presents for scheduled procedure. Denies any recent cough, cold, infection, fever or other significant changes in medical history since last office visit. [facility] Medical History Post traumatic stress disorder (PTSD) MDD (major depressive disorder), recurrent episode, moderate Anxiety Spondylosis of cervical spine Cholecystectomy planned Obesity Depression DJD (degenerative joint disease), thoracic Back pain Arthritis, rheumatoid Asthma Hypertension Surgical History H/O arthroscopy of shoulder Social History Household Members: Family Housing: House Do you presently have visiting nurse or other home services: No Patient Tobacco Use Status: Never used Tobacco e-Cigarette/Vaping Use: Never Used service: No Sexual orientation: Straight/Heterosexual Physical Exam Vital Signs: Last Vital Signs Pulse 82 02/15/24 13:57 BP 154/91 H 02/15/24 13:57 Pulse Ox 99 02/15/24 13:57 Oxygen Delivery Method Room Air 02/15/24 13:57 Office Procedures Details: Radiofrequency lesioning medial branch nerves, LEFT, C4, C5, C6 medial branches (2 levels, 3 nerves) After obtaining written consent, pre-procedure blood pressure and heart rate were stable and recorded in the nursing record. The patient was placed in the prone position. The cervical area was prepped with chloraprep and draped in sterile fashion. The skin over the target for each medial branch nerve was anesthetized with 0.5% lidocaine. An 18 gauge radiofrequency cannula was advanced to each target site under fluoroscopic guidance. No paresthesias were elicited with needle placement and aspiration was negative for heme and CSF. Impedences were verified under 600 ohms. Motor testing (2 Hz) confirmed needle placement at each site within the appropriate voltage thresholds. Each site was injected with 0.5 ml 2% preservative-free lidocaine. Radiofrequency lesioning was performed for 90 seconds at 90 deg Celcius. Each site was then injected with 0.5ml ropivacaine 0.5%. The needle was removed, skin cleansed and a sterile bandage was applied. The patient tolerated the procedure well and no complications were encountered. Following the procedure the patient's vital signs were stable. The patient was discharged home in good condition with post- procedural instructions. Time Out: Immediately prior to the procedure, the following was verbally confirmed that there is a signed consent form and that the correct patient, planned procedure, site and side are consistent with documentation and that necessary equipment and/or blood products are available prior to the start of the case. Complications: none EBL: <5 cc 32215 - RFA Cervical Medial Branches 75824 - Cervical Medial Branches ADDNL Procedure code (CPT) selection complete Cervical/Thoracic Facet Inj Procedure code (CPT) selection complete Office Meds lidocaine (PF) 50 mg/5 mL (1 %) injection syringe Performing Provider: Jenna Peters APRN, RAFAEL Performing Location: [facility] Documented (not given) by: Rome Giron MD on 02/15/24 15:15 Dose Route Admin Location Dispensed Lot Number Expiration Date [facility] Drama Teacher 5 mL Infiltration mL ropivacaine (PF) 5 mg/mL (0.5 %) injection solution Performing Provider: Jenna Peters APRN, RAFAEL Performing Location: [facility] Documented (not given) by: Rome Giron MD on 02/15/24 15:15 Dose Route Admin Location Dispensed Lot Number Expiration Date [facility] Drama Teacher 5 mg subcut mL Assessment & Plan Assessment & Plan (1) Spondylosis of cervical spine: Code(s): M47.812 - Spondylosis without myelopathy or radiculopathy, cervical region Category: Medical Plan Patient is status post left C4, C5, C6 branch radiofrequency ablation. Patient tolerated procedure well and was discharged home in stable condition with discharge instructions. All questions were answered. We will follow-up via telephone or in clinic to assess response to therapy. A follow-up appointment was made during today's visit. Orders: Orders FL guidance in treatment room Today Rome Giron MD M54.12 - Radiculopathy, cervical region AMB RFA Radiofrequency Ablation Pain Management Today Jenna Peters APRN, BOTTOM HOOP DRIVER M47.816 - Spondylosis without myelopathy or radiculopathy, lumbar region Medications: New ropivacaine (PF) 5 mg subcut ONCE 1 mL 0RF Rome Giron MD M47.816 - Spondylosis without myelopathy or radiculopathy, lumbar region lidocaine (PF) 5 mL Infiltration ONCE 5 mL 0RF Rome Giron MD M47.816 - Spondylosis without myelopathy or radiculopathy, lumbar region Coding Level of Care Code Procedure Only Diagnoses Spondylosis of cervical spine M47.812 CPT Codes Radiofrequency Ablation - Rad-Ablation 1: 00723 - RFA Cervical Medial Branches ([id number]) Radiofrequency Ablation - Rad-Ablation 2: 01842 - Cervical Medial Branches ADDNL ([id number])
[2024-02-15 13:11] VITALS: BP 123/69; PULSE 84; O2SAT 96
[2024-02-15 13:57] VITALS: BP 154/91; PULSE 82; O2SAT 99
== END 2024-02-15 13:46 | disposition home or self-care (01) ==
LOC: HO.PMCPRC 13:01
PROVIDERS: PCP Internal Medicine; Referring Provider Internal Medicine; Visit Provider Internal Medicine
DX: M47.812 Spondylosis without myelopathy or radiculopathy, cervical region (principal)
CPT/HCPCS: 64633; 64634

== ENCOUNTER 2024-02-22 06:17 | Outpatient (REF) | payer MEDICAID, SELFPAY ==
--- NOTE | ~2024-02-22 | FL_ITS ---
EXAMINATION: XR FLUOROSCOPY WITH IMAGES CLINICAL INFORMATION: Cervical spondylosis. COMPARISON: None available. TECHNIQUE: Fluoroscopy Supervised By: Dr. Rome Giron. Fluoroscopy Time: 0.6 minutes. Cumulative Dose: 5.85 mGy. DAP: 0.0508 Gy-cm2. Images: 4. FINDINGS: Intraoperative fluoroscopy and spot films were performed during a procedure in the OR. Probes are present at 3 consecutive levels in the cervical spine on the right, likely C3, C4 and C5. However, levels can not be ascertained with any certainty secondary to marked coning of the images with lack of appropriate landmarks. Please correlate with Dr. Rome Giron' report for complete details. FL/FL guidance in treatment room IMPRESSION: Intraoperative fluoroscopy and spot films were obtained. Please see Dr. Rome Giron' report for complete details in addition to the levels which were treated.
== END 2024-02-22 06:18 | disposition home or self-care (01) ==
LOC: CF 06:17
PROVIDERS: Visit Provider Internal Medicine
DX: M47.812 Spondylosis without myelopathy or radiculopathy, cervical region (principal)
CPT/HCPCS: 64633; 64634; J2795

== ENCOUNTER 2024-02-22 08:56 | Outpatient (AMB) | payer MEDICAID, SELFPAY ==
[2024-02-22 08:57] VITALS: BP 135/100; PULSE 74; RESP 16; O2SAT 98; BMI 45.6
--- NOTE | 2024-02-22 08:57 | A.OFFVIS_ITS ---
Vital Signs 02/22/24 08:57 02/22/24 10:00 Height 5 ft 11 in Weight 327 lb BMI 45.6 BP 135/100 H 162/92 H Blood Pressure Location Rt brachial Rt brachial Position Sitting Sitting Respiration 16 16 Pulse 74 79 Pulse Source Pulse Oximeter Pulse Oximeter Pulse Oximetry (%) 98 96 Oxygen Delivery Method Room Air Comment Pre-Op Intake Visit Reasons: Right C3-C4-C5 RFA Nuclear Medical Tech Required: No Accompanied by: Self / Same As Patient Allergies latex Allergy (Verified 02/22/24 08:58) unknown peanut Allergy (Verified 02/22/24 08:58) Unknown Penicillins [PCN] Allergy (Verified 02/22/24 08:58) Hives amoxicillin Adverse Reaction (Verified 02/22/24 08:58) Unknown hydrocodone Adverse Reaction (Verified 02/22/24 08:58) unknown oxycodone Adverse Reaction (Verified 02/22/24 08:58) Unknown HPI HPI Right C3-C4-C5 RFA: Details: Patient presents for scheduled procedure. Denies any recent cough, cold, infection, fever or other significant changes in medical history since last office visit. [facility] Medical History Post traumatic stress disorder (PTSD) MDD (major depressive disorder), recurrent episode, moderate Anxiety Spondylosis of cervical spine Cholecystectomy planned Obesity Depression DJD (degenerative joint disease), thoracic Back pain Arthritis, rheumatoid Asthma Hypertension Surgical History H/O arthroscopy of shoulder Social History Household Members: Family Housing: House Do you presently have visiting nurse or other home services: No Patient Tobacco Use Status: Never used Tobacco e-Cigarette/Vaping Use: Never Used service: No Sexual orientation: Straight/Heterosexual Physical Exam Vital Signs: Last Vital Signs Pulse 79 02/22/24 10:00 Resp 16 02/22/24 10:00 BP 162/92 H 02/22/24 10:00 Pulse Ox 96 02/22/24 10:00 Oxygen Delivery Method Room Air 02/22/24 08:57 BMI result Body Mass Index 45.6 Office Procedures Details: Radiofrequency lesioning medial branch nerves, RIGHT, C4, C5, C6 medial branches (2 levels, 3 nerves) After obtaining written consent, pre-procedure blood pressure and heart rate were stable and recorded in the nursing record. The patient was placed in the prone position. The cervical area was prepped with chloraprep and draped in sterile fashion. The skin over the target for each medial branch nerve was anesthetized with 0.5% lidocaine. An 18 gauge radiofrequency cannula was advanced to each target site under fluoroscopic guidance. No paresthesias were elicited with needle placement and aspiration was negative for heme and CSF. Impedences were verified under 600 ohms. Motor testing (2 Hz) confirmed needle placement at each site within the appropriate voltage thresholds. Each site was injected with 0.5 ml 2% preservative-free lidocaine. Radiofrequency lesioning was performed for 90 seconds at 90 deg Celcius. Each site was then injected with 0.5ml ropivacaine 0.5%. The needle was removed, skin cleansed and a sterile bandage was applied. The patient tolerated the procedure well and no complications were encountered. Following the procedure the patient's vital signs were stable. The patient was discharged home in good condition with post- procedural instructions. Time Out: Immediately prior to the procedure, the following was verbally confirmed that there is a signed consent form and that the correct patient, planned procedure, site and side are consistent with documentation and that necessary equipment and/or blood products are available prior to the start of the case. Complications: none EBL: <5 cc 40230 - RFA Cervical Medial Branches 84102 - Cervical Medial Branches ADDNL Procedure code (CPT) selection complete Office Meds lidocaine (PF) 50 mg/5 mL (1 %) injection syringe Performing Provider: Rome Giron MD Performing Location: [facility] [place] [facility] Documented (not given) by: Rome Giron MD on 02/22/24 10:14 Dose Route Admin Location Dispensed Lot Number Expiration Date [facility] Micro Computer Specialist 5 mL Infiltration mL ropivacaine (PF) 5 mg/mL (0.5 %) injection solution Performing Provider: Rome Giron MD Performing Location: [facility] [place] [facility] Documented (not given) by: Rome Giron MD on 02/22/24 10:14 Dose Route Admin Location Dispensed Lot Number Expiration Date [facility] Micro Computer Specialist 5 mg subcut mL Assessment & Plan Assessment & Plan (1) Spondylosis of cervical spine: Code(s): M47.812 - Spondylosis without myelopathy or radiculopathy, cervical region Category: Medical Plan Patient is status post right C4, C5, C6 medial branch radiofrequency ablation. Patient tolerated procedure well and was discharged home in stable condition with discharge instructions. All questions were answered. We will follow-up via telephone or in clinic to assess response to therapy. A follow-up appointment was made during today's visit. Orders: Orders FL guidance in treatment room Today Jenna Peters, OUTSIDE BARREL LATHE OPERATOR, BUDGET ASSISTANT M47.812 - Spondylosis without myelopathy or radiculopathy, cervical region AMB RFA Radiofrequency Ablation Pain Management Today Rome Giron MD M47.812 - Spondylosis without myelopathy or radiculopathy, cervical region Medications: New ropivacaine (PF) 5 mg subcut ONCE 1 mL 0RF Rome Giron MD M47.812 - Spondylosis without myelopathy or radiculopathy, cervical region lidocaine (PF) 5 mL Infiltration ONCE 5 mL 0RF Rome Giron MD M47.812 - Spondylosis without myelopathy or radiculopathy, cervical region Coding Level of Care Code Procedure Only Diagnoses Spondylosis of cervical spine M47.812 CPT Codes Radiofrequency Ablation - Rad-Ablation 1: 39672 - RFA Cervical Medial Branches ([id number]) Radiofrequency Ablation - Rad-Ablation 2: 51441 - Cervical Medial Branches ADDNL ([id number])
[2024-02-22 10:00] VITALS: BP 162/92; PULSE 79; RESP 16; O2SAT 96
== END 2024-02-22 10:00 | disposition home or self-care (01) ==
LOC: HO.PMCPRC 08:56
PROVIDERS: PCP Internal Medicine; Visit Provider Internal Medicine
DX: M47.812 Spondylosis without myelopathy or radiculopathy, cervical region (principal)
CPT/HCPCS: 64633; 64634

== ENCOUNTER 2024-03-25 09:14 | Outpatient (AMB) | payer MEDICAID, SELFPAY ==
[2024-03-25 09:16] VITALS: BP 120/78; PULSE 80; RESP 14; O2SAT 97; BMI 45.6
--- NOTE | 2024-03-25 09:16 | MHC.OFFVIS ---
Vital Signs 03/25/24 09:16 Height 5 ft 11 in Weight 327 lb BMI 45.6 BP 120/78 Blood Pressure Location Lt radial Position Sitting Respiration 14 Pulse 80 Pulse Source Pulse Oximeter Pulse Oximetry (%) 97 Oxygen Delivery Method Room Air Intake Visit Reasons: s/p charity C3-C4-C5 RFA Allergies latex Allergy (Verified 03/28/24 08:38) unknown peanut Allergy (Verified 03/28/24 08:38) Unknown Penicillins [PCN] Allergy (Verified 03/28/24 08:38) Hives amoxicillin Adverse Reaction (Verified 03/28/24 08:38) Unknown hydrocodone Adverse Reaction (Verified 03/28/24 08:38) unknown oxycodone Adverse Reaction (Verified 03/28/24 08:38) Unknown Medication List - Last Reconciled 03/25/24 by Mer Cornejo LPN albuterol 90 mcg/actuation 90 mcg inhalation cyclobenzaprine 5 mg PO TID PRN 7 days dulaglutide (Trulicity) 4.5 mg subcut QWEEK fluticasone propionate 50 mcg/actuation (Flonase Allergy Relief) 2 sprays intranasal DAILY ketotifen fumarate 0.025%(0.035%) ([place]) 2 drps ophthalmic (eye) DAILY tadalafil 20 mg PO DAILY PRN testosterone cypionate 200 mg IM QWEEK HPI HPI s/p charity C3-C4-C5 RFA: Details: 43-year-old male who presents today to the office for a status post bilateral C3-C4-C5 radiofrequency ablation. The patient reports relief of left-sided symptoms. He still continues to experiences pain on the right side. He has significant resolution of pain in his left side. He also reports pain in the right shoulder region, which does not radiate down to his arm. The shoulder pain has been a longstanding problem. He had a lumbar MRI scan at [facility], which showed facet arthritis and swelling of the small joints. He does weight lifting, stretching, and cardio exercises at gym daily. Past procedures 02/22/24: Radiofrequency lesioning medial branch nerves, RIGHT, C4, C5, C6 medial branches (2 levels, 3 nerves): 20% relief. 02/15/24: Radiofrequency lesioning medial branch nerves, LEFT, C4, C5, C6 medial branches (2 levels, 3 nerves): 80% relief. 02/01/24: Diagnostic Cervical Medial Branch Block, bilateral C3, C4, C5 medial branches: 80% relief. 01/24/24: Left shoulder acromioclavicular shoulder injection, US guided: % relief. 01/18/24: Diagnostic Cervical Medial Branch Block, Right C3, C4, C5 medial branches: % relief. 01/11/24: Diagnostic Cervical Medial Branch Block, Right C3, C4, C5 medial branches: 80% relief 11/30/23: Radiofrequency lesioning medial branch nerves, Left L3, L4 medial branches and L5 dorsal ramus (L4/5 and L5/S1) (2 levels, 3 nerves): 50% relief. 11/09/23: Radiofrequency lesioning medial branch nerves, Right L3, L4 medial branches and L5 dorsal ramus (L4/5 and L5/S1) (2 levels, 3 nerves): 50% relief. 10/23/23: Right acromioclavicular joint injection, under ultrasound guidance: % relief. 10/19/23: Lumbar Medial Branch Block, L3, L4 medial branches (1 level, 2 nerves): 50% relief. 10/09/23: Trigger point injections: 50% relief. 02/10/23: Trigger point injections: 50% relief for several weeks. 01/06/2023: Trigger point injection: 50% relief for 2 weeks 12/02/2022: Trigger point injection: 50% relief for several days. 10/21/2022: Trigger point injection given to bilateral cervical paraspinal, trapezius, and thoracic rhomboid muscles: 50% relief. 08/10/22: Sprint Trial Implant ? 50% relief overall, worse since device removal. 07/13/22: Right L2-L3 Diagnostic MBBs - >50% relief. [facility] Medical History Post traumatic stress disorder (PTSD) MDD (major depressive disorder), recurrent episode, moderate Anxiety Spondylosis of cervical spine Cholecystectomy planned Obesity Depression DJD (degenerative joint disease), thoracic Back pain Arthritis, rheumatoid Asthma Hypertension Surgical History H/O arthroscopy of shoulder Social History Household Members: Family Housing: House Do you presently have visiting nurse or other home services: No Patient Tobacco Use Status: Never used Tobacco e-Cigarette/Vaping Use: Never Used service: No Sexual orientation: Straight/Heterosexual Review of Systems Const All systems reviewed & are unremarkable except as noted in HPI and below Physical Exam Vital Signs: Last Vital Signs Pulse 80 03/25/24 09:16 Resp 14 03/25/24 09:16 BP 120/78 03/25/24 09:16 Pulse Ox 97 03/25/24 09:16 Oxygen Delivery Method Room Air 03/25/24 09:16 BMI result Body Mass Index 45.6 General: Appears afebrile. Alert and oriented. Mood and affect appropriate. Follows and participates in conversation appropriately. Respiratory effort is unlabored. Able to transition from sit to stand unassisted. Ambulates with bilaterally normal heel strike and toe off. Results Reviewed Results Reviewed: 01/29/24: MR SPINE LUMBAR without CONTRAST FINDINGS: Normal lumbar alignment is demonstrated. Vertebral heights are well maintained. Bone marrow signal is within normal limits, and no suspicious osseous lesion is identified. Conus medullaris is unremarkable. Paraspinal soft tissues and visualized portions of the abdomen and pelvis are unremarkable. At L1-2 there is no significant disc herniation or protrusion. No central canal or neural foraminal stenosis is demonstrated. At L2-3 there is no significant disc herniation or protrusion. No central canal or neural foraminal stenosis is demonstrated. At L3-4 concentric disc bulge with mild canal narrowing and ktdx-ia-kcfzxqok bilateral foraminal narrowing. At L4-5 concentric disc bulge with mild canal narrowing and rulv-jf-jzogbidq bilateral foraminal narrowing.. At L5-S1 there is no significant disc herniation or protrusion. No central canal or neural foraminal stenosis is demonstrated. IMPRESSION: 1. Hban-av-wkexbsnh multilevel degenerative disc disease with loss of disc height and disc desiccation seen diffusely throughout the lumbar spine. 2. Vertebral heights are preserved. No malalignments. 3. No high-grade or limiting canal stenosis or disc herniation. 4. No limiting foraminal stenosis at lumbar levels. Multilevel canal and foraminal narrowing appear mild/birx-kv-uwvjmhxk. 5. No STIR signal abnormality to suggest bone marrow edema, soft tissue or ligamentous injury. Assessment & Plan Assessment & Plan (1) Thoracic spondylosis: Code(s): M47.814 - Spondylosis without myelopathy or radiculopathy, thoracic region Category: Medical (2) Cervical radiculopathy: Code(s): M54.12 - Radiculopathy, cervical region Category: Medical (3) Spondylosis of cervical spine: Code(s): M47.812 - Spondylosis without myelopathy or radiculopathy, cervical region Category: Medical Plan For his thoracic spondylosis, we will plan for T9-10-11 facet therapeutic injections as the next step. Discussed the risks and benefits of the procedure with the patient in detail. All questions were answered. The patient is on board with the plan. Justification for interventional therapy: ? Patient with average pain > 6/10 ? Patient has exhausted conservative therapy ? Patient unable to tolerate physical therapy due to pain . Patient has a good understanding of their pain condition and has appropriate mental and social support For his lumbar radicular symptoms, we can consider left parasagittal interlaminar lumbar epidural steroid injection in the future, if his home exercise program is not helpful. For his neck pain if it is not improved in three months. following the RFA, we can consider a temporary PNS trial as well. There is some confusion whether this is coming from his shoulder versus his neck and we can consider both at the time. Scribed for Dr. Giron by Vinicio Booker, medical office manager, on 03/25/2024. I, Dr. Giron, have personally reviewed and agree with the information entered by the scribe. Coding Level of Care Code Est Pt Level 4 (69415) Diagnoses Thoracic spondylosis M47.814 Cervical radiculopathy M54.12 Spondylosis of cervical spine M47.812
== END 2024-03-25 09:49 | disposition home or self-care (01) ==
LOC: HO.PMC 09:14
PROVIDERS: PCP Internal Medicine; Visit Provider Internal Medicine
DX: M47.814 Spondylosis without myelopathy or radiculopathy, thoracic region (principal); M54.12 Radiculopathy, cervical region; M47.812 Spondylosis without myelopathy or radiculopathy, cervical region
CPT/HCPCS: 99214

== ENCOUNTER → 2024-03-25 09:14 | Outpatient (BNVA) | payer MEDICAID, SELFPAY | PROVIDERS: PCP Internal Medicine; Visit Provider Internal Medicine | DX: M47.814 Spondylosis without myelopathy or radiculopathy, thoracic region (principal); M54.12 Radiculopathy, cervical region; M47.812 Spondylosis without myelopathy or radiculopathy, cervical region | CPT/HCPCS: 99212 ==

== ENCOUNTER 2024-03-28 07:34 | Outpatient (REF) | payer MEDICAID, SELFPAY | END 2024-03-28 07:35 | disposition home or self-care (01) | LOC: CF 07:34 | PROVIDERS: Visit Provider Internal Medicine | DX: M47.814 Spondylosis without myelopathy or radiculopathy, thoracic region (principal) | CPT/HCPCS: 64490; 64491; J2795; J3301; Q9967 ==

== ENCOUNTER 2024-03-28 08:23 | Outpatient (AMB) | payer MEDICAID, SELFPAY ==
--- NOTE | 2024-03-28 08:28 | MHC.OFFVIS ---
Vital Signs 03/28/24 08:35 03/28/24 09:18 Height 5 ft 11 in 5 ft 11 in Weight 327 lb 327 lb BMI 45.6 45.6 BP 128/79 148/79 H Blood Pressure Location Lt brachial Lt brachial Position Sitting Sitting Respiration 16 16 Pulse 80 82 Pulse Source Pulse Oximeter Pulse Oximeter Pulse Oximetry (%) 97 99 Oxygen Delivery Method Room Air Room Air Comment pre-op post-op Intake Visit Reasons: charity theraputic T9-T10-T11 facet inj Allergies latex Allergy (Verified 03/28/24 08:38) unknown peanut Allergy (Verified 03/28/24 08:38) Unknown Penicillins [PCN] Allergy (Verified 03/28/24 08:38) Hives amoxicillin Adverse Reaction (Verified 03/28/24 08:38) Unknown hydrocodone Adverse Reaction (Verified 03/28/24 08:38) unknown oxycodone Adverse Reaction (Verified 03/28/24 08:38) Unknown HPI HPI charity theraputic T9-T10-T11 facet inj: Details: Patient presents for therapeutic thoracic medial branch blocks in setting prior history of positive diagnostic thoracic medial branch blocks in [place]. Denies any recent cough, cold, infection, fever or other significant changes in medical history since last office visit. [facility] Medical History Post traumatic stress disorder (PTSD) MDD (major depressive disorder), recurrent episode, moderate Anxiety Spondylosis of cervical spine Cholecystectomy planned Obesity Depression DJD (degenerative joint disease), thoracic Back pain Arthritis, rheumatoid Asthma Hypertension Surgical History H/O arthroscopy of shoulder Social History Household Members: Family Housing: House Do you presently have visiting nurse or other home services: No Patient Tobacco Use Status: Never used Tobacco e-Cigarette/Vaping Use: Never Used service: No Sexual orientation: Straight/Heterosexual Physical Exam Vital Signs: Last Vital Signs Pulse 82 03/28/24 09:18 Resp 16 03/28/24 09:18 BP 148/79 H 03/28/24 09:18 Pulse Ox 99 03/28/24 09:18 Oxygen Delivery Method Room Air 03/28/24 09:18 BMI result Body Mass Index 45.6 Office Procedures Cervical/Thoracic Facet Inj Details: Thoracic Medial Branch Block, Bilateral 9, 10, 11 medial branches After obtaining written consent, pre-procedure blood pressure and pulse were recorded and are in the nursing record for review. The patient was placed in a prone position. The respective thoracic area was prepped with chloraprep and draped in sterile fashion. The skin over the target medial branch nerves was anesthetized with 0.5% lidocaine. A 22 gauge 3.5 inch needle was inserted into the target medial branch nerve under fluoroscopic guidance. No paresthesias were elicited with needle placement and aspiration was negative for blood and CSF. Next 6.66 mg of methylprednisone mixed with 1 ml 0.25% ropivicaine was injected (1 cc total per level). The identical procedure was performed at the remaining levels. The skin was cleansed and a sterile bandage was applied. Following the procedure the patient's vital signs were stable. The patient tolerated the procedure well and no complications were encountered. Following the procedure the patient's vital signs were stable. The patient was discharged home in good condition with post-procedural instructions. Time Out: Immediately prior to the procedure, the following was verbally confirmed that there is a signed consent form and that the correct patient, planned procedure, site and side are consistent with documentation and that necessary equipment and/or blood products are available prior to the start of the case. Complications: none EBL: <5 cc 24799 - with Fluoroscopy 06633 - second level, with Fluoroscopy (bilateral) Procedure code (CPT) selection complete Assessment & Plan Assessment & Plan (1) Thoracic spondylosis: Code(s): M47.814 - Spondylosis without myelopathy or radiculopathy, thoracic region Category: Medical Plan Patient is status post T9, T10, T11 bilateral therapeutic medial branch blocks. Patient tolerated procedure well and was discharged home in stable condition with discharge instructions. All questions were answered. We will follow-up via telephone or in clinic to assess response to therapy. A follow-up appointment was made during today's visit. Orders: Orders FL guidance in treatment room Today M47.819 - Spondylosis without myelopathy or radiculopathy, site unspecified Coding Level of Care Code Procedure Only Diagnoses Thoracic spondylosis M47.814 CPT Codes Facet Injection Cervical/Thoracic - CPT: 71403 - with Fluoroscopy ([id number]) Facet Injection Cervical/Thoracic - CPT: 26248 - second level, with Fluoroscopy ([id number])
[2024-03-28 08:35] VITALS: BP 128/79; PULSE 80; RESP 16; O2SAT 97; BMI 45.6
[2024-03-28 09:18] VITALS: BP 148/79; PULSE 82; RESP 16; O2SAT 99; BMI 45.6
== END 2024-03-28 09:11 | disposition home or self-care (01) ==
LOC: HO.PMCPRC 08:23
PROVIDERS: PCP Internal Medicine; Referring Provider Internal Medicine; Visit Provider Internal Medicine
DX: M47.814 Spondylosis without myelopathy or radiculopathy, thoracic region (principal)
CPT/HCPCS: 64490; 64491

== ENCOUNTER 2024-04-01 12:15 | Outpatient (AMB) | payer MEDICAID, SELFPAY ==
--- NOTE | 2024-04-01 11:29 | MHC.OFFVIS ---
Intake Visit Reasons: s/p thoracic facets Allergies latex Allergy (Verified 03/28/24 08:38) unknown peanut Allergy (Verified 03/28/24 08:38) Unknown Penicillins [PCN] Allergy (Verified 03/28/24 08:38) Hives amoxicillin Adverse Reaction (Verified 03/28/24 08:38) Unknown hydrocodone Adverse Reaction (Verified 03/28/24 08:38) unknown oxycodone Adverse Reaction (Verified 03/28/24 08:38) Unknown HPI HPI s/p thoracic facets: Details: 43-year-old male who presents today to the office for a status post thoracic facets injection. The patient reports 80% relief following the procedure. He still has some discomfort in his neck and shoulder region. His last shoulder injection was in October 2023. He had no back surgery in the past. He inquired about the pain pump as a treatment option.? Past procedures 03/28/24: Thoracic Medial Branch Block, Bilateral 9, 10, 11 medial branches: 80% relief. 02/22/24: Radiofrequency lesioning medial branch nerves, RIGHT, C4, C5, C6 medial branches (2 levels, 3 nerves): 20% relief. 02/15/24: Radiofrequency lesioning medial branch nerves, LEFT, C4, C5, C6 medial branches (2 levels, 3 nerves): 80% relief. 02/01/24: Diagnostic Cervical Medial Branch Block, bilateral C3, C4, C5 medial branches: 80% relief. 01/24/24: Left shoulder acromioclavicular shoulder injection, US guided: % relief. 01/18/24: Diagnostic Cervical Medial Branch Block, Right C3, C4, C5 medial branches: % relief. 01/11/24: Diagnostic Cervical Medial Branch Block, Right C3, C4, C5 medial branches: 80% relief 11/30/23: Radiofrequency lesioning medial branch nerves, Left L3, L4 medial branches and L5 dorsal ramus (L4/5 and L5/S1) (2 levels, 3 nerves): 50% relief. 11/09/23: Radiofrequency lesioning medial branch nerves, Right L3, L4 medial branches and L5 dorsal ramus (L4/5 and L5/S1) (2 levels, 3 nerves): 50% relief. 10/23/23: Right acromioclavicular joint injection, under ultrasound guidance: % relief. 10/19/23: Lumbar Medial Branch Block, L3, L4 medial branches (1 level, 2 nerves): 50% relief. 10/09/23: Trigger point injections: 50% relief. 02/10/23: Trigger point injections: 50% relief for several weeks. 01/06/2023: Trigger point injection: 50% relief for 2 weeks 12/02/2022: Trigger point injection: 50% relief for several days. 10/21/2022: Trigger point injection given to bilateral cervical paraspinal, trapezius, and thoracic rhomboid muscles: 50% relief. 08/10/22: Sprint Trial Implant ? 50% relief overall, worse since device removal. 07/13/22: Right L2-L3 Diagnostic MBBs - >50% relief. [facility] Medical History Post traumatic stress disorder (PTSD) MDD (major depressive disorder), recurrent episode, moderate Anxiety Spondylosis of cervical spine Cholecystectomy planned Obesity Depression DJD (degenerative joint disease), thoracic Back pain Arthritis, rheumatoid Asthma Hypertension Surgical History H/O arthroscopy of shoulder Social History Household Members: Family Housing: House Do you presently have visiting nurse or other home services: No Patient Tobacco Use Status: Never used Tobacco e-Cigarette/Vaping Use: Never Used service: No Sexual orientation: Straight/Heterosexual Review of Systems Const All systems reviewed & are unremarkable except as noted in HPI and below Telehealth Telehealth Telehealth Platform: [facility] Location of provider rendering services: practice address Location of patient: address on file Patient Identification confirmed using: Name, : Yes Telehealth method: video Patient verbally consented to treatment: Yes Patient verbally consented to billing insurance company: Yes Patient informed of any privacy concerns related to visit: Yes Minutes spent on Phone/Video with Pt.: 10 Results Reviewed Results Reviewed: No imaging is available for review. Assessment & Plan Assessment & Plan (1) Thoracic spondylosis: Code(s): M47.814 - Spondylosis without myelopathy or radiculopathy, thoracic region Category: Medical (2) Acromioclavicular joint arthritis: Code(s): M19.019 - Primary osteoarthritis, unspecified shoulder Category: Medical Plan We will schedule him for a right shoulder subacromial bursa injection. Discussed the risks and benefits of the procedure with the patient in detail. All questions were answered. The patient is on board with the plan. Justification for interventional therapy: ? Patient with average pain > 6/10 ? Patient has exhausted conservative therapy ? Patient unable to tolerate physical therapy due to pain. . Patient has a good understanding of their pain condition and has appropriate mental and social support Scribed for Dr. Giron by Vinicio Booker, medical terminologist, on 04/01/2024. I, Dr. Giron, have personally reviewed and agree with the information entered by the scribe. Coding Level of Care Code Tele Est Pt Level 3 (24549) Diagnoses Thoracic spondylosis M47.814 Acromioclavicular joint arthritis M19.019
== END 2024-04-01 12:15 | disposition home or self-care (01) ==
LOC: HO.PMC 12:15
PROVIDERS: PCP Internal Medicine; Visit Provider Internal Medicine
DX: M47.814 Spondylosis without myelopathy or radiculopathy, thoracic region (principal); M19.019 Primary osteoarthritis, unspecified shoulder
CPT/HCPCS: 99024

== ENCOUNTER → 2024-04-01 12:15 | Outpatient (BNVA) | payer MEDICAID, SELFPAY | PROVIDERS: PCP Internal Medicine; Visit Provider Internal Medicine ==

== ENCOUNTER 2024-05-01 08:53 | Outpatient (AMB) | payer MEDICAID, SELFPAY ==
--- NOTE | 2024-05-01 08:56 | MHC.OFFVIS ---
Vital Signs 05/01/24 08:57 Height 5 ft 11 in Weight 341 lb BMI 47.6 BP 146/98 H Blood Pressure Location Rt radial Position Sitting Respiration 16 Pulse 89 Pulse Source Pulse Oximeter Pulse Oximetry (%) 98 Oxygen Delivery Method Room Air Intake Visit Reasons: Right subacromial Bursa inj/ TPI Allergies latex Allergy (Verified 05/01/24 09:00) unknown peanut Allergy (Verified 05/01/24 09:00) Unknown Penicillins [PCN] Allergy (Verified 05/01/24 09:00) Hives amoxicillin Adverse Reaction (Verified 05/01/24 09:00) Unknown hydrocodone Adverse Reaction (Verified 05/01/24 09:00) unknown oxycodone Adverse Reaction (Verified 05/01/24 09:00) Unknown Medication List - Last Reconciled 05/01/24 by Mer Cornejo LPN albuterol 90 mcg/actuation 90 mcg inhalation cyclobenzaprine 5 mg PO TID PRN 7 days dulaglutide (Trulicity) 4.5 mg subcut QWEEK fluticasone propionate 50 mcg/actuation (Flonase Allergy Relief) 2 sprays intranasal DAILY ketotifen fumarate 0.025%(0.035%) (Alaway) 2 drps ophthalmic (eye) DAILY tadalafil 20 mg PO DAILY PRN testosterone cypionate 200 mg IM QWEEK [facility] Medical History Post traumatic stress disorder (PTSD) MDD (major depressive disorder), recurrent episode, moderate Anxiety Spondylosis of cervical spine Cholecystectomy planned Obesity Depression DJD (degenerative joint disease), thoracic Back pain Arthritis, rheumatoid Asthma Hypertension Surgical History H/O arthroscopy of shoulder Social History Household Members: Family Housing: House Do you presently have visiting nurse or other home services: No Patient Tobacco Use Status: Never used Tobacco e-Cigarette/Vaping Use: Never Used service: No Sexual orientation: Straight/Heterosexual Review of Systems Const All systems reviewed & are unremarkable except as noted in HPI and below Physical Exam Vital Signs: Last Vital Signs Pulse 89 05/01/24 08:57 Resp 16 05/01/24 08:57 BP 146/98 H 05/01/24 08:57 Pulse Ox 98 05/01/24 08:57 Oxygen Delivery Method Room Air 05/01/24 08:57 BMI result Body Mass Index 47.6 General: Appears afebrile. Alert and oriented. Mood and affect appropriate. Follows and participates in conversation appropriately. Respiratory effort is unlabored. Able to transition from sit to stand unassisted. Results Reviewed Results Reviewed: No imaging is available for review Assessment & Plan Scribe Plan - Not visible on output: Scribed for Dr. Giron by Anisa White, medical support specialist, on 09/20/2023. I, Dr. Giron, have personally reviewed and agree with the information entered by the scribe. Coding
[2024-05-01 08:57] VITALS: BP 146/98; PULSE 89; RESP 16; O2SAT 98; BMI 47.6
--- NOTE | 2024-05-01 09:40 | MHC.OFFVIS ---
Vital Signs 05/01/24 08:57 Height 5 ft 11 in Weight 341 lb BMI 47.6 BP 146/98 H Blood Pressure Location Rt radial Position Sitting Respiration 16 Pulse 89 Pulse Source Pulse Oximeter Pulse Oximetry (%) 98 Oxygen Delivery Method Room Air Intake Visit Reasons: Right subacromial Bursa inj/ TPI Allergies latex Allergy (Verified 05/01/24 09:00) unknown peanut Allergy (Verified 05/01/24 09:00) Unknown Penicillins [PCN] Allergy (Verified 05/01/24 09:00) Hives amoxicillin Adverse Reaction (Verified 05/01/24 09:00) Unknown hydrocodone Adverse Reaction (Verified 05/01/24 09:00) unknown oxycodone Adverse Reaction (Verified 05/01/24 09:00) Unknown Medication List - Last Reconciled 05/01/24 by Mer Cornejo LPN albuterol 90 mcg/actuation 90 mcg inhalation cyclobenzaprine 5 mg PO TID PRN 7 days dulaglutide (Trulicity) 4.5 mg subcut QWEEK fluticasone propionate 50 mcg/actuation (Flonase Allergy Relief) 2 sprays intranasal DAILY ketotifen fumarate 0.025%(0.035%) ([place]away) 2 drps ophthalmic (eye) DAILY tadalafil 20 mg PO DAILY PRN testosterone cypionate 200 mg IM QWEEK HPI HPI Right subacromial Bursa inj/ TPI: Details: 43-year-old male who presents today to the office for right subacromial bursa injection. He reports that his right shoulder is still bothersome. Denies any recent cough, cold, infection, fever or other significant changes in medical history since last office visit. [facility] Medical History Post traumatic stress disorder (PTSD) MDD (major depressive disorder), recurrent episode, moderate Anxiety Spondylosis of cervical spine Cholecystectomy planned Obesity Depression DJD (degenerative joint disease), thoracic Back pain Arthritis, rheumatoid Asthma Hypertension Surgical History H/O arthroscopy of shoulder Social History Household Members: Family Housing: House Do you presently have visiting nurse or other home services: No Patient Tobacco Use Status: Never used Tobacco e-Cigarette/Vaping Use: Never Used service: No Sexual orientation: Straight/Heterosexual Physical Exam Vital Signs: Last Vital Signs Pulse 89 05/01/24 08:57 Resp 16 05/01/24 08:57 BP 146/98 H 05/01/24 08:57 Pulse Ox 98 05/01/24 08:57 Oxygen Delivery Method Room Air 05/01/24 08:57 BMI result Body Mass Index 47.6 Office Procedures Joint Injection/Aspiration Joint Injection/Aspiration Details: Right subacromial shoulder injection, under ultrasound guidance Primary Site: right shoulder Prep: site was prepped using aseptic technique and site was prepped using sterile technique Injected: 40 mg of, Kenalog, with 3 mL of, 0.25% ropivacaine and in the subcromial space (on right side) Approach Used: posterolateral Procedure: The patient tolerated the procedure well Details: An ultrasound image of the injection was taken and stored in the permanent record. Primary Site: right shoulder Coding 58824 - Acromioclavicular Procedure code (CPT) selection complete Assessment & Plan Assessment & Plan (1) Acromioclavicular joint arthritis: Code(s): M19.019 - Primary osteoarthritis, unspecified shoulder Category: Medical (2) Right shoulder pain: Code(s): M25.511 - Pain in right shoulder Category: Medical Plan Patient is status post a right subacromial bursa steroid injection. Patient tolerated procedure well and was discharged home in stable condition with discharge instructions. All questions were answered. Follow-up as needed. Coding Level of Care Code Procedure Only Diagnoses Acromioclavicular joint arthritis M19.019 Right shoulder pain M25.511 CPT Codes Coding - Joint 5: 98268 - Acromioclavicular ([id number])
== END 2024-05-01 09:37 | disposition home or self-care (01) ==
PROVIDERS: PCP Internal Medicine; Visit Provider Internal Medicine
DX: M19.011 Primary osteoarthritis, right shoulder (principal)
CPT/HCPCS: 20606

== ENCOUNTER → 2024-05-01 08:53 | Outpatient (BNVA) | payer MEDICAID, SELFPAY | PROVIDERS: PCP Internal Medicine; Visit Provider Internal Medicine | DX: M19.019 Primary osteoarthritis, unspecified shoulder (principal); M25.511 Pain in right shoulder | CPT/HCPCS: 20606; J2795; J3301 ==